=== PATIENT | male | born 1955 | race Two or more races ===

== ENCOUNTER 2021-11-03 21:44 | Emergency (ER) | payer BC ==
[~2021-11-03] VITALS: Ht 180.3 cm; Wt 108.8 kg
[2021-11-03 22:56] LABS: Basophils # (auto) 0.1 10 ^3/uL (0-0.2); Basophils % (auto) 0.6 % (0.0-2.0); Eosinophils # (auto) 0.1 10 ^3/uL (0-0.8); Eosinophils % (auto) 1.4 % (0.0-7.0); Hematocrit 44.2 % (41.0-53.0); Hemoglobin 14.4 g/dL (13.5-17.5); Lymphocytes % (auto) 33.3 % (10.0-50.0); Mean Corpuscular Hemoglobin 27.3 pg (28.0-32.0); Mean Corpuscular Hgb Conc. 32.6 g/dL (32.0-36.0); Mean Corpuscular Volume 83.7 fL (80.0-100.0); Monocytes # (auto) 0.7 10 ^3/uL (0-1.3); Monocytes % (auto) 7.8 % (0.0-12.0); Neutrophils # (auto) 5.2 10 ^3/uL (1.6-8.6); Neutrophils % (auto) 56.9 % (37.0-80.0); Nucleated Red Blood Cells % 0.1 %; Red Blood Cells 5.28 10^6/uL (4.5-5.90); Red Cell Distribution Width 18.4 % (11.8-14.3); White Blood Cell 9.1 10^3/uL (4.4-10.8)
[2021-11-04 00:48] LABS: Albumin 3.3 g/dL (3.4-5.0); BUN/Creatinine Ratio 8.4; Bilirubin, Total 0.5 mg/dL (0.2-1.0); Calcium 8.1 mg/dL (8.5-10.1); Magnesium 2.1 mg/dL (1.6-2.6); Potassium 4.1 mmol/L (3.5-5.1); Total Protein 7.6 g/dL (6.4-8.2)
[2021-11-04 01:14] LABS: Acetaminophen < 2.0 ug/mL (10-30); Salicylate < 1.7 mg/dL (2.8-20.0)
[2021-11-04] MEDS ORDERED: chlordiazePOXIDE HCL 25 MG CAP PO ONE (07:45)
[2021-11-04] MEDS ORDERED: SODIUM CHLORIDE 0.9% 1,000 ML IV ONE ×2 (07:45)
[2021-11-04] MEDS ORDERED: THIAMINE 100mg/ml INJ (200mg/2ml VIAL) IV ONE (10:15)
[2021-11-04] MEDS ORDERED: LORazepam 2MG/ML-1ML VIAL IV ONE ×3 (10:15→22:00)
[2021-11-04 14:57] LABS: Urine Bacteria NONE SEEN /hpf (None Seen); Urine Blood Negative /uL (Negative); Urine Hyaline Cast FEW /lpf (0 - 2); Urine Specific Gravity 1.023 (1.001-1.035); Urine WBC 3 /hpf (0 - 3)
[2021-11-04] MEDS ORDERED: ONDANSETRON HCL 4 MG/2 ML VIAL IV ONE (15:00)
[2021-11-04 15:20] LABS: Alcohol, Urine < 3.0 mg/dL (0-10); Amphetamine Screen, Urine NEGATIVE (NEGATIVE); Barbiturate Scree,Urine NEGATIVE (NEGATIVE); Benzodiazephine Screen, Urine POSITIVE (NEGATIVE); Cannabinoid Screen, Urine NEGATIVE (NEGATIVE); Cocaine Screen, Urine NEGATIVE (NEGATIVE); Opiate Scree,Urine NEGATIVE (NEGATIVE); Phencyclidine Screen, Urine NEGATIVE (NEGATIVE)
[2021-11-04] MEDS ORDERED: MIRTAZAPINE 30 MG TAB PO SCH (22:00)
[2021-11-04 23:00] VITALS: BP 128/80
== END 2021-11-05 07:45 | disposition home or self-care (01) ==
LOC: ER 22:04
DX: R45.851 Suicidal ideations (principal); F10.10 Alcohol abuse, uncomplicated
CPT/HCPCS: 36415; 80053; 80307; 80320; 80329; 81001; 83735; 85025; 96361; 96374; 96375; 96376; 99285; J2060; J2405; J3411; J7030

== ENCOUNTER 2022-05-26 03:00 | Observation (INO) | payer BC ==
[~2022-05-26] VITALS: Ht 180.3 cm; Wt 105.1 kg
[2022-05-26 04:11] LABS: Albumin 3.4 g/dL (3.4-5.0); BUN/Creatinine Ratio 9.1 (10.0-20.0); Magnesium 1.8 mg/dL (1.6-2.6); Potassium 4.2 mmol/L (3.5-5.1)
[2022-05-26 04:18] LABS: Basophils # (auto) 0 10 ^3/uL (0-0.2); Basophils % (auto) 0.5 % (0.0-2.0); Eosinophils # (auto) 0 10 ^3/uL (0-0.8); Eosinophils % (auto) 0.4 % (0.0-7.0); Hematocrit 39.7 % (41.0-53.0); Hemoglobin 13.2 g/dL (13.5-17.5); Lymphocytes # (auto) 2.4 10 ^3/uL (0.4-5.4); Lymphocytes % (auto) 38.6 % (10.0-50.0); Mean Corpuscular Hemoglobin 27.5 pg (28.0-32.0); Mean Corpuscular Hgb Conc. 33.2 g/dL (32.0-36.0); Mean Corpuscular Volume 82.6 fL (80.0-100.0); Monocytes # (auto) 0.5 10 ^3/uL (0-1.3); Monocytes % (auto) 7.3 % (0.0-12.0); Neutrophils # (auto) 3.4 10 ^3/uL (1.6-8.6); Neutrophils % (auto) 53.2 % (37.0-80.0); Nucleated Red Blood Cells % 0.1 %; Red Cell Distribution Width 19.2 % (11.8-14.3); White Blood Cell 6.3 10^3/uL (4.4-10.8)
[2022-05-26 04:19] LABS: Bilirubin, Total 0.9 mg/dL (0.2-1.0); Total Protein 7.3 g/dL (6.4-8.2)
[2022-05-26] MEDS ORDERED: SODIUM CHLORIDE 0.9% 1,000 ML IV ONE (05:00)
[2022-05-26 05:40] LABS: Urine Bacteria NONE SEEN /hpf (None Seen); Urine Blood Negative /uL (Negative); Urine Specific Gravity 1.004 (1.001-1.035); Urine WBC <1 /hpf (0 - 3)
[2022-05-26 05:54] LABS: Amphetamine Screen, Urine NEGATIVE (NEGATIVE); Barbiturate Scree,Urine NEGATIVE (NEGATIVE); Benzodiazephine Screen, Urine NEGATIVE (NEGATIVE); Cannabinoid Screen, Urine NEGATIVE (NEGATIVE); Cocaine Screen, Urine NEGATIVE (NEGATIVE); Phencyclidine Screen, Urine NEGATIVE (NEGATIVE)
[2022-05-26 06:03] LABS: Opiate Scree,Urine NEGATIVE (NEGATIVE)
[2022-05-26] MEDS ORDERED: THIAMINE 100mg/ml INJ (200mg/2ml VIAL) IV ONE (06:30)
[2022-05-26] MEDS ORDERED: chlordiazePOXIDE HCL 25 MG CAP PO ONE (06:30)
[2022-05-26] MEDS ORDERED: LORazepam 2MG/ML-1ML VIAL IV ONE ×4 (06:30→15:45)
[2022-05-26] MEDS ORDERED: FOLIC ACID 1 MG TAB PO ONE (06:30)
[2022-05-26] MEDS ORDERED: D5W/SOD CHLO 0.9% 1,000 ML IV ONE (06:45)
[2022-05-26] MEDS ORDERED: ONDANSETRON HCL 4 MG/2 ML VIAL IV ONE (09:45)
[2022-05-26] MEDS ORDERED: dilTIAZem 25 MG/5 ML VIAL IV ONE ×3 (13:30→22:30)
[2022-05-26] MEDS ORDERED: dilTIAZem HCL 60 MG TAB GT ONE (13:30)
[2022-05-26] MEDS ORDERED: ONDANSETRON HCL 4 MG/2 ML VIAL IV PRN (15:45)
[2022-05-26] MEDS ORDERED: ACETAMINOPHEN 325 MG TAB PO PRN (15:45)
[2022-05-26] MEDS: METOPROLOL TARTRATE 25 MG TAB PO SCH ×2 (16:33→22:32)
[2022-05-26] MEDS: chlordiazePOXIDE HCL 25 MG CAP PO SCH ×2 (19:02→22:00)
[2022-05-26 22:00] VITALS: BP 135/75
[2022-05-26] MEDS: GABAPENTIN 100 MG CAP PO SCH (22:00)
[2022-05-26 23:04] VITALS: BP 135/75
[2022-05-27] MEDS ORDERED: CHOL200035 PO (00:17)
[2022-05-27] MEDS ORDERED: QUET100T47 PO (00:17)
[2022-05-27] MEDS ORDERED: ESCI-28 PO (00:17)
[2022-05-27] MEDS ORDERED: PRE5T PO (00:17)
[2022-05-27] MEDS ORDERED: FOLI1TAB6 PO ×2 (00:17→11:18)
[2022-05-27] MEDS ORDERED: GAB100C PO ×2 (00:17→11:18)
[2022-05-27] MEDS: chlordiazePOXIDE HCL 25 MG CAP PO SCH ×3 (02:15→10:08)
[2022-05-27 05:00] VITALS: BP 119/86
[2022-05-27] MEDS: GABAPENTIN 100 MG CAP PO SCH ×2 (05:36→14:00)
[2022-05-27 06:40] LABS: Calcium 8.4 mg/dL (8.5-10.1)
[2022-05-27 06:42] LABS: BUN/Creatinine Ratio 11.3 (10.0-20.0)
[2022-05-27 09:00] VITALS: BP 134/75
[2022-05-27] MEDS: METOPROLOL TARTRATE 25 MG TAB PO SCH (10:09)
[2022-05-27] MEDS ORDERED: OPTISON 3ml Vial for INJ IV ONE (11:00)
[2022-05-27] MEDS ORDERED: METOPROLOL TARTRATE 25 MG TAB PO ONE (11:15)
[2022-05-27] MEDS ORDERED: METO25TA5 PO ×2 (11:18)
[2022-05-27] MEDS ORDERED: THIA100T5 PO (11:18)
[2022-05-27] MEDS ORDERED: FOLIC ACID 1 MG, MULTIPLE VITAMIN 10 ML, MAGNESIUM SULF SDV 50% 8 MEQ, THIAMINE INJ 100... INJ SCH ×5 (12:00)
[2022-05-27 13:00] VITALS: BP 137/81
[2022-05-27] MEDS ORDERED: chlordiazePOXIDE HCL 25 MG CAP PO PRN (13:00)
[2022-05-27] MEDS ORDERED: MET25T PO ×2 (13:30)
[2022-05-27] MEDS ORDERED: LOS25T PO (15:43)
[2022-05-27] MEDS ORDERED: APIX5TAB PO (15:43)
[2022-05-27] MEDS ORDERED: METO25TA93 PO (15:43)
[2022-05-27 16:47] VITALS: BP 167/94
[2022-05-27 17:05] VITALS: BP 132/74
[2022-05-27] MEDS ORDERED: APIXABAN 5 MG TAB PO SCH (17:21)
[2022-05-27 17:45] VITALS: BP 141/94
[2022-05-27] MEDS ORDERED: METOPROLOL TARTRATE 25 MG TAB PO SCH ×2 (22:00)
== END 2022-05-27 17:45 | disposition home or self-care (01) ==
LOC: ER 03:00 → TELE 15:50 → TELE-WESTW 21:53
PROVIDERS: ADMIT Internal Medicine; ATTEND Internal Medicine
DX: F10.239 Alcohol dependence with withdrawal, unspecified (principal); Z20.822 Contact with and (suspected) exposure to COVID-19; I48.20 Chronic atrial fibrillation, unspecified; I11.0 Hypertensive heart disease with heart failure; I50.20 Unspecified systolic (congestive) heart failure; M19.90 Unspecified osteoarthritis, unspecified site; F41.8 Other specified anxiety disorders; E87.1 Hypo-osmolality and hyponatremia; I42.6 Alcoholic cardiomyopathy; I48.91 Unspecified atrial fibrillation; Z79.01 Long term (current) use of anticoagulants; Z79.899 Other long term (current) drug therapy; Z86.73 Personal history of transient ischemic attack (TIA), and cerebral infarction without residual deficits
CPT/HCPCS: 36415; 71045; 80048; 80053; 80307; 80320; 81001; 82962; 83735; 85025; 87426; 93005; 93306; 96361; 96365; 96366; 96375; 96376; 99291; G0378; J2060; J2405; J3411; J3475; J7030; J7070; Q9956

== ENCOUNTER 2022-07-04 17:41 | Inpatient (IN) | payer BC ==
[~2022-07-04] VITALS: Ht 162.6 cm; Wt 105.0 kg
[~2022-07-04 17:41] MED LIST: APIX5TAB PO; CHOL200043 PO; ESCI1TAB36 PO; FOLI-119 PO; GAB100C PO; LOS25T PO; METO25TA93 PO; PRE5T PO; QUET100T47 PO; THIA100T5 PO
[2022-07-04] MEDS ORDERED: SODIUM CHLORIDE 0.9% 500 ML IV ONE (19:00)
[2022-07-04 19:12] LABS: Basophils # (auto) 0 10 ^3/uL (0-0.2); Basophils % (auto) 0.1 % (0.0-2.0); Eosinophils # (auto) 0 10 ^3/uL (0-0.8); Hematocrit 43.7 % (41.0-53.0); Hemoglobin 13.7 g/dL (13.5-17.5); Lymphocytes # (auto) 0.8 10 ^3/uL (0.4-5.4); Lymphocytes % (auto) 6.6 % (10.0-50.0); Mean Corpuscular Hemoglobin 27.4 pg (28.0-32.0); Mean Corpuscular Hgb Conc. 31.4 g/dL (32.0-36.0); Mean Corpuscular Volume 87.3 fL (80.0-100.0); Monocytes # (auto) 0.9 10 ^3/uL (0-1.3); Monocytes % (auto) 7.4 % (0.0-12.0); Neutrophils # (auto) 10.4 10 ^3/uL (1.6-8.6); Neutrophils % (auto) 85.9 % (37.0-80.0); Nucleated Red Blood Cells % 0.1 %; White Blood Cell 12.1 10^3/uL (4.4-10.8)
[2022-07-04 19:18] LABS: Red Cell Distribution Width 23.7 % (11.8-14.3)
[2022-07-04 19:46] LABS: Alanine Aminotransferase 65 U/L (16-61); Albumin 2.6 g/dL (3.4-5.0); Anion Gap 18 (5-15); Aspartate Aminotransferase 75 U/L (15-37); BUN/Creatinine Ratio 20.3 (10.0-20.0); Blood Alcohol < 3.0 mg/dL (0-5); Blood Urea Nitrogen 24 mg/dL (7-18); Carbon Dioxide 21 mmol/L (21-32); Chloride 98 mmol/L (98-107); GFR African American 79 mL/min; GFR Non-African American 65 mL/min; Glucose 125 mg/dL (74-106); Potassium 4.1 mmol/L (3.5-5.1); Sodium 137 mmol/L (136-145)
[2022-07-04 19:49] LABS: Alkaline Phosphatase 144 U/L (45-117); Bilirubin, Total 1.7 mg/dL (0.2-1.0); Total Protein 6.5 g/dL (6.4-8.2)
[2022-07-04 19:50] LABS: Lactic Acid w/Reflex 2.5 mmol/L (0.4-2.0)
[2022-07-04] MEDS ORDERED: LORazepam 2MG/ML-1ML VIAL IV ONE ×2 (20:00→21:15)
[2022-07-04] MEDS ORDERED: FOLIC ACID 1 MG, MULTIPLE VITAMIN 10 ML, MAGNESIUM SULF SDV 50% 8 MEQ, THIAMINE INJ 100... INJ SCH ×5 (20:13)
[2022-07-04] MEDS ORDERED: DOCUSATE SOD 100 MG CAP PO PRN (23:45)
[2022-07-04] MEDS ORDERED: HYDROcodone-ACET 5/325MG TAB PO PRN (23:45)
[2022-07-04] MEDS ORDERED: ACETAMINOPHEN 325 MG TAB PO PRN (23:45)
[2022-07-04] MEDS ORDERED: MORPHINE SULFATE INJ 2 MG/ml SYRG IV PRN (23:45)
[2022-07-04] MEDS ORDERED: ONDANSETRON HCL 4 MG/2 ML VIAL IV PRN (23:45)
[2022-07-04] MEDS ORDERED: NITROGLYCERIN 0.4 MG SL TAB SL PRN (23:45)
[2022-07-05] MEDS ORDERED: hydrALAZINE HCL 20 MG/ML VL IV PRN
[2022-07-05] MEDS: SODIUM CHLORIDE 0.9% 1,000 ML IV SCH ×3 (01:10→19:45)
[2022-07-05 03:43] VITALS: BP 143/95
[2022-07-05 05:53] LABS: Calcium 7.9 mg/dL (8.5-10.1); Potassium 3.2 mmol/L (3.5-5.1)
[2022-07-05] MEDS: chlordiazePOXIDE HCL 25 MG CAP PO PRN ×2 (05:55→21:16)
[2022-07-05] MEDS: GABAPENTIN 300 MG CAP PO SCH ×3 (05:55→21:16)
[2022-07-05] MEDS: IPRATROPIUM BROM 0.5 MG/2.5ML INH SOL NEB SCH ×4 (05:58→23:47)
[2022-07-05] MEDS: ALBUTEROL SULF 2.5 MG/0.5ML(0.5%) NEB SOLN NEB SCH ×4 (05:58→23:47)
[2022-07-05 06:01] LABS: Basophils # (auto) 0 10 ^3/uL (0-0.2); Basophils % (auto) 0.2 % (0.0-2.0); Eosinophils # (auto) 0 10 ^3/uL (0-0.8); Eosinophils % (auto) 0.1 % (0.0-7.0); Hematocrit 37.6 % (41.0-53.0); Hemoglobin 12.5 g/dL (13.5-17.5); Lymphocytes # (auto) 1.2 10 ^3/uL (0.4-5.4); Lymphocytes % (auto) 12.3 % (10.0-50.0); Mean Corpuscular Hemoglobin 28.6 pg (28.0-32.0); Mean Corpuscular Hgb Conc. 33.1 g/dL (32.0-36.0); Mean Corpuscular Volume 86.3 fL (80.0-100.0); Monocytes # (auto) 0.8 10 ^3/uL (0-1.3); Monocytes % (auto) 8.7 % (0.0-12.0); Neutrophils # (auto) 7.5 10 ^3/uL (1.6-8.6); Neutrophils % (auto) 78.7 % (37.0-80.0); Red Blood Cells 4.36 10^6/uL (4.5-5.90); White Blood Cell 9.5 10^3/uL (4.4-10.8)
[2022-07-05 06:16] LABS: Red Cell Distribution Width 23.1 % (11.8-14.3)
[2022-07-05] MEDS: LORazepam 2MG/ML-1ML VIAL IV PRN (06:21)
[2022-07-05] MEDS: PANTOPRAZOLE 40 MG/10 ML VIAL INJ IV SCH (10:04)
[2022-07-05] MEDS: METOPROLOL SUCCINATE XL 50 MG TAB PO SCH (10:05)
[2022-07-05] MEDS ORDERED: FOLIC ACID 1 MG, MULTIPLE VITAMIN 10 ML, MAGNESIUM SULF SDV 50% 8 MEQ, THIAMINE INJ 100... INJ SCH ×15 (12:00)
[2022-07-05] MEDS ORDERED: POTASSIUM EFFERVESENT TAB 25 MEQ PO ONE (12:30)
[2022-07-05 16:30] VITALS: BP 110/67
[2022-07-05 20:00] VITALS: BP 123/71
[2022-07-05 22:00] VITALS: BP 123/71
[2022-07-06] MEDS: chlordiazePOXIDE HCL 25 MG CAP PO PRN ×3 (03:06→20:34)
[2022-07-06 04:56] VITALS: BP 103/61
[2022-07-06] MEDS: SODIUM CHLORIDE 0.9% 1,000 ML IV SCH ×2 (05:45→15:40)
[2022-07-06] MEDS: GABAPENTIN 300 MG CAP PO SCH ×3 (05:51→20:34)
[2022-07-06 06:33] LABS: Basophils # (auto) 0 10 ^3/uL (0-0.2); Basophils % (auto) 0.2 % (0.0-2.0); Eosinophils # (auto) 0 10 ^3/uL (0-0.8); Eosinophils % (auto) 0.1 % (0.0-7.0); Hematocrit 35.3 % (41.0-53.0); Hemoglobin 11.8 g/dL (13.5-17.5); Lymphocytes # (auto) 0.9 10 ^3/uL (0.4-5.4); Lymphocytes % (auto) 13.8 % (10.0-50.0); Mean Corpuscular Hemoglobin 28.9 pg (28.0-32.0); Mean Corpuscular Hgb Conc. 33.3 g/dL (32.0-36.0); Mean Corpuscular Volume 86.6 fL (80.0-100.0); Monocytes # (auto) 0.6 10 ^3/uL (0-1.3); Monocytes % (auto) 9.1 % (0.0-12.0); Neutrophils # (auto) 4.9 10 ^3/uL (1.6-8.6); Neutrophils % (auto) 76.8 % (37.0-80.0); Nucleated Red Blood Cells % 0.1 %; Potassium 3.8 mmol/L (3.5-5.1); Red Blood Cells 4.08 10^6/uL (4.5-5.90); White Blood Cell 6.4 10^3/uL (4.4-10.8)
[2022-07-06 06:38] LABS: Red Cell Distribution Width 22.8 % (11.8-14.3)
[2022-07-06 06:47] LABS: Calcium 7.9 mg/dL (8.5-10.1)
[2022-07-06] MEDS: ALBUTEROL SULF 2.5 MG/0.5ML(0.5%) NEB SOLN NEB SCH ×3 (07:12→18:49)
[2022-07-06] MEDS: IPRATROPIUM BROM 0.5 MG/2.5ML INH SOL NEB SCH ×3 (07:12→18:49)
[2022-07-06 08:56] VITALS: BP 113/68
[2022-07-06] MEDS: METOPROLOL SUCCINATE XL 50 MG TAB PO SCH (09:40)
[2022-07-06] MEDS: PANTOPRAZOLE 40 MG/10 ML VIAL INJ IV SCH (09:40)
[2022-07-06 13:00] VITALS: BP 103/57
[2022-07-06 16:50] VITALS: BP 100/62
[2022-07-06] MEDS: HYDROcodone-ACET 5/325MG TAB PO PRN (20:35)
[2022-07-06 22:00] VITALS: BP 105/73
[2022-07-07] MEDS: IPRATROPIUM BROM 0.5 MG/2.5ML INH SOL NEB SCH ×4 (00:33→19:22)
[2022-07-07] MEDS: ALBUTEROL SULF 2.5 MG/0.5ML(0.5%) NEB SOLN NEB SCH ×4 (00:33→19:22)
[2022-07-07] MEDS: SODIUM CHLORIDE 0.9% 1,000 ML IV SCH ×3 (01:45→21:45)
[2022-07-07 04:56] VITALS: BP 132/74
[2022-07-07] MEDS: chlordiazePOXIDE HCL 25 MG CAP PO PRN ×2 (05:55→12:34)
[2022-07-07] MEDS: GABAPENTIN 300 MG CAP PO SCH ×3 (05:55→21:23)
[2022-07-07 06:28] LABS: Basophils # (auto) 0 10 ^3/uL (0-0.2); Basophils % (auto) 0.6 % (0.0-2.0); Eosinophils # (auto) 0.1 10 ^3/uL (0-0.8); Eosinophils % (auto) 1.4 % (0.0-7.0); Hematocrit 34.7 % (41.0-53.0); Hemoglobin 11.4 g/dL (13.5-17.5); Lymphocytes # (auto) 1.2 10 ^3/uL (0.4-5.4); Lymphocytes % (auto) 22.3 % (10.0-50.0); Mean Corpuscular Hemoglobin 28.9 pg (28.0-32.0); Mean Corpuscular Hgb Conc. 32.8 g/dL (32.0-36.0); Monocytes # (auto) 0.6 10 ^3/uL (0-1.3); Monocytes % (auto) 11.7 % (0.0-12.0); Neutrophils # (auto) 3.4 10 ^3/uL (1.6-8.6); Nucleated Red Blood Cells % 0.1 %; Red Blood Cells 3.94 10^6/uL (4.5-5.90); White Blood Cell 5.3 10^3/uL (4.4-10.8)
[2022-07-07 06:38] LABS: Red Cell Distribution Width 22.7 % (11.8-14.3)
[2022-07-07 08:43] VITALS: BP 122/56
[2022-07-07] MEDS: PANTOPRAZOLE 40 MG/10 ML VIAL INJ IV SCH (09:16)
[2022-07-07] MEDS: METOPROLOL SUCCINATE XL 50 MG TAB PO SCH (09:17)
[2022-07-07 10:13] LABS: Potassium 3.9 mmol/L (3.5-5.1)
[2022-07-07 10:20] LABS: Albumin 1.9 g/dL (3.4-5.0); BUN/Creatinine Ratio 15.2 (10.0-20.0); Bilirubin, Total 0.6 mg/dL (0.2-1.0); Calcium 7.6 mg/dL (8.5-10.1); Magnesium 1.8 mg/dL (1.6-2.6); Phosphorus 1.6 mg/dL (2.5-4.90); Total Protein 5.3 g/dL (6.4-8.2)
[2022-07-07] MEDS: POTASSIUM PHOSPHATE IV SCH ×2 (12:24→15:59)
[2022-07-07] MEDS: D5W 5% IV SCH ×2 (12:24→15:59)
[2022-07-07] MEDS: HYDROcodone-ACET 5/325MG TAB PO PRN ×2 (12:34→21:24)
[2022-07-07 12:47] VITALS: BP 121/76
[2022-07-07 16:49] VITALS: BP 133/84
[2022-07-07 20:00] VITALS: BP 134/74
[2022-07-07 22:00] VITALS: BP 134/74
[2022-07-08] VITALS (7 sets, daily range): BP systolic 114–148; BP diastolic 73–85
[2022-07-08] MEDS: IPRATROPIUM BROM 0.5 MG/2.5ML INH SOL NEB SCH ×4 (00:44→18:37)
[2022-07-08] MEDS: ALBUTEROL SULF 2.5 MG/0.5ML(0.5%) NEB SOLN NEB SCH ×4 (00:44→18:37)
[2022-07-08 05:12] LABS: Basophils # (auto) 0 10 ^3/uL (0-0.2); Basophils % (auto) 0.6 % (0.0-2.0); Eosinophils # (auto) 0.1 10 ^3/uL (0-0.8); Eosinophils % (auto) 1.5 % (0.0-7.0); Hematocrit 33.4 % (41.0-53.0); Hemoglobin 11.2 g/dL (13.5-17.5); Lymphocytes # (auto) 1.2 10 ^3/uL (0.4-5.4); Lymphocytes % (auto) 26.8 % (10.0-50.0); Mean Corpuscular Hemoglobin 29.2 pg (28.0-32.0); Mean Corpuscular Hgb Conc. 33.4 g/dL (32.0-36.0); Mean Corpuscular Volume 87.4 fL (80.0-100.0); Monocytes # (auto) 0.6 10 ^3/uL (0-1.3); Monocytes % (auto) 13.6 % (0.0-12.0); Neutrophils # (auto) 2.7 10 ^3/uL (1.6-8.6); Neutrophils % (auto) 57.5 % (37.0-80.0); Red Blood Cells 3.82 10^6/uL (4.5-5.90); White Blood Cell 4.7 10^3/uL (4.4-10.8)
[2022-07-08 05:13] LABS: Red Cell Distribution Width 23.1 % (11.8-14.3)
[2022-07-08] MEDS: GABAPENTIN 300 MG CAP PO SCH ×3 (05:29→22:06)
[2022-07-08 05:34] LABS: Potassium 4.5 mmol/L (3.5-5.1)
[2022-07-08 05:37] LABS: BUN/Creatinine Ratio 14.3 (10.0-20.0); Calcium 7.5 mg/dL (8.5-10.1); Magnesium 1.6 mg/dL (1.6-2.6); Phosphorus 2.9 mg/dL (2.5-4.90)
[2022-07-08] MEDS: HYDROcodone-ACET 5/325MG TAB PO PRN ×3 (06:51→18:58)
[2022-07-08] MEDS: PANTOPRAZOLE 40 MG/10 ML VIAL INJ IV SCH (09:33)
[2022-07-08] MEDS: METOPROLOL SUCCINATE XL 50 MG TAB PO SCH (09:34)
[2022-07-08] MEDS: LORazepam 2MG/ML-1ML VIAL IV PRN (09:35)
[2022-07-08] MEDS: SODIUM CHLORIDE 0.9% 1,000 ML IV SCH ×2 (09:36→17:45)
[2022-07-09] MEDS: SODIUM CHLORIDE 0.9% 1,000 ML IV SCH ×3 (03:45→14:47)
[2022-07-09 05:00] VITALS: BP 145/90
[2022-07-09] MEDS: GABAPENTIN 300 MG CAP PO SCH ×2 (05:20→14:12)
[2022-07-09] MEDS: HYDROcodone-ACET 5/325MG TAB PO PRN ×2 (05:20→11:24)
[2022-07-09] MEDS: IPRATROPIUM BROM 0.5 MG/2.5ML INH SOL NEB SCH ×2 (06:32→11:59)
[2022-07-09] MEDS: ALBUTEROL SULF 2.5 MG/0.5ML(0.5%) NEB SOLN NEB SCH ×2 (06:32→11:59)
[2022-07-09 06:48] LABS: Basophils # (auto) 0.1 10 ^3/uL (0-0.2); Eosinophils # (auto) 0.1 10 ^3/uL (0-0.8); Eosinophils % (auto) 1.7 % (0.0-7.0); Hematocrit 32.6 % (41.0-53.0); Lymphocytes # (auto) 1.5 10 ^3/uL (0.4-5.4); Lymphocytes % (auto) 25.4 % (10.0-50.0); Mean Corpuscular Hemoglobin 29.5 pg (28.0-32.0); Mean Corpuscular Hgb Conc. 33.8 g/dL (32.0-36.0); Mean Corpuscular Volume 87.3 fL (80.0-100.0); Monocytes # (auto) 0.9 10 ^3/uL (0-1.3); Monocytes % (auto) 15.9 % (0.0-12.0); Neutrophils # (auto) 3.2 10 ^3/uL (1.6-8.6); Nucleated Red Blood Cells % 0.1 %; Red Blood Cells 3.73 10^6/uL (4.5-5.90); White Blood Cell 5.8 10^3/uL (4.4-10.8)
[2022-07-09 07:05] LABS: Red Cell Distribution Width 23.1 % (11.8-14.3)
[2022-07-09 07:40] LABS: Potassium 4.5 mmol/L (3.5-5.1)
[2022-07-09 07:45] LABS: BUN/Creatinine Ratio 11.5 (10.0-20.0)
[2022-07-09 08:39] VITALS: BP 126/75
[2022-07-09] MEDS: PANTOPRAZOLE 40 MG/10 ML VIAL INJ IV SCH (09:30)
[2022-07-09] MEDS: METOPROLOL SUCCINATE XL 50 MG TAB PO SCH (09:31)
[2022-07-09 13:00] VITALS: BP 105/61
[2022-07-09 13:02] VITALS: BP 121/80
== END 2022-07-09 14:50 | DRG 897 ==
LOC: ER 17:41 → EDBD 17:41 → TELE 23:59 → TELE-EAST 07-05 14:52
PROVIDERS: ADMIT Nurse Practitioner Family; ATTEND Nurse Practitioner Family
DX: F10.239 Alcohol dependence with withdrawal, unspecified (principal); I48.20 Chronic atrial fibrillation, unspecified; R53.1 Weakness; R29.6 Repeated falls; R56.9 Unspecified convulsions; I25.10 Atherosclerotic heart disease of native coronary artery without angina pectoris; E78.5 Hyperlipidemia, unspecified; R74.01 Elevation of levels of liver transaminase levels; I10 Essential (primary) hypertension; E83.39 Other disorders of phosphorus metabolism; Y90.9 Presence of alcohol in blood, level not specified; Z82.3 Family history of stroke; Z80.1 Family history of malignant neoplasm of trachea, bronchus and lung; Z79.01 Long term (current) use of anticoagulants; Z95.5 Presence of coronary angioplasty implant and graft
CPT/HCPCS: 36415; 70450; 71045; 71250; 72125; 73502; 74176; 80048; 80053; 80320; 83605; 83735; 84100; 84484; 85025; 87040; 93005; 94640; 96361; 96365; 96375; 97110; 97116; 97163; 97530; C9113; G0378; J2405; J7060

== ENCOUNTER 2022-12-04 05:10 | Emergency (ER) | payer BC ==
[~2022-12-04] VITALS: Ht 182.9 cm; Wt 120.0 kg
[2022-12-04 06:25] LABS: Basophils # (auto) 0 10 ^3/uL (0-0.2); Basophils % (auto) 0.4 % (0.0-2.0); Eosinophils # (auto) 0.1 10 ^3/uL (0-0.8); Lymphocytes # (auto) 2.6 10 ^3/uL (0.4-5.4); Neutrophils % (auto) 64.1 % (37.0-80.0)
[2022-12-04 06:26] LABS: Eosinophils % (auto) 0.8 % (0.0-7.0); Hematocrit 42.3 % (41.0-53.0); Hemoglobin 14.3 g/dL (13.5-17.5); Lymphocytes % (auto) 26.9 % (10.0-50.0); Mean Corpuscular Hemoglobin 25.9 pg (28.0-32.0); Mean Corpuscular Hgb Conc. 33.7 g/dL (32.0-36.0); Mean Corpuscular Volume 76.9 fL (80.0-100.0); Monocytes # (auto) 0.8 10 ^3/uL (0-1.3); Monocytes % (auto) 7.8 % (0.0-12.0); Neutrophils # (auto) 6.3 10 ^3/uL (1.6-8.6); Nucleated Red Blood Cells % 0.1 %; Red Blood Cells 5.51 10^6/uL (4.5-5.90); Red Cell Distribution Width 19.3 % (11.8-14.3); White Blood Cell 9.8 10^3/uL (4.4-10.8)
[2022-12-04 06:33] LABS: Alanine Aminotransferase 35 U/L (7-40); Albumin 4.5 g/dL (3.2-4.8); Alkaline Phosphatase 104 U/L (46-116); Anion Gap 12 (5-15); Aspartate Aminotransferase 38 U/L (13-40); BUN/Creatinine Ratio 13.8 (10.0-20.0); Blood Alcohol 39.9 mg/dL (<10); Blood Urea Nitrogen 9 mg/dL (9-23); Calcium 8.8 mg/dL (8.7-10.4); Carbon Dioxide 19 mmol/L (20-30); Chloride 98 mmol/L (98-107); Glucose 102 mg/dL (74-106); Potassium 4.2 mmol/L (3.5-5.1); Sodium 129 mmol/L (136-145)
[2022-12-04 06:34] LABS: Bilirubin, Total 0.7 mg/dL (0.2-1.0); Total Protein 7.3 g/dL (5.7-8.2)
[2022-12-04 06:35] LABS: Acetaminophen < 2.0 UG/ML (10.0-20.0)
[2022-12-04 06:37] LABS: Salicylate < 3.0 mg/dL (2.8-20.0)
[2022-12-04 09:11] LABS: Urine Bacteria NONE SEEN /hpf (None Seen); Urine Blood Negative /uL (Negative); Urine Clarity Clear (Clear); Urine Color Colorless (Yellow); Urine Protein, UAD Negative (Negative); Urine Urobilinogen Normal (Negative); Urine WBC <1 /hpf (0 - 3); Urine pH 5.5 (5.0-8.0)
[2022-12-04 09:17] LABS: Amphetamine Screen, Urine Neg (NEGATIVE); Barbiturate Scree,Urine Neg (NEGATIVE); Benzodiazephine Screen, Urine Neg (NEGATIVE); Cannabinoid Screen, Urine Neg (NEGATIVE); Cocaine Screen, Urine Neg (NEGATIVE); Opiate Scree,Urine Neg (NEGATIVE); Phencyclidine Screen, Urine Neg (NEGATIVE)
[2022-12-04] MEDS ORDERED: PANTOPRAZOLE 40 MG TAB PO ONE (09:30)
[2022-12-04] MEDS ORDERED: PROCHLORPERAZINE EDISYLATE 5 MG/ML 2ML VIAL IM ONE (09:30)
[2022-12-04] MEDS ORDERED: LORazepam 2MG/ML-1ML VIAL IM ONE (09:30)
[2022-12-04 10:44] VITALS: PULSE 99; RESP 16; TEMP 97.8; O2SAT 96
[2022-12-04] MEDS ORDERED: LORazepam 2MG/ML-1ML VIAL IV ONE (12:45)
[2022-12-04] MEDS ORDERED: SODIUM CHLORIDE 0.9% 1,000 ML IV ONE (12:45)
[2022-12-04 15:18] VITALS: BP 135/91; PULSE 110; RESP 19; O2SAT 94
[2022-12-04] MEDS ORDERED: HYDR25CA PO (15:18)
== END 2022-12-04 15:15 | disposition home or self-care (01) ==
LOC: ER 05:10 → EDBD 05:10 → ER 15:15
DX: F10.239 Alcohol dependence with withdrawal, unspecified (principal); F32.9 Major depressive disorder, single episode, unspecified; F41.9 Anxiety disorder, unspecified; Z79.899 Other long term (current) drug therapy
CPT/HCPCS: 36415; 70450; 71045; 80053; 80307; 80320; 80329; 81001; 82550; 85025; 96361; 96372; 96374; 99285; J0780; J2060; J7030

== ENCOUNTER 2023-06-11 17:31 | Emergency (ER) | payer BC ==
[~2023-06-11] VITALS: Ht 180.3 cm; Wt 108.4 kg
[~2023-06-11 17:31] MED LIST changes: +HYDR25CA PO
[2023-06-11 18:40] LABS: Basophils # (auto) 0 10 ^3/uL (0-0.2); Basophils % (auto) 0.5 % (0.0-2.0); Eosinophils # (auto) 0.1 10 ^3/uL (0-0.8); Eosinophils % (auto) 0.5 % (0.0-7.0); Hematocrit 44.9 % (41.0-53.0); Hemoglobin 15.3 g/dL (13.5-17.5); Lymphocytes # (auto) 1.8 10 ^3/uL (0.4-5.4); Lymphocytes % (auto) 17.7 % (10.0-50.0); Mean Corpuscular Hemoglobin 28.1 pg (28.0-32.0); Mean Corpuscular Hgb Conc. 34.1 g/dL (32.0-36.0); Mean Corpuscular Volume 82.2 fL (80.0-100.0); Monocytes # (auto) 0.5 10 ^3/uL (0-1.3); Monocytes % (auto) 5.2 % (0.0-12.0); Neutrophils % (auto) 76.1 % (37.0-80.0); Nucleated Red Blood Cells % 0.1 %; Red Blood Cells 5.47 10^6/uL (4.5-5.90); Red Cell Distribution Width 16.2 % (11.8-14.3); White Blood Cell 10.4 10^3/uL (4.4-10.8)
[2023-06-11 18:56] LABS: Alanine Aminotransferase 36 U/L (7-40); Albumin 4.5 g/dL (3.2-4.8); Alkaline Phosphatase 95 U/L (46-116); Anion Gap 17 (5-15); Aspartate Aminotransferase 33 U/L (13-40); BUN/Creatinine Ratio 12.2 (10.0-20.0); Blood Alcohol 99.6 mg/dL (<10); Blood Urea Nitrogen 10 mg/dL (9-23); Carbon Dioxide 14 mmol/L (20-30); Chloride 95 mmol/L (98-107); Glucose 128 mg/dL (74-106); Potassium 4.6 mmol/L (3.5-5.1); Sodium 126 mmol/L (136-145)
[2023-06-11 18:57] LABS: Bilirubin, Total 0.9 mg/dL (0.2-1.0); Total Protein 6.7 g/dL (5.7-8.2)
[2023-06-11 20:12] LABS: INR 0.98 (0.9-1.15); Prothrombin Time 10.3 sec (9.3-11.8)
[2023-06-11 21:02] VITALS: PULSE 94; RESP 20; O2SAT 97
[2023-06-11] MEDS: ONDANSETRON HCL 4 MG/2 ML VIAL IV ONE ×2 (21:11→22:17)
[2023-06-11] MEDS: SODIUM CHLORIDE 0.9% 1,000 ML IV ONE (21:11)
[2023-06-11 21:50] LABS: Lactic Acid w/Reflex 4.6 mmol/L (0.4-2.0)
[2023-06-11] MEDS: PANTOPRAZOLE 40 MG/10 ML VIAL INJ IV ONE (22:17)
[2023-06-11] MEDS: PANTOPRAZOLE 80 MG in SODIUM CHL 0.9% 100 ML IV ONE (22:17)
[2023-06-11] MEDS: PANTOPRAZOLE 40mg/50ML NS AE 50 ML IV ONE (23:21)
[2023-06-12] MEDS: MORPHINE SULFATE 4 MG/ML SYR/VIAL IV ONE (01:50)
[2023-06-12] MEDS: ONDANSETRON HCL 4 MG/2 ML VIAL IV ONE (01:50)
[2023-06-12 04:17] VITALS: BP 130/82; PULSE 85; RESP 12; TEMP 98.1; O2SAT 94
== END 2023-06-12 04:07 | disposition short-term general hospital (02) ==
LOC: ER 17:31
DX: K92.2 Gastrointestinal hemorrhage, unspecified (principal); K20.90 Esophagitis, unspecified without bleeding; E87.20 Acidosis, unspecified; F10.10 Alcohol abuse, uncomplicated; E78.5 Hyperlipidemia, unspecified; I10 Essential (primary) hypertension
CPT/HCPCS: 36415; 74176; 80053; 80320; 82010; 83605; 83690; 84484; 85025; 85610; 86850; 86900; 86901; 93005; 96361; 96365; 96366; 96375; 96376; 99285; C9113; J2270; J2405; J7030; 96368

== ENCOUNTER 2023-12-02 06:21 | Emergency (ER) | payer BC ==
[~2023-12-02] VITALS: Ht 180.3 cm; Wt 109.0 kg
[2023-12-02 07:31] LABS: Basophils # (auto) 0.1 10 ^3/uL (0-0.2); Basophils % (auto) 0.5 % (0.0-2.0); Eosinophils # (auto) 0.2 10 ^3/uL (0-0.8); Eosinophils % (auto) 1.7 % (0.0-7.0); Hemoglobin 15.1 g/dL (13.5-17.5); Lymphocytes # (auto) 1.8 10 ^3/uL (0.4-5.4); Lymphocytes % (auto) 19.2 % (10.0-50.0); Mean Corpuscular Hemoglobin 28.4 pg (28.0-32.0); Mean Corpuscular Hgb Conc. 33.6 g/dL (32.0-36.0); Mean Corpuscular Volume 84.3 fL (80.0-100.0); Monocytes # (auto) 0.7 10 ^3/uL (0-1.3); Monocytes % (auto) 7.1 % (0.0-12.0); Neutrophils # (auto) 6.8 10 ^3/uL (1.6-8.6); Neutrophils % (auto) 71.5 % (37.0-80.0); Nucleated Red Blood Cells % 0.1 %; Platelet Count (auto) 273 10^3/uL (140-450); Red Blood Cells 5.34 10^6/uL (4.5-5.90); Red Cell Distribution Width 17.5 % (11.8-14.3); White Blood Cell 9.4 10^3/uL (4.4-10.8)
[2023-12-02 07:35] LABS: Alanine Aminotransferase 25 U/L (7-40); Albumin 4.2 g/dL (3.2-4.8); Alkaline Phosphatase 102 U/L (46-116); Anion Gap 14 (5-15); Aspartate Aminotransferase 26 U/L (13-40); BUN/Creatinine Ratio 6.3 (10.0-20.0); Bilirubin, Total 0.4 mg/dL (0.2-1.0); Blood Urea Nitrogen 5 mg/dL (9-23); Carbon Dioxide 17 mmol/L (20-31); Chloride 99 mmol/L (98-107); Glucose 120 mg/dL (74-106); Potassium 4.4 mmol/L (3.5-5.1); Sodium 130 mmol/L (136-145); Total Protein 7.4 g/dL (5.7-8.2)
[2023-12-02 07:36] VITALS: PULSE 72; O2SAT 96
[2023-12-02 07:55] VITALS: PULSE 99; RESP 14; O2SAT 95
[2023-12-02] MEDS: FOLIC ACID 1 MG TAB PO ONE (08:13)
[2023-12-02] MEDS: MULTIPLE VITAMIN TAB PO ONE (08:13)
[2023-12-02] MEDS: THIAMINE 100mg/ml INJ (200mg/2ml VIAL) IV ONE (08:13)
[2023-12-02] MEDS: SODIUM CHLORIDE 0.9% 500 ML IVB ONE (08:13)
[2023-12-02] MEDS: ONDANSETRON HCL 4 MG/2 ML VIAL IV ONE (10:33)
[2023-12-02] MEDS: LORazepam 2MG/ML-1ML VIAL IV PRN (11:56)
[2023-12-02] MEDS ORDERED: GAB100C PO (13:56)
[2023-12-02] MEDS ORDERED: GABAPENTIN 100 MG CAP PO SCH (14:00)
[2023-12-02] MEDS: hydrALAZINE HCL 20 MG/ML VL IV ONE (14:30)
[2023-12-02] MEDS: GABAPENTIN 300 MG CAP PO SCH (14:41)
[2023-12-02] MEDS: hydrOXYzine 25 MG TAB or CAP PO SCH (14:42)
[2023-12-02] MEDS: METOPROLOL TARTRATE 25 MG TAB PO SCH (14:42)
[2023-12-02] MEDS: LOSARTAN POTASSIUM 25 MG TAB PO SCH (14:43)
[2023-12-02] MEDS: chlordiazePOXIDE HCL 25 MG CAP PO PRN (17:39)
[2023-12-02 19:45] VITALS: PULSE 103; RESP 14; O2SAT 95
[2023-12-02] MEDS ORDERED: QUEtiapine FUMARATE 25 MG TAB PO SCH (22:00)
[2023-12-02] MEDS: APIXABAN 5 MG TAB PO SCH (22:28)
[2023-12-02] MEDS: QUEtiapine FUMARATE 25 MG TAB PO SCH (22:29)
[2023-12-03 07:30] VITALS: PULSE 95; RESP 14; O2SAT 98
[2023-12-03 08:09] VITALS: TEMP 97.9
[2023-12-03] MEDS: VENLAFAXINE HCL 37.5mg XR cap PO SCH (10:55)
[2023-12-03 12:25] VITALS: BP 127/82; PULSE 99; RESP 17; O2SAT 98
[2023-12-08 07:07] LABS: Vitamin B1, Whole Blood 239.6 nmol/L (66.5-200.0)
== END 2023-12-03 12:52 | disposition home or self-care (01) ==
LOC: EDBD 06:21 → ER 06:21 → EDUNIT# 06:21 → ER 12-03 12:52
DX: F10.139 Alcohol abuse with withdrawal, unspecified (principal); E87.1 Hypo-osmolality and hyponatremia; I10 Essential (primary) hypertension; M19.90 Unspecified osteoarthritis, unspecified site; F41.9 Anxiety disorder, unspecified; Z79.01 Long term (current) use of anticoagulants; Z79.52 Long term (current) use of systemic steroids; Z79.899 Other long term (current) drug therapy; Y90.8 Blood alcohol level of 240 mg/100 ml or more
CPT/HCPCS: 36415; 80053; 80320; 82746; 84425; 85025; 96361; 96374; 96375; 99285; J2060; J2405; J3411; J7030

== ENCOUNTER 2024-03-06 00:31 | Inpatient (IN) | payer BC ==
[~2024-03-06] VITALS: Ht 180.3 cm; Wt 114.4 kg
[2024-03-06] MEDS: SODIUM CHLORIDE 0.9% 1,000 ML IV SCH (00:04)
[2024-03-06] MEDS: IOHEXOL 300 MG/ML 100ML BOTTLE IJ ONE (00:57)
[2024-03-06 01:18] LABS: Basophils # (auto) 0 10 ^3/uL (0-0.2); Basophils % (auto) 0.2 % (0.0-2.0); Eosinophils # (auto) 0.1 10 ^3/uL (0-0.8); Eosinophils % (auto) 0.3 % (0.0-7.0); Hematocrit 46.3 % (41.0-53.0); Hemoglobin 15.4 g/dL (13.5-17.5); Lymphocytes # (auto) 0.8 10 ^3/uL (0.4-5.4); Lymphocytes % (auto) 4.4 % (10.0-50.0); Mean Corpuscular Hemoglobin 27.9 pg (28.0-32.0); Mean Corpuscular Hgb Conc. 33.2 g/dL (32.0-36.0); Monocytes % (auto) 5.4 % (0.0-12.0); Neutrophils # (auto) 16.1 10 ^3/uL (1.6-8.6); Neutrophils % (auto) 89.7 % (37.0-80.0); Platelet Count (auto) 355 10^3/uL (140-450); Red Blood Cells 5.51 10^6/uL (4.5-5.90); Red Cell Distribution Width 17.2 % (11.8-14.3)
[2024-03-06 01:35] LABS: Albumin 4.7 g/dL (3.2-4.8); Alkaline Phosphatase 85 U/L (46-116); Anion Gap 9 (5-15); BUN/Creatinine Ratio 9.1 (10.0-20.0); Bilirubin, Total 0.9 mg/dL (0.2-1.0); Blood Urea Nitrogen 11 mg/dL (9-23); Calcium 10.1 mg/dL (8.7-10.4); Lipase 39 U/L (12-53); Potassium 4.4 mmol/L (3.5-5.1); Total Protein 7.7 g/dL (5.7-8.2)
[2024-03-06 01:39] LABS: INR 1.05 (0.9-1.15); Prothrombin Time 11.1 sec (9.3-11.8)
[2024-03-06 01:46] LABS: Alanine Aminotransferase 45 U/L (7-40); Aspartate Aminotransferase 58 U/L (13-40); Carbon Dioxide 20 mmol/L (20-31); Chloride 90 mmol/L (98-107); Glucose 154 mg/dL (74-106); Sodium 119 mmol/L (136-145)
[2024-03-06 01:47] LABS: Lactic Acid w/Reflex 2.1 mmol/L (0.4-2.0)
[2024-03-06] MEDS: PANTOPRAZOLE 40 MG/10 ML VIAL INJ IV ONE (01:50)
--- NOTE | 2024-03-06 01:50 | ED.PDOC ---
History of Present Illness HPI Comments 68 y/o M, with a Hx of AFIB, CAD s/p PCI, HLD, HTN, and alcohol abuse, is BIBA for c/o nausea, vomiting, and hematemesis, today. Per EMS report, patient endorses on unprovoked onset of symptoms, yesterday, that has been persisting since amidst ED visit at [facility] then. EMS staff comments on finding the patient with "bright red liquid bile" next to him on scene in addition to finding the patient with a blood glucose of 161, tachycardic, and 93%RA. En route, patient was placed on 2LPM O2 and given 4mg Zofran ODT. Upon arrival to ED, patient had a temperature of 97.8F, pulse rate of 119, respiratory rate of 24, blood pressure of 154/108, and a SPO2 of 99% on 2LPM. At time of assessment, patient is a poor historian and reports on, instead, suspecting on "coughing blood" instead of vomiting it as well as complain of RUQ pain that started, yesterday, after he fell out of his rocking chair in attempt to catch his pet dog. He denies any weakness, lightheadedness, shortness of breath, chest pain, fever, chills, additional injuries, or other associated symptoms or modifiers at this time. Chief Complaint: GI Bleed Time Seen by MD: 00:40 Primary Care Provider: Unknown Reviewed Notes: Nurses Notes, Certified Medicine Aide Notes, Medications, Allergies Allergies: Coded Allergies: NO KNOWN ALLERGIES (Unverified , 11/03/21) Home Meds Active Scripts Gabapentin (Gabapentin) 100 Mg Cap, 3 CAP PO TID, #63 CAP Take 3 tablets (300mg) by mouth three times daily for 7 days then continue home dose of 100mg po TID. Prov:LUCILLE RICHARDS MD 12/02/23 Hydroxyzine Pamoate (Vistaril) 25 Mg Cap, 1 CAP PO TID, #90 CAP 1 Refill Prov:CHENCHO BONILLA MD 12/04/22 Losartan Potassium (Losartan Potassium) 25 Mg Tab, 25 MG PO DAILY, #30 TAB Prov:LUCILLE RICHARDS MD 05/27/22 Apixaban Base (ELIQUIS) 5 Mg Tab, 5 MG PO BID, #60 TAB Prov:LUCILLE RICHARDS MD 05/27/22 Metoprolol Succinate (Metoprolol Succinate Er) 25 Mg Tab, 25 MG PO DAILY, #60 TAB Prov:LUCILLE RICHARDS MD 05/27/22 Thiamine Hcl (Thiamine Hcl) 100 Mg Tab, 100 MG PO DAILY, #30 TAB Prov:LUCILLE RICHARDS MD 05/27/22 Folic Acid (Folic Acid) 1 Mg Tab, 1 TAB PO DAILY, #30 TAB Prov:LUCILLE RICHARDS MD 05/27/22 Reported Medications Cholecalciferol (D3 SUPER STRENGTH) 2,000 Unit Cap, 1 CAP PO DAILY 05/27/22 Prednisone (Prednisone) 5 Mg Tab, 1 TAB PO BID 05/27/22 Quetiapine Fumerate (QUETIAPINE FUMARATE) 100 Mg Tab, 1 TAB PO 05/27/22 Escitalopram Oxalate (ESCITALOPRAM OXALATE) 10 Mg Tab, 1 TAB PO DAILY 05/27/22 Information Source: Patient, Emergency Med Personnel Mode of Arrival: EMS Severity: Moderate Timing: Days Duration: Since onset Prehospital treatment: 12 Lead EKG, Accucheck (161), Bander Hand, Oxygen (2LPM NC), Treatment (4mg Zofran) Review of Systems: REVIEW OF SYSTEMS: No fever, no chills, or fatigue HEENT: No sore throat, no earache, no congestion, no neck pain. Cardiac: No chest pain. No palpitations. Lungs: Hemoptysis?, cough?, no shortness of breath GI: Hematemesis?, nausea?, vomiting?, no diarrhea, no constipation, no abdominal pain : No dysuria, frequency, or urgency. No hematuria. Musculoskeletal: No joint pain , no joint swelling, no extremity edema. Skin: No rash, no itching. Neuro: No headache, no dizziness, no weakness Vital Signs Vital Signs Date Time Temp Pulse Resp B/P (MAP) Pulse Ox O2 Delivery O2 Flow Rate FiO2 03/06/24 04:30 111 22 147/85 03/06/24 03:00 96 03/06/24 01:30 97.7 97.7 03/06/24 01:30 Room Air* 0 21 Physical Exam General: Awake, alert and oriented. No acute distress. Skin: Skin in warm, dry and intact. Appropriate color for ethnicity. Nailbeds pink with no cyanosis. HEENT: The head is normocephalic and atraumatic. Conjunctivae are clear without exudates or hemorrhage. Sclera is non-icteric. EOM are intact. No signs of nystagmus. Eyelids are normal in appearance without swelling or lesions. Oral mucosa is pink and moist Neck: The neck is supple with normal range of motion. No JVD. Cardiac: Heart rate and rhythm are normal. No murmurs, gallops, or rubs are auscultated. Right-chest wall tenderness. Respiratory: No signs of respiratory distress. Lung sounds are clear in all lobes bilaterally without rales, ronchi, or wheezes. Abdominal: Abdomen is soft, distended, and with RUQ tenderness. Bowel sounds are present and normoactive in all four quadrants. Extremities: Upper and lower extremities are atraumatic in appearance without deformity or edema. Neurological: The patient is awake, alert and oriented to person, place, and time with normal speech. Speech is clear. There is no facial asymmetry. Psychiatric: Appropriate mood and affect. Good judgement and insight. No visual or auditory hallucinations. Past Medical History PAST MEDICAL HISTORY: AFIB (w/Eliquis use ), Anxiety, Arthritis, CAD (s/p PCI), High Lipids, HTN Past Medical History (Other): alcohol withdrawals Surgical History: Denies all surgeries Family History Family History: Reviewed,noncontributory to illness, Unknown Social History Smoker: Non-Smoker Alcohol: Heavy Drugs: Denies Drug Use Lives In: Home Was a procedure done? Was a procedure done?: No EKG EKG : Pulse Rate (adult): 113 [place]: Normal Cardiac Rhythm: ST Block: None Hypertrophy: None ST: Normal Differential Dx Considerations may include: upper GI bleed, esophagitis, GERD, acute respiratory tract infection, PUD, esophageal varices, Eliquis use, EtOH-induced X-Ray, Labs, Meds, VS Vital Signs Date Time Temp Pulse Resp B/P (MAP) Pulse Ox O2 Delivery O2 Flow Rate FiO2 03/06/24 04:30 111 22 147/85 03/06/24 03:02 111 27 165/99 03/06/24 03:00 111 27 165/99 (121) 96 03/06/24 02:45 110 29 122/78 03/06/24 02:20 114 24 138/97 03/06/24 01:50 113 03/06/24 01:30 97.7 114 24 138/97 (111) 94 97.7 03/06/24 01:30 Room Air* 0 21 03/06/24 00:42 113 03/06/24 00:36 97.8 119 24 154/108 (123) 99 Lab Test 03/06/24 05:00 03/06/24 03:07 03/06/24 01:05 Range/Units Urine Color Pending Urine Clarity Pending Urine pH Pending Urine Specific [place] Pending Urine Protein Pending Urine Ketones Pending Urine Blood Pending Urine Nitrite Pending Urine Bilirubin Pending Urine Urobilinogen Pending Urine Leukocyte Esterase Pending Urine RBC Pending Urine WBC Pending Urine Squamous Epithelial Cells Pending Urine Bacteria Pending Urine Glucose Pending Lactic Acid Level 1.7 2.1 *H 0.4-2.0 mmol/L White Blood Count 18.0 H 4.4-10.8 10^3/uL Red Blood Count 5.51 4.5-5.90 10^6/uL Hemoglobin 15.4 13.5-17.5 g/dL Hematocrit 46.3 41.0-53.0 % Mean Corpuscular Volume 84.0 80.0-100.0 fL Mean Corpuscular Hemoglobin 27.9 L 28.0-32.0 pg Mean Corpuscular Hemoglobin Concent 33.2 32.0-36.0 g/dL Red Cell Distribution Width 17.2 H 11.8-14.3 % Platelet Count 355 140-450 10^3/uL Mean Platelet Volume 6.2 L 6.9-10.8 fL Neutrophils (%) (Auto) 89.7 H 37.0-80.0 % Lymphocytes (%) (Auto) 4.4 L 10.0-50.0 % Monocytes (%) (Auto) 5.4 0.0-12.0 % Eosinophils (%) (Auto) 0.3 0.0-7.0 % Basophils (%) (Auto) 0.2 0.0-2.0 % Neutrophils # (Auto) 16.1 H 1.6-8.6 10 ^3/uL Lymphocytes # (Auto) 0.8 0.4-5.4 10 ^3/uL Monocytes # (Auto) 1.0 0-1.3 10 ^3/uL Eosinophils # (Auto) 0.1 0-0.8 10 ^3/uL Basophils # (Auto) 0 0-0.2 10 ^3/uL Nucleated Red Blood Cells 0.0 % Prothrombin Time 11.1 9.3-11.8 sec Prothrombin Time INR 1.05 0.9-1.15 Sodium Level 119 *L 136-145 mmol/L Potassium Level 4.4 3.5-5.1 mmol/L Chloride Level 90 L 98-107 mmol/L Carbon Dioxide Level 20 20-31 mmol/L Anion Gap 9 5-15 Blood Urea Nitrogen 11 9-23 mg/dL Creatinine 1.21 0.700-1.30 mg/dL Glomerular Filtration Rate Calc 65 >90 mL/min BUN/Creatinine Ratio 9.1 L 10.0-20.0 Serum Glucose 154 H 74-106 mg/dL Calcium Level 10.1 8.7-10.4 mg/dL Total Bilirubin 0.9 0.2-1.0 mg/dL Aspartate Amino Transferase (AST) 58 H 13-40 U/L Alanine Aminotransferase (ALT) 45 H 7-40 U/L Alkaline Phosphatase 85 46-116 U/L Total Protein 7.7 5.7-8.2 g/dL Albumin 4.7 3.2-4.8 g/dL Lipase 39 12-53 U/L Plasma/Serum Blood Alcohol 3.4 <10 mg/dL Current Medications Medications (Trade) Dose Ordered Sig/Arthur Route Start Time Stop Time Status Last Admin Pantoprazole Sodium (Protonix) 40 mg ONCE ONCE IV 03/06/24 00:45 03/06/24 00:46 DC 03/06/24 01:50 Ondansetron HCl (Zofran) 4 mg ONCE ONCE IV 03/06/24 02:00 03/06/24 02:01 DC 03/06/24 02:02 Morphine Sulfate 2 mg ONCE ONCE IV 03/06/24 02:15 03/06/24 02:16 DC 03/06/24 02:20 Ceftriaxone Sodium 50 ml @ 100 mls/hr ONCE ONCE IV 03/06/24 02:30 03/06/24 02:59 DC 03/06/24 02:45 Vancomycin HCl 250 ml @ 250 mls/hr ONCE ONCE IV 03/06/24 02:30 03/06/24 03:29 DC 03/06/24 03:07 Morphine Sulfate 2 mg ONCE ONCE IV 03/06/24 03:00 03/06/24 03:01 DC 03/06/24 03:02 Metoclopramide HCl (Reglan Injection) 5 mg ONCE ONCE IV 03/06/24 03:15 03/06/24 03:17 DC 03/06/24 03:26 Octreotide Acetate 100 mcg/ Sodium Chloride 51 ml @ 204 mls/hr ONCE ONCE IV 03/06/24 03:30 03/06/24 03:44 DC 03/06/24 03:58 Sodium Chloride 1,000 ml @ 130 mls/hr [id number] ONCE IV 03/06/24 05:30 03/06/24 13:11 03/06/24 05:42 [place] [address] Ph: [phone] DIAGNOSTIC IMAGING Diagnostic Imaging Report : [id number] Signed PATIENT: CRISTELA HODGSON ACCT: [id number] UNIT: [id number] : 1955 LOC: ER ROOM / BED: / AGE / SEX: 68 / M ADM STATUS: REG ER SERVICE 0050 ORDERING PHYSICIAN: MARGE HERNANDEZ MD PROCEDURE(s): CAPIV - CT CHEST/AB/PL W CON- IV ONLY REASON: Hematemesis ORDER NUMBER(s): [id number], ACCESSION NUMBER(s): [id number] Examination: CAPIV CLINICAL INDICATION: Hematemesis . COMPARISON: None. CONTRAST USED: Intravenous. TECHNIQUE: A post contrast CT study of the chest, abdomen and pelvis is performed after administration of intravenous contrast medium. The examination was performed with 5 mm thin slices. Technique for this CT scan was done using principles of ALARA (As Low As Reasonably Achievable). Multiplanar reconstructions were obtained. FINDINGS: CT CHEST: Lower neck and thyroid: Visualized thyroid gland is unremarkable with no obvious nodule noted. Lungs: Subpleural atelectatic areas and/or scarring in both lower pulmonary lobes posteriorly. Few ground-glass pulmonary nodules with sizes ranging from 2 mm to 7 mm scattered in both lungs, largest of approximate size 7 mm in the right lower pulmonary lobe. Advised follow-up CT at 3-6 months interval as per Fleischner Society guidelines. The rest of the pulmonary parenchyma does not show any significant abnormality. Pleural spaces are clear with no evidence of pleural effusion. Mediastinum, heart and great vessels: The trachea and the mainstem bronchi are normal. Few soft tissue density pretracheal, right paratracheal, aortopulmonary window and prevascular lymph nodes, largest of approximate size 17 x 9 mm. Cardiac size appears unremarkable. No evidence of aneurysmal dilatation of the ascending aorta. Calcific atherosclerotic aortic plaques and coronary arterial calcifications noted. Otherwise, the rest of the mediastinal vasculature is normal. No evidence of pericardial effusion. Circumferential long segment edematous wall thickening of the thoracic esophagus (thickness up to approximately 5.5 mm) with fluid and air-filled distended lumen (transverse luminal diameter up to approximately 19 mm), infective/inflammatory etiology, esophagitis. Periesophageal mediastinal fat stranding noted around the middle one third of the thoracic esophagus. Chest wall and axillae: Soft tissue density, subcentimetric bilateral axillary lymph nodes noted. Osseous structures: Sclerotic lesion of approximate size 9 mm in the T12 vertebral body, likely osteoma. Degenerative changes in the thoracolumbar vertebrae noted in the form of osteophytes in the visualized vertebral bodies. Ribs are unremarkable. CT ABDOMEN: Liver: The liver is normal in size with diffuse hepatic steatosis. The portal venous radicles are normal. There is no intrahepatic biliary radicle dilatation. Intrahepatic vascular calcifications noted. Gallbladder: The gallbladder is normal and reveals no intrinsic abnormality. The common bile duct is not dilated. Pancreas: The pancreas is normal in size and shape. No focal lesion is seen within. The peripancreatic fat planes are normal. Spleen: The spleen is normal in size and does not show any focal abnormality. Retroperitoneum: Both adrenal glands are normal in size and morphology. There is no significant retroperitoneal lymphadenopathy. The kidneys are normal in size with no hydronephrosis or renal calculi. Bosniak class I simple renal cortical cysts in both kidneys, largest of approximate size 12 mm at the mid pole of right kidney posteriorly for which no routine follow-up is required. Vessels: Scattered calcific atherosclerotic aorto-iliac plaques noted. Otherwise, IVC and the mesenteric vessels appear normal. Stomach and bowel: Small fat filled umbilical hernia. Fluid-filled, distended (diameter up to approximately 3.5 cm) jejunal and distal duodenal bowel loops, likely infective/inflammatory etiology, enteritis. Advised clinicopathological correlation. The rest of the small bowel loops are unremarkable. There is no ascites. Skeletal system: Sclerotic lesion of approximate size 9 mm in the T12 vertebral body, likely osteoma. Mild degenerative changes noted in thoracolumbar spine. The pelvic bones are unremarkable. CT PELVIS: Appendix: The appendix is unremarkable in appearance. Colon: The ascending, transverse, descending, sigmoid colon and rectum are unremarkable. Urinary bladder: The urinary bladder is unremarkable with prominent median umbilical ligament. Pelvic organs: The prostate is normal in size and unremarkable in appearance. No significant pelvic lymphadenopathy is identified. No abnormal fluid collection is seen. Calcified mesenteric granuloma of approximate size 18 x 10 mm noted in the right iliac fossa. IMPRESSION: 1. Circumferential long segment edematous wall thickening of the thoracic esophagus (thickness up to approximately 5.5 mm) with fluid and air-filled distended lumen (transverse luminal diameter up to approximately 19 mm), infective/inflammatory etiology, esophagitis. Periesophageal mediastinal fat stranding noted around the middle one third of the thoracic esophagus. 2. Fluid-filled, distended (diameter up to approximately 3.5 cm) jejunal and distal duodenal bowel loops, likely infective/inflammatory etiology, enteritis. Advised clinicopathological correlation. 3. Few ground-glass pulmonary nodules with sizes ranging from 2 mm to 7 mm scattered in both lungs, largest of approximate size 7 mm in the right lower pulmonary lobe. Advised follow-up CT at 3-6 months interval as per Fleischner Society guidelines. 4. No abdominal mass. 5. No ascites. 6. No free air. 7. Chronic and/or ancillary findings as described above. Pulmonary nodule follow-up protocol: As per the Fleischner Society Guidelines (2017). SOLID NODULES Single or Multiple nodules: Low-risk: No routine follow-up. High-risk: Optional CT at 12 months. 6-8 mm Single nodule: Low-risk: CT at 6-12 months, then consider CT at 18-24 months. High-risk: CT at 6-[address] at 18-24 months. Multiple nodules: Low-risk: CT at 3-[address] at 18-24 months. High-risk: CT at 3-6 months then at 18-24 months. Andgt; 8 mm Single nodule: Low-risk: Consider CT at 3 months, PET/CT, or tissue sampling. High-risk: Consider CT at 3 months, PET/CT, or tissue sampling. Multiple nodules: Low-risk: CT at 3-[address] at 18-24 months. High-risk: CT at 3-6 months then at 18-24 months. SUB-SOLID NODULES Single nodule: Ground-glass: No routine follow-up. Partly solid: No routine follow-up. Multiple nodules: CT at 3-6 months. If stable consider CT at 2 and 4 years. =/Andgt;6 mm Single nodule: Ground-glass: CT at 6-12 months to confirm persistence then CT every 2 years until 5 years. Partly solid: CT at 3-6 months to confirm persistence. If unchanged and solid component remains less than [address] should be performed for 5 years. Multiple nodules: CT at 3-6 months. Subsequent management based on the most suspicious nodule(s). Electronically Signed 03/06/2024 04:04 Manuel Bland ATED BY: BALDO GUEVARA MD DICTATED DATE/TIME: 03/06/24403 SIGNED BY: BALDO GUEVARA MD SIGNED DATE/TIME: 03/06/24403 CC: Time of 1ST Reevaluation: 01:10 Reevaluation 1ST: Unchanged Patient Education/Counseling: Diagnosis, Treatment Family Education/Counseling: No Family Present Departure 1 Departure Time of Disposition: 04:11 Impression: Primary Impression: Upper GI bleed Additional Impression: Hyponatremia Disposition: ADMITTED INPATIENT Condition: Stable Comments 68-year-old male with history of alcohol abuse on Eliquis for AFib with suspected upper GI bleed Protonix, octreotide initially in the emergency department. H and H and vital signs stable. CT showing possible esophagitis. Patient admitted for further treatment, evaluation and monitoring. Critical Care Note Critical Care Time?: No Stability Stability form required: No Heart Score Heart Score: Heart Score Response (Comments) Value History N/A 0 EKG N/A 0 Age N/A 0 Risk Factors N/A 0 Troponin N/A 0 Total 0 I personally scribed for MARGE HERNANDEZ MD ([email or web address]) on 03/06/24 at 01:50. Electronically submitted by Ramy Arboleda ([email or web address]). I personally scribed for MARGE HERNANDEZ MD ([email or web address]) on 03/06/24 at 04:19. Electronically submitted by Ramy Arboleda ([email or web address]). MARGE HERNANDEZ MD Mar 06, 2024 01:50
[2024-03-06] MEDS: ONDANSETRON HCL 4 MG/2 ML VIAL IV ONE (02:02)
[2024-03-06] MEDS: MORPHINE SULFATE INJ 2 MG/ml SYRG IV ONE ×2 (02:20→03:02)
[2024-03-06] MEDS: cefTRIAXone 1GM/50ML D5W 50 ML IV ONE (02:45)
[2024-03-06] MEDS: VANCOMYCIN 1GM/250ML KIT 250 ML IV ONE (03:07)
[2024-03-06] MEDS: METOCLOPRAMIDE HCL 5MG/ml INJ 2ml VIAL IV ONE (03:26)
[2024-03-06] MEDS: OCTREOTIDE ACETATE 100 MCG in SODIUM CHL 0.9% 50 ML IV ONE (03:58)
[2024-03-06] MEDS: OCTREOTIDE ACETATE 100 MCG/ML VL ONE (03:58)
--- NOTE | 2024-03-06 04:05 | DVH ---
Examination: CAPIV CLINICAL INDICATION: Hematemesis . COMPARISON: None. CONTRAST USED: Intravenous. TECHNIQUE: A post contrast CT study of the chest, abdomen and pelvis is performed after administrati on of intravenous contrast medium. The examination was performed with 5 mm thin slices. Technique f or this CT scan was done using principles of ALARA (As Low As Reasonably Achievable). Multiplanar re constructions were obtained. FINDINGS: CT CHEST: Lower neck and thyroid: Visualized thyroid gland is unremarkable with no obvious nodule noted. Lungs: Subpleural atelectatic areas and/or scarring in both lower pulmonary lobes posteriorly. Few ground-glass pulmonary nodules with sizes ranging from 2 mm to 7 mm scattered in both lungs, larg est of approximate size 7 mm in the right lower pulmonary lobe. Advised follow-up CT at 3-6 months i nterval as per Fleischner Society guidelines. The rest of the pulmonary parenchyma does not show any significant abnormality. Pleural spaces are clear with no evidence of pleural effusion. Mediastinum, heart and great vessels: The trachea and the mainstem bronchi are normal. Few soft tissue density pretracheal, right paratracheal, aortopulmonary window and prevascular lymph nodes, largest of approximate size 17 x 9 mm. Cardiac size appears unremarkable. No evidence of aneurysmal dilatation of the ascending aorta. Calcific atherosclerotic aortic plaques and coronary arterial calcifications noted. Otherwise, the r est of the mediastinal vasculature is normal. No evidence of pericardial effusion. Circumferential long segment edematous wall thickening of the thoracic esophagus (thickness up to sam roximately 5.5 mm) with fluid and air-filled distended lumen (transverse luminal diameter up to appro ximately 19 mm), infective/inflammatory etiology, esophagitis. Periesophageal mediastinal fat stranding noted around the middle one third of the thoracic esophagus. Chest wall and axillae: Soft tissue density, subcentimetric bilateral axillary lymph nodes noted. Osseous structures: Sclerotic lesion of approximate size 9 mm in the T12 vertebral body, likely oste carline. Degenerative changes in the thoracolumbar vertebrae noted in the form of osteophytes in the visualize d vertebral bodies. Ribs are unremarkable. CT ABDOMEN: Liver: The liver is normal in size with diffuse hepatic steatosis. The portal venous radicles are normal. There is no intrahepatic biliary radicle dilatation. Intrahepatic vascular calcifications noted. Gallbladder: The gallbladder is normal and reveals no intrinsic abnormality. The common bile duct is not dilated. Pancreas: The pancreas is normal in size and shape. No focal lesion is seen within. The peripancre atic fat planes are normal. Spleen: The spleen is normal in size and does not show any focal abnormality. Retroperitoneum: Both adrenal glands are normal in size and morphology. There is no significant retroperitoneal lymphadenopathy. The kidneys are normal in size with no hydronephrosis or renal calculi. Bosniak class I simple renal cortical cysts in both kidneys, largest of approximate size 12 mm at the mid pole of right kidney posteriorly for which no routine follow-up is required. Vessels: Scattered calcific atherosclerotic aorto-iliac plaques noted. Otherwise, IVC and the mesen teric vessels appear normal. Stomach and bowel: Small fat filled umbilical hernia. Fluid-filled, distended (diameter up to approximately 3.5 cm) jejunal and distal duodenal bowel loops , likely infective/inflammatory etiology, enteritis. Advised clinicopathological correlation. The rest of the small bowel loops are unremarkable. There is no ascites. Skeletal system: Sclerotic lesion of approximate size 9 mm in the T12 vertebral body, likely osteoma . Mild degenerative changes noted in thoracolumbar spine. The pelvic bones are unremarkable. CT PELVIS: Appendix: The appendix is unremarkable in appearance. Colon: The ascending, transverse, descending, sigmoid colon and rectum are unremarkable. Urinary bladder: The urinary bladder is unremarkable with prominent median umbilical ligament. Pelvic organs: The prostate is normal in size and unremarkable in appearance. No significant pelvic lymphadenopathy is identified. No abnormal fluid collection is seen. Calcified mesenteric granuloma of approximate size 18 x 10 mm noted in the right iliac fossa. IMPRESSION: 1. Circumferential long segment edematous wall thickening of the thoracic esophagus (thickness up to approximately 5.5 mm) with fluid and air-filled distended lumen (transverse luminal diameter up to a pproximately 19 mm), infective/inflammatory etiology, esophagitis. Periesophageal mediastinal fat st randing noted around the middle one third of the thoracic esophagus. 2. Fluid-filled, distended (diameter up to approximately 3.5 cm) jejunal and distal duodenal bowel l oops, likely infective/inflammatory etiology, enteritis. Advised clinicopathological correlation. 3. Few ground-glass pulmonary nodules with sizes ranging from 2 mm to 7 mm scattered in both lungs, largest of approximate size 7 mm in the right lower pulmonary lobe. Advised follow-up CT at 3-6 flor hs interval as per Fleischner Society guidelines. 4. No abdominal mass. 5. No ascites. 6. No free air. 7. Chronic and/or ancillary findings as described above. Pulmonary nodule follow-up protocol: As per the Fleischner Society Guidelines (2017). SOLID NODULES Single or Multiple nodules: Low-risk: No routine follow-up. High-risk: Optional CT at 12 months. 6-8 mm Single nodule: Low-risk: CT at 6-12 months, then consider CT at 18-24 months. High-risk: CT at 6-[address] at 18-24 months. Multiple nodules: Low-risk: CT at 3-[address] at 18-24 months. High-risk: CT at 3-6 months then at 18-24 months. Andgt; 8 mm Single nodule: Low-risk: Consider CT at 3 months, PET/CT, or tissue sampling. High-risk: Consider CT at 3 months, PET/CT, or tissue sampling. Multiple nodules: Low-risk: CT at 3-[address] at 18-24 months. High-risk: CT at 3-6 months then at 18-24 months. SUB-SOLID NODULES Single nodule: Ground-glass: No routine follow-up. Partly solid: No routine follow-up. Multiple nodules: CT at 3-6 months. If stable consider CT at 2 and 4 years. =/Andgt;6 mm Single nodule: Ground-glass: CT at 6-12 months to confirm persistence then CT every 2 years until 5 years. Partly solid: CT at 3-6 months to confirm persistence. If unchanged and solid component remains les s than [address] should be performed for 5 years. Multiple nodules: CT at 3-6 months. Subsequent management based on the most suspicious nodule(s). Electronically Signed 03/06/2024 04:04 Manuel Bland
--- NOTE | 2024-03-06 04:11 | ECG ---
[facility] Test Date: 2024-03-06 Test Time: 00:42:56 Pat Name: CRISTELA HODGSON Department: ED Room: 0286 Gender: M Co Founder And Director: CAROLANN : 1955 Requested By: EMERGENCY EMERGENCY Order Number: [id number] Reading MD: Antonio Aguero Measurements Intervals [place] Rate: 113 P: 6 AK: 161 QRS: 110 QRSD: 97 T: 67 QT: 313 QTc: 430 Interpretive Statements Sinus tachycardia Probable left atrial enlargement Anterolateral infarct, old Electronically Signed On 03-10-2024 15:27:07 PST by Antonio Aguero Please click the below link to view image of tracing.
[2024-03-06 05:19] LABS: Urine Bacteria None Seen /hpf (None Seen)
[2024-03-06 05:37] LABS: Urine Blood Negative /uL (Negative); Urine Clarity Clear (Clear); Urine Color Yellow (Yellow); Urine Mucus FEW (None Seen); Urine Protein, UAD TRACE (Negative); Urine Squamous Epithelial Cell FEW /hpf (<5); Urine Urobilinogen Normal (Negative); Urine WBC 1 /hpf (0 - 3); Urine pH 5.5 (5.0-9.0)
[2024-03-06] MEDS: SODIUM CHLORIDE 0.9% 1,000 ML IV ONE (05:42)
[2024-03-06] MEDS: OCTREOTIDE ACETATE 500 MCG in SODIUM CHL 0.9% 99 ML IV SCH (07:15)
[2024-03-06 08:00] VITALS: PULSE 113; RESP 20; O2SAT 97
[2024-03-06] MEDS ORDERED: ONDANSETRON HCL 4 MG/2 ML VIAL IV PRN (08:45)
[2024-03-06] MEDS ORDERED: THIAMINE 100mg/ml INJ (200mg/2ml VIAL) IV ONE (08:45)
[2024-03-06] MEDS ORDERED: SODIUM CHLORIDE 0.9% 1,000 ML IV SCH (08:45)
[2024-03-06] MEDS ORDERED: FOLIC ACID 1 MG in D5W 5% 50 ML INJ SCH (08:45)
[2024-03-06] MEDS ORDERED: VANCOMYCIN PER PHARMACY 0 MG IV SCH (09:00)
--- NOTE | 2024-03-06 09:05 | DVHHP2 ---
History of Present Illness Reason for Visit: Right upper quadrant abdominal pain History of Present Illness Delon Morris is a 68-year-old male with past medical history of CAD status post PCI greater than 6 years ago at [facility], hypertension, hyperlipidemia, AFib, ETOH abuse, anxiety, arthritis, and right lower extremity fracture in 2017 who presents to the ED today for right upper quadrant abdominal pain, nausea, and vomiting bright red blood x2 days. Patient reports that he drinks about 18 packs of beer a day and that he went to [facility] yesterday for the abdominal pain and they discharged him without any medications. Patient reports that he has not been taking his medications for the last five days. He also reports that he has not had an appetite for the last 3 weeks and has just been drinking. Patient denies any recent stressors. Patient also denies chest pain, shortness of breath, diarrhea, lightheadedness, fevers, chills, and dizziness. Cardiovascular: AFIB, CAD, HTN, hyperipidemia Psych: Anxiety Past Medical History Arthritis ETOH abuse Past Surgical History: Other Past Surgical History Right lower extremity fracture 2017 repair Family History: None Smoke: No ALCOHOL: none Drugs: None Lives: Alone Domestic Violence: Neg Review of Systems Constitutional: No: Fever, Chills, Sweats, Weakness, Malaise, Other Eyes: No: Pain, Vision change, Conjunctivae inflammation, Eyelid inflammation, Other, Redness ENT: No: Ear pain, Ear discharge, Nose pain, Nose discharge, Nose congestion, Mouth pain, Mouth swelling, Throat pain, Throat swelling, Other Respiratory: No: Cough, Dry, Shortness of breath, SOB with excertion, Wheezing, Hemoptysis, Pleuritic Pain, Sputum, Wheezing, Other Cardiovascular: No: Chest Pain, Palpitations, Orthopnea, Paroxysmal Noc. Dyspnea, Edema, Lt Headedness, Other Gastrointestinal: Nausea, Vomiting, Abdominal Pain, Other (Hematemesis); No: Diarrhea, Constipation, Melena, Hematochezia Genitourinary: No Dysuria, No Frequency, No Incontinence, No Hematuria, No R etention, No Other Musculoskeletal: No: other, neck pain, shoulder pain, arm pain, back pain, hand pain, leg pain, foot pain Skin: No: Rash, Lesions, Jaundice, Bruising, Other Neurological: No: Weakness, Numbness, Incoordination, Change in speech, Confusion, Seizures, Other Allergies: Coded Allergies: NO KNOWN ALLERGIES (Unverified , 11/03/21) Medications Current Medications Medications Dose Ordered Sig/Arthur Route Start Time Stop Time Status Last Admin Dose Admin Octreotide Acetate 500 mcg/ Sodium Chloride 100 ml @ 10 mls/hr Q10H IV 03/06/24 03:30 03/06/24 07:15 10 MLS/HR Exam Vital Signs Vital Signs Date Time Temp Pulse Resp B/P (MAP) Pulse Ox O2 Delivery O2 Flow Rate FiO2 03/06/24 08:10 110 03/06/24 08:00 98.4 20 135/94 (108) 97 98.4 03/06/24 08:00 Nasal Cannula* 2 28 General Appearance: Alert, Oriented X3, Cooperative, No acute distress HEENT: Atraumatic, PERRLA, EOMI, Mucous membr. moist/pink Respiratory: Clear to auscultation, Normal air movement Cardiovascular: Normal S1, Normal S2, No murmurs Extremities: No clubbing, No cyanosis, No edema, Normal pulses, No tenderness/swelling Skin: No rashes, No breakdown, No significant lesion Neuro: Normal gait, Normal speech, Strength at 5/5 X4 ext, Normal tone, Sensation intact Psych/Mental Status: Mental status NL, Mood NL Labs/Xrays Labs Test 03/06/24 05:00 03/06/24 03:07 03/06/24 01:05 Range/Units Urine Color Yellow Yellow Urine Clarity Clear Clear Urine pH 5.5 5.0-9.0 Urine Specific [place] 1.050 H 1.001-1.035 Urine Protein Trace H Negative Urine Ketones Trace Negative Urine Blood Negative Negative /uL Urine Nitrite Negative Negative Urine Bilirubin Negative Negative Urine Urobilinogen Normal Negative mg/dL Urine Leukocyte Esterase Negative Negative /uL Urine RBC 2 0 - 3 /hpf Urine WBC 1 0 - 3 /hpf Urine Squamous Epithelial Cells Few <5 /hpf Urine Bacteria None seen None Seen /hpf Urine Mucus Few None Seen Urine Glucose Normal Normal mg/dL Lactic Acid Level 1.7 0.4-2.0 mmol/L White Blood Count 18.0 H 4.4-10.8 10^3/uL Red Blood Count 5.51 4.5-5.90 10^6/uL Hemoglobin 15.4 13.5-17.5 g/dL Hematocrit 46.3 41.0-53.0 % Mean Corpuscular Volume 84.0 80.0-100.0 fL Mean Corpuscular Hemoglobin 27.9 L 28.0-32.0 pg Mean Corpuscular Hemoglobin Concent 33.2 32.0-36.0 g/dL Red Cell Distribution Width 17.2 H 11.8-14.3 % Platelet Count 355 140-450 10^3/uL Mean Platelet Volume 6.2 L 6.9-10.8 fL Neutrophils (%) (Auto) 89.7 H 37.0-80.0 % Lymphocytes (%) (Auto) 4.4 L 10.0-50.0 % Monocytes (%) (Auto) 5.4 0.0-12.0 % Eosinophils (%) (Auto) 0.3 0.0-7.0 % Basophils (%) (Auto) 0.2 0.0-2.0 % Neutrophils # (Auto) 16.1 H 1.6-8.6 10 ^3/uL Lymphocytes # (Auto) 0.8 0.4-5.4 10 ^3/uL Monocytes # (Auto) 1.0 0-1.3 10 ^3/uL Eosinophils # (Auto) 0.1 0-0.8 10 ^3/uL Basophils # (Auto) 0 0-0.2 10 ^3/uL Nucleated Red Blood Cells 0.0 % Prothrombin Time 11.1 9.3-11.8 sec Prothrombin Time INR 1.05 0.9-1.15 Sodium Level 119 *L 136-145 mmol/L Potassium Level 4.4 3.5-5.1 mmol/L Chloride Level 90 L 98-107 mmol/L Carbon Dioxide Level 20 20-31 mmol/L Anion Gap 9 5-15 Blood Urea Nitrogen 11 9-23 mg/dL Creatinine 1.21 0.700-1.30 mg/dL Glomerular Filtration Rate Calc 65 >90 mL/min BUN/Creatinine Ratio 9.1 L 10.0-20.0 Serum Glucose 154 H 74-106 mg/dL Calcium Level 10.1 8.7-10.4 mg/dL Total Bilirubin 0.9 0.2-1.0 mg/dL Aspartate Amino Transferase (AST) 58 H 13-40 U/L Alanine Aminotransferase (ALT) 45 H 7-40 U/L Alkaline Phosphatase 85 46-116 U/L Total Protein 7.7 5.7-8.2 g/dL Albumin 4.7 3.2-4.8 g/dL Lipase 39 12-53 U/L Plasma/Serum Blood Alcohol 3.4 <10 mg/dL Examination: CAPIV CLINICAL INDICATION: Hematemesis . COMPARISON: None. CONTRAST USED: Intravenous. TECHNIQUE: A post contrast CT study of the chest, abdomen and pelvis is performed after administration of intravenous contrast medium. The examination was performed with 5 mm thin slices. Technique for this CT scan was done using principles of ALARA (As Low As Reasonably Achievable). Multiplanar reconstructions were obtained. FINDINGS: CT CHEST: Lower neck and thyroid: Visualized thyroid gland is unremarkable with no obvious nodule noted. Lungs: Subpleural atelectatic areas and/or scarring in both lower pulmonary lobes posteriorly. Few ground-glass pulmonary nodules with sizes ranging from 2 mm to 7 mm scattered in both lungs, largest of approximate size 7 mm in the right lower pulmonary lobe. Advised follow-up CT at 3-6 months interval as per Fleischner Society guidelines. The rest of the pulmonary parenchyma does not show any significant abnormality. Pleural spaces are clear with no evidence of pleural effusion. Mediastinum, heart and great vessels: The trachea and the mainstem bronchi are normal. Few soft tissue density pretracheal, right paratracheal, aortopulmonary window and prevascular lymph nodes, largest of approximate size 17 x 9 mm. Cardiac size appears unremarkable. No evidence of aneurysmal dilatation of the ascending aorta. Calcific atherosclerotic aortic plaques and coronary arterial calcifications noted. Otherwise, the rest of the mediastinal vasculature is normal. No evidence of pericardial effusion. Circumferential long segment edematous wall thickening of the thoracic esophagus (thickness up to approximately 5.5 mm) with fluid and air-filled distended lumen (transverse luminal diameter up to approximately 19 mm), infective/inflammatory etiology, esophagitis. Periesophageal mediastinal fat stranding noted around the middle one third of the thoracic esophagus. Chest wall and axillae: Soft tissue density, subcentimetric bilateral axillary lymph nodes noted. Osseous structures: Sclerotic lesion of approximate size 9 mm in the T12 vertebral body, likely osteoma. Degenerative changes in the thoracolumbar vertebrae noted in the form of osteophytes in the visualized vertebral bodies. Ribs are unremarkable. CT ABDOMEN: Liver: The liver is normal in size with diffuse hepatic steatosis. The portal venous radicles are normal. There is no intrahepatic biliary radicle dilatation. Intrahepatic vascular calcifications noted. Gallbladder: The gallbladder is normal and reveals no intrinsic abnormality. The common bile duct is not dilated. Pancreas: The pancreas is normal in size and shape. No focal lesion is seen within. The peripancreatic fat planes are normal. Spleen: The spleen is normal in size and does not show any focal abnormality. Retroperitoneum: Both adrenal glands are normal in size and morphology. There is no significant retroperitoneal lymphadenopathy. The kidneys are normal in size with no hydronephrosis or renal calculi. Bosniak class I simple renal cortical cysts in both kidneys, largest of approximate size 12 mm at the mid pole of right kidney posteriorly for which no routine follow-up is required. Vessels: Scattered calcific atherosclerotic aorto-iliac plaques noted. Otherwise, IVC and the mesenteric vessels appear normal. Stomach and bowel: Small fat filled umbilical hernia. Fluid-filled, distended (diameter up to approximately 3.5 cm) jejunal and distal duodenal bowel loops, likely infective/inflammatory etiology, enteritis. Advised clinicopathological correlation. The rest of the small bowel loops are unremarkable. There is no ascites. Skeletal system: Sclerotic lesion of approximate size 9 mm in the T12 vertebral body, likely osteoma. Mild degenerative changes noted in thoracolumbar spine. The pelvic bones are unremarkable. CT PELVIS: Appendix: The appendix is unremarkable in appearance. Colon: The ascending, transverse, descending, sigmoid colon and rectum are unr emarkable. Urinary bladder: The urinary bladder is unremarkable with prominent median umbilical ligament. Pelvic organs: The prostate is normal in size and unremarkable in appearance. No significant pelvic lymphadenopathy is identified. No abnormal fluid collection is seen. Calcified mesenteric granuloma of approximate size 18 x 10 mm noted in the right iliac fossa. IMPRESSION: 1. Circumferential long segment edematous wall thickening of the thoracic esophagus (thickness up to approximately 5.5 mm) with fluid and air-filled distended lumen (transverse luminal diameter up to approximately 19 mm), infective/inflammatory etiology, esophagitis. Periesophageal mediastinal fat stranding noted around the middle one third of the thoracic esophagus. 2. Fluid-filled, distended (diameter up to approximately 3.5 cm) jejunal and distal duodenal bowel loops, likely infective/inflammatory etiology, enteritis. Advised clinicopathological correlation. 3. Few ground-glass pulmonary nodules with sizes ranging from 2 mm to 7 mm scattered in both lungs, largest of approximate size 7 mm in the right lower pulmonary lobe. Advised follow-up CT at 3-6 months interval as per Fleischner Society guidelines. 4. No abdominal mass. 5. No ascites. 6. No free air. 7. Chronic and/or ancillary findings as described above. Assessment/Plan Assessment/Plan Assessment/Plan: Intractable abdominal pain rule out GI bleed due to ETOH abuse Leukocytosis likely d/t esophagitis and enteritis Hyponatremia Hypochloremia Elevated AST Elevated ALT Lactic acidosis suspecting sepsis CT abdomen pelvis IV antibiotics -vancomycin and ceftriaxone Protonix given ED Antiemetics Octreotide drip UA CT NS Antiemetics Pain management Blood alcohol noted PT/INR Lipase Lactic Stool occult GI consult CIWA Thiamine Folic acid P.r.n. Ativan Mag level Drug screen Albumin Pneumonia TSH Hepatitis panel Amylase Troponin Hyperglycemia Hemoglobin A1c ISS and Accu-Cheks Few ground-glass pulmonary nodules with sizes ranging from 2 mm to 7 mm scattered in both lungs, largest of approximate size 7 mm in the right lower pulmonary lobe. Follow up outpatient with PCP History of AFib History of CAD Continue home meds Chronic hypertension Continue home meds Chronic hyperlipidemia Continue home meds MELD Score 9 points 1.9% Estimated 3-month mortality ETOH abuse CIWA protocol Counseled patient on alcohol cessation FEN/PPX IVf NPO PUD ppx - protonix DVT ppx - thrombocytopenic and patient ambulating Admit to ION Home medications reconciled Discussed plan of care with patient and nurse Plan discussed with: Patient Date of Service: Mar 06, 2024 Billing Provider: ANGIE LUNDBERG Common Visit Codes: [id number] INP/OBS CARE (HIGH) ANGIE LUNDBERG Mar 06, 2024 09:05
[2024-03-06 09:29] LABS: Benzodiazephine Screen, Urine Pos (NEGATIVE)
[2024-03-06] MEDS: cefTRIAXone 1GM/50ML D5W 50 ML IV SCH (09:34)
[2024-03-06] MEDS: LORazepam 2MG/ML-1ML VIAL IV ONE (09:34)
[2024-03-06] MEDS: LORazepam 2MG/ML-1ML VIAL IV SCH (09:35)
[2024-03-06 09:39] LABS: Opiate Scree,Urine Pos (NEGATIVE)
[2024-03-06 09:40] LABS: Amphetamine Screen, Urine Neg (NEGATIVE); Barbiturate Scree,Urine Neg (NEGATIVE); Cannabinoid Screen, Urine Neg (NEGATIVE); Cocaine Screen, Urine Neg (NEGATIVE); Phencyclidine Screen, Urine Neg (NEGATIVE)
[2024-03-06] MEDS: THIAMINE 100mg/ml INJ (200mg/2ml VIAL) IV SCH (10:24)
[2024-03-06] MEDS: FOLIC ACID 1 MG in D5W 5% 50 ML INJ SCH (10:27)
[2024-03-06 11:00] LABS: Albumin 4.1 g/dL (3.2-4.8)
[2024-03-06] MEDS: VANCOMYCIN 1.25GM/250ML 250 ML IV SCH (15:14)
[2024-03-06] MEDS: KETOROLAC TROMETH 30 MG/ML 1ML VIAL IV ONE (17:04)
[2024-03-06] MEDS: LORazepam 2MG/ML-1ML VIAL IV PRN (20:02)
[2024-03-06] MEDS: HYDROcodone-ACET 7.5/325MG TAB PO ONE (20:02)
[2024-03-07] VITALS (8 sets, daily range): BP systolic 100–155; BP diastolic 63–90; PULSE 59–121; RESP 17–21; TEMP 98.4–101.7; O2SAT 91–97
[2024-03-07] MEDS: ACETAMINOPHEN 325 MG TAB PO ONE (04:02)
[2024-03-07 07:46] LABS: Basophils # (auto) 0 10 ^3/uL (0-0.2); Basophils % (auto) 0.4 % (0.0-2.0); Eosinophils # (auto) 0.1 10 ^3/uL (0-0.8); Eosinophils % (auto) 1.5 % (0.0-7.0); Hematocrit 39.1 % (41.0-53.0); Hemoglobin 12.7 g/dL (13.5-17.5); Lymphocytes # (auto) 1.2 10 ^3/uL (0.4-5.4); Lymphocytes % (auto) 12.1 % (10.0-50.0); Mean Corpuscular Hemoglobin 27.8 pg (28.0-32.0); Mean Corpuscular Hgb Conc. 32.5 g/dL (32.0-36.0); Mean Corpuscular Volume 85.6 fL (80.0-100.0); Monocytes # (auto) 0.9 10 ^3/uL (0-1.3); Monocytes % (auto) 9.6 % (0.0-12.0); Neutrophils # (auto) 7.4 10 ^3/uL (1.6-8.6); Neutrophils % (auto) 76.4 % (37.0-80.0); Platelet Count (auto) 312 10^3/uL (140-450); Red Blood Cells 4.57 10^6/uL (4.5-5.90); Red Cell Distribution Width 17.3 % (11.8-14.3); White Blood Cell 9.7 10^3/uL (4.4-10.8)
[2024-03-07 08:08] LABS: Alanine Aminotransferase 27 U/L (7-40); Albumin 3.8 g/dL (3.2-4.8); Alkaline Phosphatase 69 U/L (46-116); Anion Gap 7 (5-15); Aspartate Aminotransferase 38 U/L (13-40); BUN/Creatinine Ratio 13.4 (10.0-20.0); Bilirubin, Total 0.6 mg/dL (0.2-1.0); Blood Urea Nitrogen 15 mg/dL (9-23); Calcium 8.9 mg/dL (8.7-10.4); Carbon Dioxide 20 mmol/L (20-31); Chloride 99 mmol/L (98-107); Potassium 4.6 mmol/L (3.5-5.1); Sodium 126 mmol/L (136-145); Total Protein 6.2 g/dL (5.7-8.2)
[2024-03-07 08:09] LABS: Glucose 119 mg/dL (74-106)
[2024-03-07 13:50] LABS: Hepatitis A Ab IgM Negative; Hepatitis B Core IgM Negative (Negative); Hepatitis B Surface Antigen Negative (Negative); Hepatitis C Antibody Negative (Negative)
--- NOTE | 2024-03-07 17:08 | DVHPN2 ---
Subjective Patient denies having any nausea or vomiting today. Reviewed: Care Plan, H&P, Labs, Medications, Previous Orders Changes from previous H/P or p: No Changes General: Per HPI Eyes: No Pain, No Vision change, No Conjunctivae inflammation, No Eyelid inflammation, No Other, No Redness ENT: No Ear pain, No Ear discharge, No Nose pain, No Nose discharge, No Nose congestion, No Mouth pain, No Mouth swelling, No Throat pain, No Throat swelling, No Other Cardiovascular: No Chest Pain, No Palpitations, No Orthopnea, No Paroxysmal Noc. Dyspnea, No Edema, No Lt Headedness, No Other Respiratory: No Cough, No Dry, No Shortness of breath, No SOB with excertion, No Wheezing, No Hemoptysis, No Pleuritic Pain, No Sputum, No Other Gastrointestinal: Nausea, Vomiting, Abdominal Pain; No Diarrhea, No Constipation, No Melena, No Hematochezia; Other (Hematemesis) Genitourinary: No Dysuria, No Frequency, No Incontinence, No Hematuria, No Retention, No Other Musculoskeletal: No other, No neck pain, No shoulder pain, No arm pain, No back pain, No hand pain, No leg pain, No foot pain Skin: No Rash, No Lesions, No Jaundice, No Bruising, No Other Objective Vitals Vital Signs Date Time Temp Pulse Resp B/P (MAP) Pulse Ox O2 Delivery O2 Flow Rate FiO2 03/07/24 13:00 99.0 82 21 100/67 (78) 96 99.0 03/07/24 08:05 Nasal Cannula* 4 36 Intake/Output Intake and Output 03/07/24 07:00 Intake Total 350.2 ml Balance 350.2 ml Intake Oral 0 ml IV Total 350.2 ml General Appearance: Alert, Oriented X3, Cooperative, No acute distress HEENT: Atraumatic, PERRLA Cardiovascular: Normal S1, Normal S2 Abdomen: Normal bowel sounds, Soft, No tenderness Musculoskeletal: Normal sensory function, Normal motor function Skin: Dry, Intact Psych/Mental Status: Mental status NL, Mood NL Medications Current Medications Medications Dose Ordered Sig/Arthur Route Start Time Stop Time Status Last Admin Dose Admin Octreotide Acetate 500 mcg/ Sodium Chloride 100 ml @ 10 mls/hr Q10H IV 03/06/24 03:30 03/07/24 09:30 10 MLS/HR Ondansetron HCl 4 mg Q4HP PRN IV 03/06/24 08:45 Thiamine HCl 100 mg DAILY IV 03/06/24 10:00 03/07/24 11:08 100 MG Ceftriaxone Sodium 50 ml @ 100 mls/hr DAILY@09 IV 03/06/24 09:00 03/07/24 08:55 100 MLS/HR Folic Acid 1 mg/ Dextrose 50.2 ml @ 200 mls/hr DAILY INJ 03/06/24 10:00 03/07/24 11:08 200 MLS/HR Chlordiazepoxide HCl 10 mg QID PO 03/07/24 18:00 Erythromycin 250 mg Q8HR PO 03/07/24 22:00 Lorazepam 1 mg Q4HP PRN IV 03/07/24 17:00 UNV Laboratory Results Laboratory Tests 03/07/24 07:15 Chemistry Test 03/07/24 07:15 Albumin 3.8 g/dL (3.2-4.8) Calcium Level 8.9 mg/dL (8.7-10.4) Total Protein 6.2 g/dL (5.7-8.2) LFT Test 03/07/24 07:15 Alanine Aminotransferase (ALT) 27 U/L (7-40) Alkaline Phosphatase 69 U/L (46-116) Aspartate Amino Transferase (AST) 38 U/L (13-40) Total Bilirubin 0.6 mg/dL (0.2-1.0) Urinalysis Test 03/06/24 05:00 Urine Color Yellow (Yellow) Urine Clarity Clear (Clear) Urine pH 5.5 (5.0-9.0) Urine Specific [place] 1.050 (1.001-1.035) Urine Protein Trace (Negative) H Urine Ketones Trace (Negative) Urine Blood Negative /uL (Negative) Urine Nitrite Negative (Negative) Urine Bilirubin Negative (Negative) Urine Urobilinogen Normal mg/dL (Negative) Urine Leukocyte Esterase Negative /uL (Negative) Urine RBC 2 /hpf (0 - 3) Urine WBC 1 /hpf (0 - 3) Urine Squamous Epithelial Cells Few /hpf (<5) Urine Bacteria None seen /hpf (None Seen) Urine Mucus Few (None Seen) Urine Glucose Normal mg/dL (Normal) Labs and/or images reviewed: Labs reviewed by me, Image(s) reviewed by me Assessment/Plan Assessment/Plan Impression: -rule out GI bleed -alcoholism -anxiety disorder -coronary artery disease with previous intervention -obesity -early alcohol withdrawal symptoms Plan: -MVI, thiamine daily -Librium q.6 hours with IV Ativan for breakthrough symptoms -GI consultation -continue Sandostatin -Protonix -start clear liquid diet -stool for occult blood -repeat labs in a.m. Total time spent with patient discussing and formulating plan of care: 35 minutes. This medical document was created using an electronic medical record system with [employer] dictation system. Although this document has been carefully reviewed, there may still be some phonetic and typographical errors. These areas are purely typographical due to imperfections of the software programs, and do not reflect any compromise in the patient's medical care. Plan discussed with: Patient, Other (RN) My Orders Orders - ZAIDA GOMEZ NP Procedure Category Date Status Time * Gi Dvh [employer] CONS 03/07/24 Transmitted 15:09 Clear Liq Diet DIET 03/07/24 Transmitted Dinner Chlordiazepoxide Hcl PHA 03/07/24 In Process Capsule (Librium Ca 18:00 Erythromycin Tablet PHA 03/07/24 In Process 22:00 Stool Occult Blood LAB 03/07/24 Logged 15:11 Discontinue Tele JIL 03/07/24 In Process 15:48 Transfer Orders XFER 03/07/24 Transmitted 15:48 Lorazepam 2mg/Ml Inj PHA 03/07/24 Logged (Ativan Inj) 17:00 Complete Blood Count LAB 03/08/24 Verified 04:00 Date of Service: Mar 07, 2024 Billing Provider: ZAIDA GOMEZ NP Common Visit Codes: [id number] INP/OBS CARE(HIGH) ZAIDA GOMEZ NP Mar 07, 2024 17:08
[2024-03-07] MEDS: chlordiazePOXIDE HCL 5 MG CAP PO SCH (18:46)
--- NOTE | 2024-03-07 21:59 | DVHINCON2 ---
Date of service: Mar 07, 2024 Referring Physician ANTONI GOMEZ Reason for Consultation RUQ PAIN N/V/UGI BLEED History of Present Illness Delon Morris is a 68-year-old male with past medical history of CAD status post PCI greater than 6 years ago at [facility], hypertension, hyperli pidemia, AFib, ETOH abuse, anxiety, arthritis, and right lower extremity fracture in 2017 who presents to the ED today for right upper quadrant abdominal pain, nausea, and vomiting bright red blood x2 days. Patient reports that he drinks about 18 packs of beer a day and that he went to [facility] yesterday for the abdominal pain and they discharged him without any medications. Patient reports that he has not been taking his medications for the last five days. He also reports that he has not had an appetite for the last 3 weeks and has just been drinking. Patient denies any recent stressors. Patient also denies chest pain, shortness of breath, diarrhea, lightheadedness, fevers, chills, and dizziness. Past Medical History Cardiovascular: AFIB, CAD, HTN, hyperipidemia Psych: Anxiety Past Medical History Arthritis ETOH abuse Past Surgical History Past Surgical History Right lower extremity fracture 2017 repair Family History: Cerebrovascular accident (CVA) G8 MOTHER FH: lung cancer G8 FATHER Allergies: Coded Allergies: NO KNOWN ALLERGIES (Unverified , 11/03/21) Home Meds Active Scripts Gabapentin (Gabapentin) 100 Mg Cap, 3 CAP PO TID, #63 CAP Take 3 tablets (300mg) by mouth three times daily for 7 days then continue home dose of 100mg po TID. Prov:LUCILLE RICHARDS MD 12/02/23 Hydroxyzine Pamoate (Vistaril) 25 Mg Cap, 1 CAP PO TID, #90 CAP 1 Refill Prov:CHENCHO BONILLA MD 12/04/22 Losartan Potassium (Losartan Potassium) 25 Mg Tab, 25 MG PO DAILY, #30 TAB Prov:LUCILLE RICHARDS MD 05/27/22 Apixaban Base (ELIQUIS) 5 Mg Tab, 5 MG PO BID, #60 TAB Prov:LUCILLE RICHARDS MD 05/27/22 Metoprolol Succinate (Metoprolol Succinate Er) 25 Mg Tab, 25 MG PO DAILY, #60 TAB Prov:LUCILLE RICHARDS MD 05/27/22 Thiamine Hcl (Thiamine Hcl) 100 Mg Tab, 100 MG PO DAILY, #30 TAB Prov:LUCILLE RICHARDS MD 05/27/22 Folic Acid (Folic Acid) 1 Mg Tab, 1 TAB PO DAILY, #30 TAB Prov:LUCILLE RICHARDS MD 05/27/22 Reported Medications Cholecalciferol (D3 SUPER STRENGTH) 2,000 Unit Cap, 1 CAP PO DAILY 05/27/22 Prednisone (Prednisone) 5 Mg Tab, 1 TAB PO BID 05/27/22 Quetiapine Fumerate (QUETIAPINE FUMARATE) 100 Mg Tab, 1 TAB PO 05/27/22 Escitalopram Oxalate (ESCITALOPRAM OXALATE) 10 Mg Tab, 1 TAB PO DAILY 05/27/22 Current Medications Current Medications Medications (Trade) Dose Ordered Sig/Arthur Route PRN Reason Start Time Stop Time Status Last Admin Chlordiazepoxide HCl (Librium Capsule) 10 mg QID PO 03/07/24 18:00 03/07/24 18:46 Erythromycin 250 mg Q8HR PO 03/07/24 22:00 Lorazepam (Ativan Inj) 1 mg Q4HP PRN IV ANXIETY 03/07/24 17:00 Vital Signs Vital Signs Date Time Temp Pulse Resp B/P (MAP) Pulse Ox O2 Delivery O2 Flow Rate FiO2 03/07/24 20:56 98.4 84 20 116/68 (84) 97 98.4 03/07/24 08:05 Nasal Cannula* 4 36 Physical Exam General Appearance: Alert, Oriented X3, Cooperative, No acute distress HEENT: Atraumatic, PERRLA Cardiovascular: Normal S1, Normal S2 Abdomen: Normal bowel sounds, Soft, No tenderness Musculoskeletal: Normal sensory function, Normal motor function Skin: Dry, Intact Psych/Mental Status: Mental status NL, Mood NL Labs/Diagnostic Data Labs Test 03/07/24 14:09 03/07/24 07:15 03/06/24 13:54 03/06/24 10:23 Range/Units Vancomycin Level Trough 15.3 H 5-10 ug/mL White Blood Count 9.7 # 4.4-10.8 10^3/uL Red Blood Count 4.57 4.5-5.90 10^6/uL Hemoglobin 12.7 #L 13.5-17.5 g/dL Hematocrit 39.1 #L 41.0-53.0 % Mean Corpuscular Volume 85.6 80.0-100.0 fL Mean Corpuscular Hemoglobin 27.8 L 28.0-32.0 pg Mean Corpuscular Hemoglobin Concent 32.5 32.0-36.0 g/dL Red Cell Distribution Width 17.3 H 11.8-14.3 % Platelet Count 312 140-450 10^3/uL Mean Platelet Volume 6.2 L 6.9-10.8 fL Neutrophils (%) (Auto) 76.4 37.0-80.0 % Lymphocytes (%) (Auto) 12.1 10.0-50.0 % Monocytes (%) (Auto) 9.6 0.0-12.0 % Eosinophils (%) (Auto) 1.5 0.0-7.0 % Basophils (%) (Auto) 0.4 0.0-2.0 % Neutrophils # (Auto) 7.4 1.6-8.6 10 ^3/uL Lymphocytes # (Auto) 1.2 0.4-5.4 10 ^3/uL Monocytes # (Auto) 0.9 0-1.3 10 ^3/uL Eosinophils # (Auto) 0.1 0-0.8 10 ^3/uL Basophils # (Auto) 0 0-0.2 10 ^3/uL Nucleated Red Blood Cells 0.0 % Sodium Level 126 #L 136-145 mmol/L Potassium Level 4.6 3.5-5.1 mmol/L Chloride Level 99 98-107 mmol/L Carbon Dioxide Level 20 20-31 mmol/L Anion Gap 7 5-15 Blood Urea Nitrogen 15 9-23 mg/dL Creatinine 1.12 0.700-1.30 mg/dL Glomerular Filtration Rate Calc 71 >90 mL/min BUN/Creatinine Ratio 13.4 10.0-20.0 Serum Glucose 119 H 74-106 mg/dL Calcium Level 8.9 8.7-10.4 mg/dL Total Bilirubin 0.6 0.2-1.0 mg/dL Aspartate Amino Transferase (AST) 38 13-40 U/L Alanine Aminotransferase (ALT) 27 7-40 U/L Alkaline Phosphatase 69 46-116 U/L Total Protein 6.2 5.7-8.2 g/dL Albumin 3.8 3.2-4.8 g/dL Troponin I High Sensitivity 6 </=54 ng/L Magnesium Level 2.2 1.6-2.6 mg/dL Ammonia 21 11-32 umol/L Amylase Level 90 30-118 U/L Thyroid Stimulating Hormone (TSH) 0.22 L 0.55-4.78 uIU/mL Hepatitis A IgM Antibody Negative Hepatitis B Surface Antigen Negative Negative Hepatitis B Core IgM Antibody Negative Negative Hepatitis C Antibody Negative Negative Test 03/06/24 05:00 03/06/24 03:07 03/06/24 01:05 Range/Units Urine Color Yellow Yellow Urine Clarity Clear Clear Urine pH 5.5 5.0-9.0 Urine Specific [place] 1.050 H 1.001-1.035 Urine Protein Trace H Negative Urine Ketones Trace Negative Urine Blood Negative Negative /uL Urine Nitrite Negative Negative Urine Bilirubin Negative Negative Urine Urobilinogen Normal Negative mg/dL Urine Leukocyte Esterase Negative Negative /uL Urine RBC 2 0 - 3 /hpf Urine WBC 1 0 - 3 /hpf Urine Squamous Epithelial Cells Few <5 /hpf Urine Bacteria None seen None Seen /hpf Urine Mucus Few None Seen Urine Glucose Normal Normal mg/dL Urine Opiates Screen Pos NEGATIVE Urine Fentanyl Screen Neg NEGATIVE Urine Barbiturates Screen Neg NEGATIVE Urine Phencyclidine Screen Neg NEGATIVE Urine Amphetamines Screen Neg NEGATIVE Urine Benzodiazepines Screen Pos NEGATIVE Urine Cocaine Screen Neg NEGATIVE Urine Cannabinoids Screen Neg NEGATIVE Lactic Acid Level 1.7 0.4-2.0 mmol/L Prothrombin Time 11.1 9.3-11.8 sec Prothrombin Time INR 1.05 0.9-1.15 Lipase 39 12-53 U/L Plasma/Serum Blood Alcohol 3.4 <10 mg/dL CT CHEST ABD PELVIS IMPRESSION: 1. Circumferential long segment edematous wall thickening of the thoracic esophagus (thickness up to approximately 5.5 mm) with fluid and air-filled distended lumen (transverse luminal diameter up to approximately 19 mm), infective/inflammatory etiology, esophagitis. Periesophageal mediastinal fat stranding noted around the middle one third of the thoracic esophagus. 2. Fluid-filled, distended (diameter up to approximately 3.5 cm) jejunal and distal duodenal bowel loops, likely infective/inflammatory etiology, enteritis. Advised clinicopathological correlation. 3. Few ground-glass pulmonary nodules with sizes ranging from 2 mm to 7 mm scattered in both lungs, largest of approximate size 7 mm in the right lower pulmonary lobe. Advised follow-up CT at 3-6 months interval as per Fleischner Society guidelines. 4. No abdominal mass. 5. No ascites. 6. No free air. 7. Chronic and/or ancillary findings as described above. Problems(with codes): (1) Abnormal finding on GI tract imaging (2) Upper GI bleed (3) Alcohol withdrawal (4) Esophagitis Plan/Recommendation Plan Protonix 40 mg IV q.12 hours Carafate 1 g p.o. 4 times a day NPO after midnight I will evaluate the patient in a.m. for possible endoscopy Monitor serial labs Plan discussed with: Other NOLAN GALINDO MD Mar 07, 2024 21:59
[2024-03-07] MEDS: MORPHINE SULFATE INJ 2 MG/ml SYRG IV ONE (22:45)
[2024-03-08] VITALS (8 sets, daily range): BP systolic 112–138; BP diastolic 61–93; PULSE 84–112; RESP 16–20; TEMP 97.6–98.8; O2SAT 95–100
[2024-03-08] MEDS: SUCRALFATE 1 GM/10 ML ORAL SUSP PO SCH (05:13)
[2024-03-08 06:19] LABS: Basophils # (auto) 0 10 ^3/uL (0-0.2); Basophils % (auto) 0.5 % (0.0-2.0); Eosinophils # (auto) 0.3 10 ^3/uL (0-0.8); Eosinophils % (auto) 3.4 % (0.0-7.0); Hematocrit 37.1 % (41.0-53.0); Hemoglobin 12.3 g/dL (13.5-17.5); Lymphocytes # (auto) 1.4 10 ^3/uL (0.4-5.4); Lymphocytes % (auto) 17.9 % (10.0-50.0); Mean Corpuscular Hgb Conc. 33.1 g/dL (32.0-36.0); Mean Corpuscular Volume 84.5 fL (80.0-100.0); Monocytes % (auto) 12.8 % (0.0-12.0); Neutrophils % (auto) 65.4 % (37.0-80.0); Nucleated Red Blood Cells % 0.1 %; Platelet Count (auto) 313 10^3/uL (140-450); Red Blood Cells 4.39 10^6/uL (4.5-5.90); Red Cell Distribution Width 17.2 % (11.8-14.3); White Blood Cell 7.7 10^3/uL (4.4-10.8)
[2024-03-08] MEDS: PANTOPRAZOLE 40 MG/10 ML VIAL INJ IV SCH (09:13)
--- NOTE | 2024-03-08 10:41 | DVHPN2 ---
Subjective Patient denies having any nausea or vomiting today. Reviewed: Care Plan, H&P, Labs, Medications, Previous Orders Changes from previous H/P or p: No Changes General: Per HPI Eyes: No Pain, No Vision change, No Conjunctivae inflammation, No Eyelid inflammation, No Other, No Redness ENT: No Ear pain, No Ear discharge, No Nose pain, No Nose discharge, No Nose congestion, No Mouth pain, No Mouth swelling, No Throat pain, No Throat swelling, No Other Cardiovascular: No Chest Pain, No Palpitations, No Orthopnea, No Paroxysmal Noc. Dyspnea, No Edema, No Lt Headedness, No Other Respiratory: No Cough, No Dry, No Shortness of breath, No SOB with excertion, No Wheezing, No Hemoptysis, No Pleuritic Pain, No Sputum, No Other Gastrointestinal: Nausea, Vomiting, Abdominal Pain; No Diarrhea, No Constipation, No Melena, No Hematochezia; Other (Hematemesis) Genitourinary: No Dysuria, No Frequency, No Incontinence, No Hematuria, No Retention, No Other Musculoskeletal: No other, No neck pain, No shoulder pain, No arm pain, No back pain, No hand pain, No leg pain, No foot pain Skin: No Rash, No Lesions, No Jaundice, No Bruising, No Other Objective Vitals Vital Signs Date Time Temp Pulse Resp B/P (MAP) Pulse Ox O2 Delivery O2 Flow Rate FiO2 03/08/24 09:00 98.2 112 20 121/93 (102) 98 98.2 03/07/24 20:00 Nasal Cannula* 4 36 Intake/Output Intake and Output 03/08/24 07:00 Intake Total 1668.2 ml Balance 1668.2 ml Intake Oral 1020 ml IV Total 648.2 ml # Voids 5 General Appearance: Alert, Oriented X3, Cooperative, No acute distress HEENT: Atraumatic, PERRLA Cardiovascular: Normal S1, Normal S2 Abdomen: Normal bowel sounds, Soft, No tenderness Musculoskeletal: Normal sensory function, Normal motor function Skin: Dry, Intact Psych/Mental Status: Mental status NL, Mood NL Medications Current Medications Medications Dose Ordered Sig/Arthur Route Start Time Stop Time Status Last Admin Dose Admin Octreotide Acetate 500 mcg/ Sodium Chloride 100 ml @ 10 mls/hr Q10H IV 03/06/24 03:30 03/08/24 05:12 10 MLS/HR Ondansetron HCl 4 mg Q4HP PRN IV 03/06/24 08:45 Thiamine HCl 100 mg DAILY IV 03/06/24 10:00 03/08/24 09:13 100 MG Ceftriaxone Sodium 50 ml @ 100 mls/hr DAILY@09 IV 03/06/24 09:00 03/08/24 09:13 100 MLS/HR Folic Acid 1 mg/ Dextrose 50.2 ml @ 200 mls/hr DAILY INJ 03/06/24 10:00 03/07/24 11:08 200 MLS/HR Chlordiazepoxide HCl 10 mg QID PO 03/07/24 18:00 03/07/24 22:55 10 MG Erythromycin 250 mg Q8HR PO 03/07/24 22:00 Lorazepam 1 mg Q4HP PRN IV 03/07/24 17:00 Pantoprazole Sodium 40 mg BID IV 03/08/24 10:00 03/08/24 09:13 40 MG Sucralfate 1 gm QID@0600,1130,1700,2200 PO 03/08/24 06:00 Laboratory Results Laboratory Tests 03/07/24 07:15 03/08/24 05:15 Urinalysis Test 03/06/24 05:00 Urine Color Yellow (Yellow) Urine Clarity Clear (Clear) Urine pH 5.5 (5.0-9.0) Urine Specific [place] 1.050 (1.001-1.035) Urine Protein Trace (Negative) H Urine Ketones Trace (Negative) Urine Blood Negative /uL (Negative) Urine Nitrite Negative (Negative) Urine Bilirubin Negative (Negative) Urine Urobilinogen Normal mg/dL (Negative) Urine Leukocyte Esterase Negative /uL (Negative) Urine RBC 2 /hpf (0 - 3) Urine WBC 1 /hpf (0 - 3) Urine Squamous Epithelial Cells Few /hpf (<5) Urine Bacteria None seen /hpf (None Seen) Urine Mucus Few (None Seen) Urine Glucose Normal mg/dL (Normal) Labs and/or images reviewed: Labs reviewed by me, Image(s) reviewed by me Assessment/Plan Assessment/Plan Impression: -rule out GI bleed -alcoholism -anxiety disorder -coronary artery disease with previous intervention -obesity -early alcohol withdrawal symptoms Plan: Events: Recommendations by Gastroenterology reviewed. Possible EGD today. No signs of withdrawal symptoms today. Denies hematemesis -MVI, thiamine daily -Librium q.6 hours with IV Ativan for breakthrough symptoms -GI consultation : Questionable EGD -continue Sandostatin, discontinue after EGD per Gastroenterology -Protonix -patient was NPO, advance diet per Gastroenterology -stool for occult blood : Pending -repeat labs in a.m. Total time spent with patient discussing and formulating plan of care: 35 minutes. This medical document was created using an electronic medical record system with [employer] dictation system. Although this document has been carefully reviewed, there may still be some phonetic and typographical errors. These areas are purely typographical due to imperfections of the software programs, and do not reflect any compromise in the patient's medical care. Plan discussed with: Patient, Other (RN) My Orders Orders - ZAIDA GOMEZ NP Procedure Category Date Status Time * Gi Dvh Fruit Packer Face And Fill CONS 03/07/24 Transmitted 15:09 Chlordiazepoxide Hcl PHA 03/07/24 In Process Capsule (Librium Ca 18:00 Erythromycin Tablet PHA 03/07/24 In Process 22:00 Stool Occult Blood LAB 03/07/24 Logged 15:11 Discontinue Tele JIL 03/07/24 In Process 15:48 Transfer Orders XFER 03/07/24 Transmitted 15:48 Lorazepam 2mg/Ml Inj PHA 03/07/24 In Process (Ativan Inj) 17:00 Basic Metabolic Panel LAB 03/09/24 Verified 04:00 Complete Blood Count LAB 03/09/24 Verified 04:00 Date of Service: Mar 08, 2024 Billing Provider: ZAIDA GOMEZ NP Common Visit Codes: [id number] INP/OBS CARE(HIGH) ZAIDA GOMEZ NP Mar 08, 2024 10:41
[2024-03-08] MEDS ORDERED: PROPOFOL 10 MG/ML 20 ML IV ONE (13:29)
[2024-03-08] MEDS ORDERED: fentaNYL CITRATE 100 MCG/2 ML VL ONE (13:30)
[2024-03-08] MEDS ORDERED: ePHEDrine SULFATE 50 MG/ML AMP ONE (13:39)
[2024-03-08] MEDS ORDERED: PHENYLEPHRINE HCL 10 MG/ML VL ONE (13:40)
--- NOTE | 2024-03-08 15:08 | DVHOP2 ---
Operative Report DATE OF OPERATION: 03/08/24 PROCEDURE: Upper Endoscopy with biopsy PREOPERATIVE INDICATION: The patient is a 68 -year-old male undergoing endoscopy for upper GI bleed POSTOPERATIVE DIAGNOSES: 1. 3 cm sliding-type hiatal hernia with severe grade C erosive esophagitis with underlying Barretts esophagus extending throughout the length of the esophagus There were two punched ulcers in the distal esophagus and linear ulcers ext ending throughout the length of the esophagus 2. Mild gastroduodenitis with erosions otherwise normal examination up to the 2nd and 3rd part of the duodenum with no fresh or old blood in the 3. There was a submucosal prominence in the distal body of the stomach from which biopsies were obtained PROCEDURE PERFORMED BY: Nolan Mendoza GI NURSE: Aysha SCOPE: Olympus videoendoscope. ASA CLASS: 3 PREOPERATIVE MEDICATIONS: Fermin freed, Dr. Wheeler PROCEDURE IN DETAIL: After obtaining an informed consent, the patient was placed on left lateral decubitus position. The patient was then sedated with the above medications. A bite block was placed between his teeth. The endoscope was then passed through the oropharynx, into the esophagus, and through the stomach and pylorus up to the second and third part of the duodenum. The endoscope was then withdrawn. The 2nd and 3rd part of the duodenal was normal. Duodenal bulb showed moderate duodenitis The pre-pyloric area antrum and body showed mild antral gastritis with some superficial erosions. On retroflexion the fundus cardia and angularis were normal. There was no fresh or old blood in the upper GI tract Duodenal and gastric biopsies were obtained. There was a submucosal prominence in the distal body of the stomach Biopsies were obtained. The endoscope was then withdrawn into the distal esophagus. Patient had a 3-4 cm sliding-type hiatal hernia with severe grade C to D erosive esophagitis There were to use round ulcers in the distal esophagus closer to the GE junction and there were moderate linear esophageal ulcers extending into the entire length of the esophagus with underlying hyperemia erythema and suspicions for Barretts esophagus Esophageal biopsies were obtained. The endoscope was then withdrawn The patient tolerated the procedure well without difficulty. COMPLICATIONS : None SPECIMENS: Duodenal biopsies Gastric biopsies Gastric submucosal nodule biopsies Esophageal biopsies DISPOSITION: Transfer back to the floor Stable PLAN: 1. Await for biopsy result 2. Will place pt on Protonix 40 mg bid IV 3. Carafate suspension 1 g p.o. 4 times a day 4. Resume full liquid diet advance to soft mechanical if tolerated 5. Counseled patient about discontinuing alcohol smoking and maintaining himself on a PPI 6. Outpatient follow up with me for ongoing GI management NOLAN MENDOZA MD Mar 08, 2024 15:08
[2024-03-08] MEDS: LORazepam 2MG/ML-1ML VIAL IV PRN (17:02)
[2024-03-09 01:00] VITALS: BP 114/69; PULSE 95; RESP 19; TEMP 98.1; O2SAT 96
[2024-03-09 05:00] VITALS: BP 137/72; PULSE 90; RESP 20; TEMP 98.1; O2SAT 96
[2024-03-09 06:12] LABS: Basophils # (auto) 0 10 ^3/uL (0-0.2); Basophils % (auto) 0.4 % (0.0-2.0); Eosinophils # (auto) 0.3 10 ^3/uL (0-0.8); Eosinophils % (auto) 4.6 % (0.0-7.0); Hematocrit 38.5 % (41.0-53.0); Hemoglobin 12.7 g/dL (13.5-17.5); Lymphocytes % (auto) 18.1 % (10.0-50.0); Mean Corpuscular Hemoglobin 27.6 pg (28.0-32.0); Mean Corpuscular Hgb Conc. 32.9 g/dL (32.0-36.0); Mean Corpuscular Volume 83.8 fL (80.0-100.0); Monocytes # (auto) 0.6 10 ^3/uL (0-1.3); Monocytes % (auto) 11.4 % (0.0-12.0); Neutrophils # (auto) 3.7 10 ^3/uL (1.6-8.6); Neutrophils % (auto) 65.5 % (37.0-80.0); Nucleated Red Blood Cells % 0.1 %; Platelet Count (auto) 283 10^3/uL (140-450); Red Cell Distribution Width 16.6 % (11.8-14.3); White Blood Cell 5.7 10^3/uL (4.4-10.8)
[2024-03-09 06:22] LABS: Calcium 9.4 mg/dL (8.7-10.4); Chloride 101 mmol/L (98-107); Potassium 4.4 mmol/L (3.5-5.1)
[2024-03-09 06:23] LABS: Anion Gap 7 (5-15); Carbon Dioxide 23 mmol/L (20-31)
[2024-03-09 06:28] LABS: BUN/Creatinine Ratio 10.6 (10.0-20.0)
[2024-03-09 06:55] LABS: Blood Urea Nitrogen 9 mg/dL (9-23); Glucose 120 mg/dL (74-106); Sodium 131 mmol/L (136-145)
[2024-03-09 09:00] VITALS: BP 145/75; PULSE 92; RESP 20; TEMP 98.1; O2SAT 97
[2024-03-09 13:00] VITALS: BP 125/71; PULSE 91; RESP 20; TEMP 98.1; O2SAT 96
--- NOTE | 2024-03-09 14:18 | MEDREC ---
[facility] Intervention Section I [facility] Intervention: Review courses of therapy (PLEASE CONSIDER D/C ABX IN THE ABSENCE OF INFECTION ) CINDY MCKEON Mar 09, 2024 14:18
--- NOTE | 2024-03-09 16:55 | DVHPN2 ---
Progress Note - Dictate Date Seen: Mar 09, 2024 Medical Necessity Reason Pt with a Central, PICC or Fol: No Subjective No new complaints Tolerating full liquid diet Hemoglobin stable at 12.1, hyponatremia improving with a sodium of 131 Patient pulled out IV, awaiting PICC line placement EGD showed severe esophagitis with ulceration and underlying Barretts Operative Report DATE OF OPERATION: 03/08/24 PROCEDURE: Upper Endoscopy with biopsy PREOPERATIVE INDICATION: The patient is a 68 -year-old male undergoing endoscopy for upper GI bleed POSTOPERATIVE DIAGNOSES: 1. 3 cm sliding-type hiatal hernia with severe grade C erosive esophagitis with underlying Barretts esophagus extending throughout the length of the esophagus There were two punched ulcers in the distal esophagus and linear ulcers extending throughout the length of the esophagus 2. Mild gastroduodenitis with erosions otherwise normal examination up to the 2nd and 3rd part of the duodenum with no fresh or old blood in the 3. There was a submucosal prominence in the distal body of the stomach from which biopsies were obtained vital signs Vital Sign Date Time Temp Pulse Resp B/P (MAP) Pulse Ox O2 Delivery O2 Flow Rate FiO2 03/09/24 13:00 98.1 91 20 125/71 (89) 96 98.1 03/09/24 08:00 Room Air* 0 21 Total Intake and Output 03/08/24 03/08/24 03/09/24 15:00 23:00 07:00 Intake Total 1150 ml Balance 1150 ml medications Current Medications Medications Dose Ordered Sig/Arthur Route Start Time Stop Time Status Last Admin Dose Admin Octreotide Acetate 500 mcg/ Sodium Chloride 100 ml @ 10 mls/hr Q10H IV 03/06/24 03:30 03/09/24 12:29 10 MLS/HR Ondansetron HCl 4 mg Q4HP PRN IV 03/06/24 08:45 Thiamine HCl 100 mg DAILY IV 03/06/24 10:00 03/09/24 10:31 100 MG Ceftriaxone Sodium 50 ml @ 100 mls/hr DAILY@09 IV 03/06/24 09:00 03/09/24 10:28 100 MLS/HR Folic Acid 1 mg/ Dextrose 50.2 ml @ 200 mls/hr DAILY INJ 03/06/24 10:00 03/09/24 10:32 200 MLS/HR Chlordiazepoxide HCl 10 mg QID PO 03/07/24 18:00 03/09/24 12:28 10 MG Erythromycin 250 mg Q8HR PO 03/07/24 22:00 03/09/24 14:45 250 MG Lorazepam 1 mg Q4HP PRN IV 03/07/24 17:00 03/08/24 17:02 1 MG Pantoprazole Sodium 40 mg BID IV 03/08/24 10:00 03/09/24 10:31 40 MG Sucralfate 1 gm QID@0600,1130,1700,2200 PO 03/08/24 06:00 03/09/24 12:28 1 GM objective General Appearance: Alert, Oriented X3, Cooperative, No acute distress HEENT: Atraumatic, PERRLA Cardiovascular: Normal S1, Normal S2 Abdomen: Normal bowel sounds, Soft, No tenderness; Musculoskeletal: Normal sensory function, Normal motor function Skin: Dry, Intact Psych/Mental Status: Mental status NL, Mood NL laboratory and microbiology Laboratory Tests 03/09/24 05:10 Test 03/09/24 05:10 Range/Units Serum Glucose 120 H 74-106 mg/dL Problems(with codes): (1) Abnormal finding on GI tract imaging (2) Alcohol withdrawal (3) Esophagitis (4) Upper GI bleed (5) Alcohol abuse (6) Hyponatremia Prognosis Plan Protonix 40 mg IV q.12 hours Carafate suspension 1 g p.o. 4 times a day DC aspirin NSAIDs smoking alcohol Patient needs long-term possibly lifelong maintenance on PPI Outpatient follow up with GI Services upon discharge to continue to monitor his GERD and discuss elective colonoscopy Dietary Evaluation Review Comments: consdier 2gNa CCHO-60, diet texture as tolearated aftre the Gi procedures. Expected Outcomes/Goals: Recover from alcohol withdrawal, free from GI symptoms, gradual weight loss. Plan discussed with: Other (Nurse) NOLAN GALINDO MD Mar 09, 2024 16:55
[2024-03-09 17:00] VITALS: BP 141/86; PULSE 82; RESP 20; TEMP 97.9; O2SAT 96
[2024-03-09] MEDS: PANTOPRAZOLE 40 MG TAB PO SCH (17:00)
--- NOTE | 2024-03-09 21:00 | DVHPN2 ---
Reviewed: Care Plan, H&P, Labs, Medications, Previous Orders Changes from previous H/P or p: No Changes General: Per HPI Eyes: No Pain, No Vision change, No Conjunctivae inflammation, No Eyelid inflammation, No Other, No Redness ENT: No Ear pain, No Ear discharge, No Nose pain, No Nose discharge, No Nose congestion, No Mouth pain, No Mouth swelling, No Throat pain, No Throat swelling, No Other Cardiovascular: No Chest Pain, No Palpitations, No Orthopnea, No Paroxysmal Noc. Dyspnea, No Edema, No Lt Headedness, No Other Respiratory: No Cough, No Dry, No Shortness of breath, No SOB with excertion, No Wheezing, No Hemoptysis, No Pleuritic Pain, No Sputum, No Other Gastrointestinal: Nausea, Vomiting, Abdominal Pain; No Diarrhea, No Constipation, No Melena, No Hematochezia; Other (Hematemesis) Genitourinary: No Dysuria, No Frequency, No Incontinence, No Hematuria, No Retention, No Other Musculoskeletal: No other, No neck pain, No shoulder pain, No arm pain, No back pain, No hand pain, No leg pain, No foot pain Skin: No Rash, No Lesions, No Jaundice, No Bruising, No Other Objective Vitals Vital Signs Date Time Temp Pulse Resp B/P (MAP) Pulse Ox O2 Delivery O2 Flow Rate FiO2 03/09/24 17:00 97.9 82 20 141/86 (104) 96 97.9 03/09/24 08:00 Room Air* 0 21 Intake/Output Intake and Output 03/09/24 07:00 Intake Total 1150 ml Balance 1150 ml Intake Oral 1050 ml IV Total 100 ml # Voids 8 General Appearance: Alert, Oriented X3, Cooperative, No acute distress HEENT: Atraumatic, PERRLA Cardiovascular: Normal S1, Normal S2 Abdomen: Normal bowel sounds, Soft, No tenderness Musculoskeletal: Normal sensory function, Normal motor function Skin: Dry, Intact Psych/Mental Status: Mental status NL, Mood NL Medications Current Medications Medications Dose Ordered Sig/Arthur Route Start Time Stop Time Status Last Admin Dose Admin Octreotide Acetate 500 mcg/ Sodium Chloride 100 ml @ 10 mls/hr Q10H IV 03/06/24 03:30 03/09/24 12:29 10 MLS/HR Ondansetron HCl 4 mg Q4HP PRN IV 03/06/24 08:45 Thiamine HCl 100 mg DAILY IV 03/06/24 10:00 03/09/24 10:31 100 MG Ceftriaxone Sodium 50 ml @ 100 mls/hr DAILY@09 IV 03/06/24 09:00 03/09/24 10:28 100 MLS/HR Folic Acid 1 mg/ Dextrose 50.2 ml @ 200 mls/hr DAILY INJ 03/06/24 10:00 03/09/24 10:32 200 MLS/HR Chlordiazepoxide HCl 10 mg QID PO 03/07/24 18:00 03/09/24 17:14 10 MG Erythromycin 250 mg Q8HR PO 03/07/24 22:00 03/09/24 14:45 250 MG Lorazepam 1 mg Q4HP PRN IV 03/07/24 17:00 03/08/24 17:02 1 MG Sucralfate 1 gm QID@0600,1130,1700,2200 PO 03/08/24 06:00 03/09/24 17:13 1 GM Pantoprazole Sodium 40 mg BID@0600,1700 PO 03/09/24 17:00 Laboratory Results Laboratory Tests 03/09/24 05:10 Chemistry Test 03/09/24 05:10 Calcium Level 9.4 mg/dL (8.7-10.4) Urinalysis Test 03/06/24 05:00 Urine Color Yellow (Yellow) Urine Clarity Clear (Clear) Urine pH 5.5 (5.0-9.0) Urine Specific [place] 1.050 (1.001-1.035) Urine Protein Trace (Negative) H Urine Ketones Trace (Negative) Urine Blood Negative /uL (Negative) Urine Nitrite Negative (Negative) Urine Bilirubin Negative (Negative) Urine Urobilinogen Normal mg/dL (Negative) Urine Leukocyte Esterase Negative /uL (Negative) Urine RBC 2 /hpf (0 - 3) Urine WBC 1 /hpf (0 - 3) Urine Squamous Epithelial Cells Few /hpf (<5) Urine Bacteria None seen /hpf (None Seen) Urine Mucus Few (None Seen) Urine Glucose Normal mg/dL (Normal) Assessment/Plan Assessment/Plan Impression: -rule out GI bleed -alcoholism -anxiety disorder -coronary artery disease with previous intervention -obesity -early alcohol withdrawal symptoms Total time spent with patient discussing and formulating plan of care: 35 minutes. Plan discussed with: Patient Date of Service: Mar 09, 2024 Billing Provider: JAMILA PARDO DO Common Visit Codes: [id number] INP/OBS CARE(HIGH) JAMILA PARDO DO Mar 09, 2024 21:00
[2024-03-09 22:00] VITALS: BP 117/64; PULSE 84; RESP 18; TEMP 98.4; O2SAT 98
[2024-03-10 01:00] VITALS: BP 130/67; PULSE 84; RESP 19; TEMP 97.6; O2SAT 95
[2024-03-10 05:00] VITALS: BP 118/66; PULSE 81; RESP 20; TEMP 98.9; O2SAT 93
[2024-03-10 06:05] LABS: Basophils # (auto) 0 10 ^3/uL (0-0.2); Basophils % (auto) 0.5 % (0.0-2.0); Eosinophils # (auto) 0.2 10 ^3/uL (0-0.8); Eosinophils % (auto) 3.2 % (0.0-7.0); Hematocrit 38.4 % (41.0-53.0); Hemoglobin 12.8 g/dL (13.5-17.5); Lymphocytes # (auto) 1.3 10 ^3/uL (0.4-5.4); Lymphocytes % (auto) 20.7 % (10.0-50.0); Mean Corpuscular Hemoglobin 27.6 pg (28.0-32.0); Mean Corpuscular Hgb Conc. 33.3 g/dL (32.0-36.0); Mean Corpuscular Volume 82.9 fL (80.0-100.0); Monocytes # (auto) 0.7 10 ^3/uL (0-1.3); Monocytes % (auto) 11.3 % (0.0-12.0); Neutrophils # (auto) 3.9 10 ^3/uL (1.6-8.6); Neutrophils % (auto) 64.3 % (37.0-80.0); Nucleated Red Blood Cells % 0.1 %; Platelet Count (auto) 287 10^3/uL (140-450); Red Blood Cells 4.63 10^6/uL (4.5-5.90); Red Cell Distribution Width 16.7 % (11.8-14.3); White Blood Cell 6.1 10^3/uL (4.4-10.8)
[2024-03-10 06:20] LABS: Anion Gap 7 (5-15); Calcium 9.1 mg/dL (8.7-10.4); Carbon Dioxide 22 mmol/L (20-31); Chloride 104 mmol/L (98-107); Potassium 4.1 mmol/L (3.5-5.1)
[2024-03-10 06:26] LABS: BUN/Creatinine Ratio 11.9 (10.0-20.0); Blood Urea Nitrogen 10 mg/dL (9-23)
[2024-03-10 06:33] LABS: Glucose 138 mg/dL (74-106); Sodium 133 mmol/L (136-145)
[2024-03-10 08:00] VITALS: PULSE 84; RESP 18
[2024-03-10 09:00] VITALS: BP 105/54; PULSE 92; RESP 18; TEMP 97.4; O2SAT 98
[2024-03-10 13:00] VITALS: BP 133/75; PULSE 84; RESP 18; TEMP 98.1; O2SAT 96
[2024-03-10] MEDS ORDERED: AZIT-43 PO (14:24)
--- NOTE | 2024-03-10 14:25 | DVHDS2 ---
Discharge Summary Date of Admission Mar 06, 2024 at 08:37 Date of Discharge: Mar 10, 2024 Labs/Diagnostic Data: Laboratory Results Test 03/10/24 05:15 03/07/24 14:09 03/07/24 07:15 03/06/24 13:54 White Blood Count 6.1 10^3/uL (4.4-10.8) Red Blood Count 4.63 10^6/uL (4.5-5.90) Hemoglobin 12.8 g/dL (13.5-17.5) Hematocrit 38.4 % (41.0-53.0) Mean Corpuscular Volume 82.9 fL (80.0-100.0) Mean Corpuscular Hemoglobin 27.6 pg (28.0-32.0) Mean Corpuscular Hemoglobin Concent 33.3 g/dL (32.0-36.0) Red Cell Distribution Width 16.7 % (11.8-14.3) Platelet Count 287 10^3/uL (140-450) Mean Platelet Volume 6.3 fL (6.9-10.8) Neutrophils (%) (Auto) 64.3 % (37.0-80.0) Lymphocytes (%) (Auto) 20.7 % (10.0-50.0) Monocytes (%) (Auto) 11.3 % (0.0-12.0) Eosinophils (%) (Auto) 3.2 % (0.0-7.0) Basophils (%) (Auto) 0.5 % (0.0-2.0) Neutrophils # (Auto) 3.9 10 ^3/uL (1.6-8.6) Lymphocytes # (Auto) 1.3 10 ^3/uL (0.4-5.4) Monocytes # (Auto) 0.7 10 ^3/uL (0-1.3) Eosinophils # (Auto) 0.2 10 ^3/uL (0-0.8) Basophils # (Auto) 0 10 ^3/uL (0-0.2) Nucleated Red Blood Cells 0.1 % Sodium Level 133 mmol/L (136-145) Potassium Level 4.1 mmol/L (3.5-5.1) Chloride Level 104 mmol/L (98-107) Carbon Dioxide Level 22 mmol/L (20-31) Anion Gap 7 (5-15) Blood Urea Nitrogen 10 mg/dL (9-23) Creatinine 0.84 mg/dL (0.700-1.30) Glomerular Filtration Rate Calc 94 mL/min (>90) BUN/Creatinine Ratio 11.9 (10.0-20.0) Serum Glucose 138 mg/dL (74-106) Calcium Level 9.1 mg/dL (8.7-10.4) Vancomycin Level Trough 15.3 ug/mL (5-10) Total Bilirubin 0.6 mg/dL (0.2-1.0) Aspartate Amino Transferase (AST) 38 U/L (13-40) Alanine Aminotransferase (ALT) 27 U/L (7-40) Alkaline Phosphatase 69 U/L (46-116) Total Protein 6.2 g/dL (5.7-8.2) Albumin 3.8 g/dL (3.2-4.8) Troponin I High Sensitivity 6 ng/L (</=54) Test 03/06/24 10:23 03/06/24 05:00 03/06/24 03:07 03/06/24 01:05 Magnesium Level 2.2 mg/dL (1.6-2.6) Ammonia 21 umol/L (11-32) Amylase Level 90 U/L (30-118) Thyroid Stimulating Hormone (TSH) 0.22 uIU/mL (0.55-4.78) Hepatitis A IgM Antibody Negative Hepatitis B Surface Antigen Negative (Negative) Hepatitis B Core IgM Antibody Negative (Negative) Hepatitis C Antibody Negative (Negative) Urine Color Yellow (Yellow) Urine Clarity Clear (Clear) Urine pH 5.5 (5.0-9.0) Urine Specific [place] 1.050 (1.001-1.035) Urine Protein Trace (Negative) Urine Ketones Trace (Negative) Urine Blood Negative /uL (Negative) Urine Nitrite Negative (Negative) Urine Bilirubin Negative (Negative) Urine Urobilinogen Normal mg/dL (Negative) Urine Leukocyte Esterase Negative /uL (Negative) Urine RBC 2 /hpf (0 - 3) Urine WBC 1 /hpf (0 - 3) Urine Squamous Epithelial Cells Few /hpf (<5) Urine Bacteria None seen /hpf (None Seen) Urine Mucus Few (None Seen) Urine Glucose Normal mg/dL (Normal) Urine Opiates Screen Pos (NEGATIVE) Urine Fentanyl Screen Neg (NEGATIVE) Urine Barbiturates Screen Neg (NEGATIVE) Urine Phencyclidine Screen Neg (NEGATIVE) Urine Amphetamines Screen Neg (NEGATIVE) Urine Benzodiazepines Screen Pos (NEGATIVE) Urine Cocaine Screen Neg (NEGATIVE) Urine Cannabinoids Screen Neg (NEGATIVE) Lactic Acid Level 1.7 mmol/L (0.4-2.0) Prothrombin Time 11.1 sec (9.3-11.8) Prothrombin Time INR 1.05 (0.9-1.15) Lipase 39 U/L (12-53) Plasma/Serum Blood Alcohol 3.4 mg/dL (<10) Other Laboratory Tests 03/10/24 05:15 Brief Hx & Hospital Course: Delon Morris is a 68-year-old male with past medical history of CAD status post PCI greater than 6 years ago at [facility], hypertension, hyperlipidemia, AFib, ETOH abuse, anxiety, arthritis, and right lower extremity fracture in 2017 who presents to the ED today for right upper quadrant abdominal pain, nausea, and vomiting bright red blood x2 days. Patient reports that he drinks about 18 packs of beer a day and that he went to [facility] yesterday for the abdominal pain and they discharged him without any medications. Patient reports that he has not been taking his medications for the last five days. He also reports that he has not had an appetite for the last 3 weeks and has just been drinking. Patient denies any recent stressors. Patient also denies chest pain, shortness of breath, diarrhea, lightheadedness, fevers, chills, and dizziness. -rule out GI bleed -alcoholism -anxiety disorder -coronary artery disease with previous intervention -obesity -early alcohol withdrawal symptoms Total time spent with patient discussing and formulating plan of care: >45 minutes. Condition at Discharge: Good Final Diagnosis/Problems List see nash Discharge Disposition: Home Discharge Instruct/Medications Diet: Cardiac 2g Na,low cholest Activity: No Restrictions, As Tolerated Discharge Statement: "Patient was advised to return to the ER or call 911 if any headaches, dizziness, shortness of breath, chest pain, abdominal pain, bleeding, fevers, or worsening of medical condition. Patient was counseled about treatment plan, medications, possible side effects, patientverbalized understanding. All questions were answered to the best of my ability. This discharge took greater then 30 minutes in planning, reviewing documentation, counseling the patient, and discussing with other team members." ASSESSMENT ASSESSMENT Assessment Date of Service: Mar 10, 2024 Billing Provider: JAMILA PARDO DO Common Visit Codes: 00957-XSA/OBS DISCH DAY >30min JAMILA PARDO DO Mar 10, 2024 14:25
[2024-03-10 17:00] VITALS: BP 129/69; PULSE 78; RESP 19; TEMP 97.6; O2SAT 97
== END 2024-03-10 18:50 | disposition home or self-care (01) | DRG 380 ==
LOC: EDBD 00:31 → ER 00:31 → TELE 08:37 → TELE-WESTW 22:55 → WEST WING 03-09 10:05
PROVIDERS: ADMIT Internal Medicine; ATTEND Internal Medicine
PROC: 0DB68ZX Excision of Stomach, Via Natural or Artificial Opening Endoscopic, Diagnostic (ICD-10-PCS; 2024-03-08)
PROC: 0DB58ZX Excision of Esophagus, Via Natural or Artificial Opening Endoscopic, Diagnostic (ICD-10-PCS; 2024-03-08)
PROC: 0DB98ZX Excision of Duodenum, Via Natural or Artificial Opening Endoscopic, Diagnostic (ICD-10-PCS; principal; 2024-03-08 13:32)
DX: K22.70 Barrett's esophagus without dysplasia (principal); J96.00 Acute respiratory failure, unspecified whether with hypoxia or hypercapnia; E87.1 Hypo-osmolality and hyponatremia; E87.20 Acidosis, unspecified; F10.239 Alcohol dependence with withdrawal, unspecified; K29.91 Gastroduodenitis, unspecified, with bleeding; K29.81 Duodenitis with bleeding; K29.71 Gastritis, unspecified, with bleeding; E87.8 Other disorders of electrolyte and fluid balance, not elsewhere classified; E78.5 Hyperlipidemia, unspecified; I10 Essential (primary) hypertension; I48.91 Unspecified atrial fibrillation; K44.9 Diaphragmatic hernia without obstruction or gangrene; I25.10 Atherosclerotic heart disease of native coronary artery without angina pectoris; F41.9 Anxiety disorder, unspecified; R73.9 Hyperglycemia, unspecified; E66.9 Obesity, unspecified; Z98.61 Coronary angioplasty status; Z91.199 Patient's noncompliance with other medical treatment and regimen due to unspecified reason; Z82.3 Family history of stroke; Z80.1 Family history of malignant neoplasm of trachea, bronchus and lung; Z68.35 Body mass index [BMI] 35.0-35.9, adult; Y90.0 Blood alcohol level of less than 20 mg/100 ml
CPT/HCPCS: 36415; 71260; 74177; 80048; 80053; 80074; 80202; 80307; 80320; 81001; 82040; 82140; 82150; 83605; 83690; 83735; 84443; 84484; 85025; 85610; 86850; 86900; 86901; 93005; 96365; 96375; G0378; J1885; J2405; J2470; J2704; J7060

== ENCOUNTER 2024-05-07 07:46 | Inpatient (IN) | payer BC ==
[~2024-05-07] VITALS: Ht 180.3 cm; Wt 34.3 kg
[~2024-05-07 07:46] MED LIST changes: +AZIT-43 PO
[2024-05-07 07:57] VITALS: PULSE 103; RESP 20; O2SAT 98
--- NOTE | 2024-05-07 08:08 | ED.PDOC ---
Eye-HPI HPI Comments 68 year old male DAVID presents to the ED with chief complaint of difficulty swallowing. Patient reports that he has been experiencing worsening difficulty in swallowing for the past month. Patient relays that he will choke on his food almost daily and needs to make himself vomit to get the food unstuck. Patient states he has also been experiencing worsening exertional SOB. Patient denies any chest pain, fever, chills, dizziness, sore throat, abdominal pain, or diarrhea. Chief Complaint: Sore Throat Time Seen by MD: 08:04 Primary Care Provider: Unknown Reviewed Notes: Nurses Notes, Building Certifier Notes, Medications, Allergies Allergies: Coded Allergies: NO KNOWN ALLERGIES (Unverified , 11/03/21) Home Meds Active Scripts Azithromycin (Azithromycin) 250 Mg Tab, 250 MG PO DAILY MDD 500 for 5 Days, #6 TAB 0 Refills 2 TABLETS ORALLY ON DAY ONE, THEN 1 TABLET ORALLY DAILY FOR 4 DAYS Prov:JAMILA PARDO DO 03/10/24 Gabapentin (Gabapentin) 100 Mg Cap, 3 CAP PO TID, #63 CAP Take 3 tablets (300mg) by mouth three times daily for 7 days then continue home dose of 100mg po TID. Prov:LUCILLE RICHARDS MD 12/02/23 Hydroxyzine Pamoate (Vistaril) 25 Mg Cap, 1 CAP PO TID, #90 CAP 1 Refill Prov:CHENCHO BONILLA MD 12/04/22 Losartan Potassium (Losartan Potassium) 25 Mg Tab, 25 MG PO DAILY, #30 TAB Prov:LUCILLE RICHARDS MD 05/27/22 Apixaban Base (ELIQUIS) 5 Mg Tab, 5 MG PO BID, #60 TAB Prov:LUCILLE RICHARDS MD 05/27/22 Metoprolol Succinate (Metoprolol Succinate Er) 25 Mg Tab, 25 MG PO DAILY, #60 TAB Prov:LUCILLE RICHARDS MD 05/27/22 Thiamine Hcl (Thiamine Hcl) 100 Mg Tab, 100 MG PO DAILY, #30 TAB Prov:LUCILLE RICHARDS MD 05/27/22 Folic Acid (Folic Acid) 1 Mg Tab, 1 TAB PO DAILY, #30 TAB Prov:LUCILLE RICHARDS MD 05/27/22 Reported Medications Cholecalciferol (D3 SUPER STRENGTH) 2,000 Unit Cap, 1 CAP PO DAILY 05/27/22 Prednisone (Prednisone) 5 Mg Tab, 1 TAB PO BID 05/27/22 Quetiapine Fumerate (QUETIAPINE FUMARATE) 100 Mg Tab, 1 TAB PO 05/27/22 Escitalopram Oxalate (ESCITALOPRAM OXALATE) 10 Mg Tab, 1 TAB PO DAILY 05/27/22 Information Source: Patient, Emergency Med Personnel Mode of Arrival: EMS Timing: Days, Months Duration: Since onset Prehospital treatment: None Lids: Normal Conjunctiva: Normal Cornea: Normal Pupils: Normal EOM: Normal Fundus: Normal Anterior chamber: Normal Onset: Spontaneous Throat Exposed to: None History of: None Associated signs and symptoms: Other (Difficulty swallowing) Past Medical History PAST MEDICAL HISTORY: AFIB, Anxiety, Arthritis, CAD, High Lipids, HTN Surgical History: Denies all surgeries Family History Family History: Reviewed,noncontributory to illness, Unknown Social History Smoker: Non-Smoker Alcohol: Heavy Drugs: Denies Drug Use Lives In: Home Constitutional: denies: chills, diaphoresis, fatigue, fever, malaise, sweats, weakness, others EENTM: reports: others (Difficulty swallowing); denies: blurred vision, double vision, ear bleeding, ear discharge, ear drainage, ear pain, ear ringing, eye pain, eye redness, hearing loss, mouth pain, mouth swelling, nasal discharge, nose bleeding, nose congestion, nose pain, photophobia, tearing, throat pain, throat swelling, voice changes Respiratory: reports: SOB with excertion; denies: cough, hemoptysis, orthopnea, SOB at rest, shortness of breath, stridor, wheezing, others Cardiovascular: denies: chest pain, dizzy spells, diaphoresis, Dyspnea on exertion, edema, irregular heart beat, left arm pain, lightheadedness, palpitations, PND, syncope, others Gastrointestinal: denies: abdomen distended, abdominal pain, blood streaked bowels, constipated, diarrhea, dysphagia, difficulty swallowing, hematemesis, melena, nausea, poor appetite, poor fluid intake, rectal bleeding, rectal pain, vomiting, others Genitourinary: denies: burning, dysuria, flank pain, frequency, hematuria, incontinence, penile discharge, penile sore, pain, testicle pain, testicle swelling, urgency, others Neurological: denies: dizziness, fainting, headache, left sided numbness, left sided weakness, numbness, paresthesia, pre-existing deficit, right sided numbness, right sided weakness, seizure, speech problems, tingling, tremors, weakness, others Musculoskeletal: denies: back pain, gout, joint pain, joint swelling, muscle pain, muscle stiffness, neck pain, others Integumetry: denies: bruises, change in color, change in hair/nails, dryness, laceration, lesions, lumps, rash, wounds, others Allergic/Immunocompromised: denies: Difficulty Healing, Frequent Infections, Hives, Itching, others Hematologic/Lymphatic: denies: anemia, blood clots, easy bleeding, easy bruising, swollen glands, others Endocrine: denies: excessive hunger, excessive sweating, excessive thirst, excessive urination, flushing, intolerance to cold, intolerance to heat, unexplained weight gain, unexplained weight loss, others Psychiatric: denies: anxiety, bipolar disorder, depression, hopeless, panic disorder, schizophrenia, sleepless, suicidal, others All Other Systems: Reviewed and Negative Physical Exam General Appearance: Moderate Distress, Normal HEENT: Normal ENT Inspection, PERRL/EOMI Neck: Full Range of Motion, Non-Tender, Normal, Normal Inspection Respiratory: Chest Non-Tender, No Accessory Muscle Use, Wheezing Cardiovascular: No Edema, No JVD, No Murmur, No Gallop, Normal Peripheral Pulses, Regular Rate/Rhythm Breast Exam: Deferred Gastrointestinal: Distended, No Organomegaly, No Pulsatile Mass, Normal Bowel Sounds, Soft Genitalia: Deferred Pelvic: Deferred Rectal: Deferred Extremities: No calf tenderness, Normal capillary refill, Normal inspection, Normal range of motion, Non-tender, No pedal edema Musculoskeletal : Apperance: Normal Neurologic: Alert, presentation designer II-XII nml as Tested, No Motor Deficits, Normal Affect, Normal Mood, No Sensory Deficits Cerebellar Function: NOT DONE Reflexes: NOT DONE Skin: Dry, Normal Color, Warm Peripheral Pulses: 3+ Radial (R), 3+ Radial (L) Lymphatic: No Adenopathy Was a procedure done? Was a procedure done?: No EENT DIFF Eye: Bacterial, Viral X-Ray, Labs, Meds, VS Vital Signs Date Time Temp Pulse Resp B/P (MAP) Pulse Ox O2 Delivery O2 Flow Rate FiO2 05/07/24 07:57 103 20 98 Room Air* 0 21 05/07/24 07:57 98.0 103 20 173/106 (128) 98 98.0 05/07/24 07:57 98.0 98 20 173/106 (128) 98 98.0 Lab Test 05/07/24 09:08 05/07/24 08:15 Range/Units Troponin I High Sensitivity 4 3 L </=54 ng/L White Blood Count 9.6 4.4-10.8 10^3/uL Red Blood Count 5.23 4.5-5.90 10^6/uL Hemoglobin 15.1 13.5-17.5 g/dL Hematocrit 44.5 41.0-53.0 % Mean Corpuscular Volume 85.2 80.0-100.0 fL Mean Corpuscular Hemoglobin 28.9 28.0-32.0 pg Mean Corpuscular Hemoglobin Concent 34.0 32.0-36.0 g/dL Red Cell Distribution Width 17.8 H 11.8-14.3 % Platelet Count 272 140-450 10^3/uL Mean Platelet Volume 6.3 L 6.9-10.8 fL Neutrophils (%) (Auto) 81.9 H 37.0-80.0 % Lymphocytes (%) (Auto) 11.9 10.0-50.0 % Monocytes (%) (Auto) 5.0 0.0-12.0 % Eosinophils (%) (Auto) 1.0 0.0-7.0 % Basophils (%) (Auto) 0.2 0.0-2.0 % Neutrophils # (Auto) 7.9 1.6-8.6 10 ^3/uL Lymphocytes # (Auto) 1.2 0.4-5.4 10 ^3/uL Monocytes # (Auto) 0.5 0-1.3 10 ^3/uL Eosinophils # (Auto) 0.1 0-0.8 10 ^3/uL Basophils # (Auto) 0 0-0.2 10 ^3/uL Nucleated Red Blood Cells 0.1 % Sodium Level 124 L 136-145 mmol/L Potassium Level 4.7 3.5-5.1 mmol/L Chloride Level 94 L 98-107 mmol/L Carbon Dioxide Level 20 20-31 mmol/L Anion Gap 10 5-15 Blood Urea Nitrogen < 5 L 9-23 mg/dL Creatinine 0.83 0.700-1.30 mg/dL Glomerular Filtration Rate Calc 95 >90 mL/min BUN/Creatinine Ratio 6.0 L 10.0-20.0 Serum Glucose 116 H 74-106 mg/dL Calcium Level 9.0 8.7-10.4 mg/dL B-Type Natriuretic Peptide 40.43 0-100 pg/mL Chest XR: FINDINGS: Lines and tubes: None Cardiomediastinal silhouette: normal Pulmonary vasculature: normal Lung expansion: low Lung airspace: normal Lung interstitium: normal Pleura: normal Pneumothorax: no Bones: Unremarkable Other: no IMPRESSION: No acute intrathoracic abnormality. Patient alert. States that he is having difficulty breathing. He does drink. Vitals stable. Abdomen is soft nontender. States that he has something stuck in his throat. He is short of breath. Chest x-ray reviewed does not show any acute process. Possible pneumonitis. WBC within normal limits. Hemoglobin within normal limits. Cardiac marker within normal limits. Possible alcohol related. Blood pressure elevated. Was given clonidine. Possibly will need stress test. Echocardiogram. Reviewed his previous visit. Explained to the patient. Continue cardiac monitoring. Time of 1ST Reevaluation: 09:04 Reevaluation 1ST: Unchanged Patient Education/Counseling: Diagnosis, Treatment Family Education/Counseling: No Family Present Additional Information Previous visit documents reviewed: for abdominal pain The following tests were ordered, and results were reviewed by me: Additional Information was gathered from interviewing the following independent historians: EMS I reviewed and agreed with the following test results read by other providers: I discussed treatment and results with medical personnel and: Patient Departure 1 Departure Time of Disposition: 09:54 Impression: Primary Impression: Pneumonitis Additional Impressions: Alcohol abuse Esophagitis Disposition: ADMITTED INPATIENT Admit to: Med Surg Condition: Guarded Critical Care Note Critical Care Time?: No Stability Stability form required: No Heart Score Heart Score: Heart Score Response (Comments) Value History N/A 0 EKG N/A 0 Age N/A 0 Risk Factors N/A 0 Troponin N/A 0 Total 0 I personally scribed for FRANCK CHE MD ([email or web address]) on 05/07/24 at 08:08. Electronically submitted by David Daniels ([email or web address]). I personally scribed for FRANCK CHE MD ([email or web address]) on 05/07/24 at 09:51. Electronically submitted by David Daniels ([email or web address]). FRANCK CHE MD May 07, 2024 08:08
[2024-05-07 08:26] LABS: Basophils # (auto) 0 10 ^3/uL (0-0.2); Basophils % (auto) 0.2 % (0.0-2.0); Eosinophils # (auto) 0.1 10 ^3/uL (0-0.8); Hematocrit 44.5 % (41.0-53.0); Hemoglobin 15.1 g/dL (13.5-17.5); Lymphocytes # (auto) 1.2 10 ^3/uL (0.4-5.4); Lymphocytes % (auto) 11.9 % (10.0-50.0); Mean Corpuscular Hemoglobin 28.9 pg (28.0-32.0); Mean Corpuscular Volume 85.2 fL (80.0-100.0); Monocytes # (auto) 0.5 10 ^3/uL (0-1.3); Neutrophils # (auto) 7.9 10 ^3/uL (1.6-8.6); Neutrophils % (auto) 81.9 % (37.0-80.0); Nucleated Red Blood Cells % 0.1 %; Platelet Count (auto) 272 10^3/uL (140-450); Red Blood Cells 5.23 10^6/uL (4.5-5.90); Red Cell Distribution Width 17.8 % (11.8-14.3); White Blood Cell 9.6 10^3/uL (4.4-10.8)
[2024-05-07 08:39] LABS: Potassium 4.7 mmol/L (3.5-5.1)
[2024-05-07 08:40] LABS: Anion Gap 10 (5-15)
[2024-05-07 08:48] LABS: Blood Urea Nitrogen < 5 mg/dL (9-23); Carbon Dioxide 20 mmol/L (20-31); Chloride 94 mmol/L (98-107); Glucose 116 mg/dL (74-106); Sodium 124 mmol/L (136-145)
--- NOTE | 2024-05-07 08:49 | DVH ---
XY CHEST PORTABLE, HISTORY: sob COMPARISON: XY CHEST PORTABLE on DOS: 12/04/22, XY CHEST PORTABLE on DOS: 05/26/22 XY CHEST PORTABLE on DOS: 12/04/22, XY CHEST PORTABLE on DOS: 05/26/22 TECHNICAL DATA: 1 view of the chest was obtained. FINDINGS: Lines and tubes: None Cardiomediastinal silhouette: normal Pulmonary vasculature: normal Lung expansion: low Lung airspace: normal Lung interstitium: normal Pleura: normal Pneumothorax: no Bones: Unremarkable Other: no IMPRESSION: No acute intrathoracic abnormality.
[2024-05-07] MEDS ORDERED: NITROGLYCERIN 0.4 MG SL TAB SL PRN ×2 (12:00→12:15)
[2024-05-07] MEDS ORDERED: DOCUSATE SOD 100 MG CAP PO PRN ×2 (12:00→12:15)
[2024-05-07] MEDS ORDERED: ONDANSETRON HCL 4 MG/2 ML VIAL IV PRN ×2 (12:00→12:15)
[2024-05-07] MEDS ORDERED: MORPHINE SULFATE INJ 2 MG/ml SYRG IV PRN ×2 (12:00→12:15)
[2024-05-07] MEDS ORDERED: ACETAMINOPHEN 325 MG TAB PO PRN ×2 (12:00→12:15)
[2024-05-07] MEDS ORDERED: HYDROcodone-ACET 5/325MG TAB PO PRN ×2 (12:00→12:15)
[2024-05-07] MEDS ORDERED: SODIUM CHLORIDE 0.9% 1,000 ML IV ONE (12:00)
[2024-05-07] MEDS ORDERED: ROSU40TA47 PO (12:09)
[2024-05-07] MEDS ORDERED: LISI40TA16 PO (12:09)
[2024-05-07] MEDS ORDERED: SUCR1SUS26 PO (12:09)
[2024-05-07] MEDS ORDERED: ATEN50TA PO (12:09)
[2024-05-07] MEDS ORDERED: FENO160T PO (12:09)
--- NOTE | 2024-05-07 12:38 | DVHHP2 ---
History of Present Illness Reason for Visit: Difficulty swallowing History of Present Illness Delon Morris is a 68-year-old male with past medical history of CAD status post PCI, hypertension, hyperlipidemia, atrial fibrillation, ETOH abuse, anxiety, arthritis, and ulcer, who presents to the hospital today for abd ominal pain and difficult swallowing. Patient states that he has been experiencing difficulty swallowing for a while, but the last 2 weeks is has worsened significantly. These last couple of days he has not been able to eat or take his medications. Patient has a history of ETOH dependance. He states he has been cutting down. He no longer drinks [employer] hard liquor, and is only drinking about 6 beers/day. Patient denies chest pain, shortness of breath, diarrhea, lightheadedness, fevers, chills, and dizziness. Cardiovascular: AFIB, CAD, HTN, hyperipidemia Psych: Anxiety Musculoskeletal: Other (rheumatoid arthrtis) Past Surgical History: Other (right leg surgery) Family History: None Smoke: No ALCOHOL: heavy (6 beers/day) Drugs: None Lives: Alone Domestic Violence: Neg Review of Systems Constitutional: No: Fever, Chills, Sweats, Weakness, Malaise, Other Eyes: No: Pain, Vision change, Conjunctivae inflammation, Eyelid inflammation, Other, Redness ENT: Throat swelling, Other (difficulty swallowing); No: Ear pain, Ear discharge, Nose pain, Nose discharge, Nose congestion, Mouth pain, Mouth swelling, Throat pain Respiratory: No: Cough, Dry, Shortness of breath, SOB with excertion, Wheezing, Hemoptysis, Pleuritic Pain, Sputum, Wheezing, Other Cardiovascular: No: Chest Pain, Palpitations, Orthopnea, Paroxysmal Noc. Dyspnea, Edema, Lt Headedness, Other Gastrointestinal: Abdominal Pain; No: Nausea, Vomiting, Diarrhea, Constipation, Melena, Hematochezia, Other Genitourinary: No Dysuria, No Frequency, No Incontinence, No Hematuria, No Retention, No Other Musculoskeletal: No: other, neck pain, shoulder pain, arm pain, back pain, hand pain, leg pain, foot pain Skin: No: Rash, Lesions, Jaundice, Bruising, Other Neurological: No: Weakness, Numbness, Incoordination, Change in speech, Confusion, Seizures, Other Allergies: Coded Allergies: NO KNOWN ALLERGIES (Unverified , 11/03/21) Exam Vital Signs Vital Signs Date Time Temp Pulse Resp B/P (MAP) Pulse Ox O2 Delivery O2 Flow Rate FiO2 05/07/24 07:57 103 20 98 Room Air* 0 21 05/07/24 07:57 98.0 173/106 (128) 98.0 General Appearance: Alert, Oriented X3, Cooperative, moderate distress HEENT: Atraumatic, PERRLA, Mucous membr. moist/pink Respiratory: Clear to auscultation, Normal air movement Cardiovascular: Regular rate, Normal S1, Normal S2, No murmurs Abdominal: Normal bowel sounds, Soft Extremities: No clubbing, No cyanosis, No edema, Normal pulses, No tenderness/swelling Skin: No rashes, No breakdown, No significant lesion Neuro: Normal gait, Normal speech, Strength at 5/5 X4 ext Psych/Mental Status: Mental status NL, Mood NL Labs/Xrays Labs Test 05/07/24 09:08 05/07/24 08:15 Range/Units Troponin I High Sensitivity 4 </=54 ng/L White Blood Count 9.6 4.4-10.8 10^3/uL Red Blood Count 5.23 4.5-5.90 10^6/uL Hemoglobin 15.1 13.5-17.5 g/dL Hematocrit 44.5 41.0-53.0 % Mean Corpuscular Volume 85.2 80.0-100.0 fL Mean Corpuscular Hemoglobin 28.9 28.0-32.0 pg Mean Corpuscular Hemoglobin Concent 34.0 32.0-36.0 g/dL Red Cell Distribution Width 17.8 H 11.8-14.3 % Platelet Count 272 140-450 10^3/uL Mean Platelet Volume 6.3 L 6.9-10.8 fL Neutrophils (%) (Auto) 81.9 H 37.0-80.0 % Lymphocytes (%) (Auto) 11.9 10.0-50.0 % Monocytes (%) (Auto) 5.0 0.0-12.0 % Eosinophils (%) (Auto) 1.0 0.0-7.0 % Basophils (%) (Auto) 0.2 0.0-2.0 % Neutrophils # (Auto) 7.9 1.6-8.6 10 ^3/uL Lymphocytes # (Auto) 1.2 0.4-5.4 10 ^3/uL Monocytes # (Auto) 0.5 0-1.3 10 ^3/uL Eosinophils # (Auto) 0.1 0-0.8 10 ^3/uL Basophils # (Auto) 0 0-0.2 10 ^3/uL Nucleated Red Blood Cells 0.1 % Sodium Level 124 L 136-145 mmol/L Potassium Level 4.7 3.5-5.1 mmol/L Chloride Level 94 L 98-107 mmol/L Carbon Dioxide Level 20 20-31 mmol/L Anion Gap 10 5-15 Blood Urea Nitrogen < 5 L 9-23 mg/dL Creatinine 0.83 0.700-1.30 mg/dL Glomerular Filtration Rate Calc 95 >90 mL/min BUN/Creatinine Ratio 6.0 L 10.0-20.0 Serum Glucose 116 H 74-106 mg/dL Calcium Level 9.0 8.7-10.4 mg/dL B-Type Natriuretic Peptide 40.43 0-100 pg/mL CT CHEST: Lower neck and thyroid: Visualized thyroid gland is unremarkable with no obvious nodule noted. Lungs: Subpleural atelectatic areas and/or scarring in both lower pulmonary lobes posteriorly. Few ground-glass pulmonary nodules with sizes ranging from 2 mm to 7 mm scattered in both lungs, largest of approximate size 7 mm in the right lower pulmonary lobe. Advised follow-up CT at 3-6 months interval as per Fleischner Society guidelines. The rest of the pulmonary parenchyma does not show any significant abnormality. Pleural spaces are clear with no evidence of pleural effusion. Mediastinum, heart and great vessels: The trachea and the mainstem bronchi are normal. Few soft tissue density pretracheal, right paratracheal, aortopulmonary window and prevascular lymph nodes, largest of approximate size 17 x 9 mm. Cardiac size appears unremarkable. No evidence of aneurysmal dilatation of the ascending aorta. Calcific atherosclerotic aortic plaques and coronary arterial calcifications noted. Otherwise, the rest of the mediastinal vasculature is normal. No evidence of pericardial effusion. Circumferential long segment edematous wall thickening of the thoracic esophagus (thickness up to approximately 5.5 mm) with fluid and air-filled distended lumen (transverse luminal diameter up to approximately 19 mm), infective/inflammatory etiology, esophagitis. Periesophageal mediastinal fat stranding noted around the middle one third of the thoracic esophagus. Chest wall and axillae: Soft tissue density, subcentimetric bilateral axillary lymph nodes noted. Osseous structures: Sclerotic lesion of approximate size 9 mm in the T12 vertebral body, likely osteoma. Degenerative changes in the thoracolumbar vertebrae noted in the form of osteophytes in the visualized vertebral bodies. Ribs are unremarkable. CT ABDOMEN: Liver: The liver is normal in size with diffuse hepatic steatosis. The portal venous radicles are normal. There is no intrahepatic biliary radicle dilatation. Intrahepatic vascular calcifications noted. Gallbladder: The gallbladder is normal and reveals no intrinsic abnormality. The common bile duct is not dilated. Pancreas: The pancreas is normal in size and shape. No focal lesion is seen within. The peripancreatic fat planes are normal. Spleen: The spleen is normal in size and does not show any focal abnormality. Retroperitoneum: Both adrenal glands are normal in size and morphology. There is no significant retroperitoneal lymphadenopathy. The kidneys are normal in size with no hydronephrosis or renal calculi. Bosniak class I simple renal cortical cysts in both kidneys, largest of approximate size 12 mm at the mid pole of right kidney posteriorly for which no routine follow-up is required. Vessels: Scattered calcific atherosclerotic aorto-iliac plaques noted. Otherwise, IVC and the mesenteric vessels appear normal. Stomach and bowel: Small fat filled umbilical hernia. Fluid-filled, distended (diameter up to approximately 3.5 cm) jejunal and distal duodenal bowel loops, likely infective/inflammatory etiology, enteritis. Advised clinicopathological correlation. The rest of the small bowel loops are unremarkable. There is no ascites. Skeletal system: Sclerotic lesion of approximate size 9 mm in the T12 vertebral body, likely osteoma. Mild degenerative changes noted in thoracolumbar spine. The pelvic bones are unremarkable. CT PELVIS: Appendix: The appendix is unremarkable in appearance. Colon: The ascending, transverse, descending, sigmoid colon and rectum are unremarkable. Urinary bladder: The urinary bladder is unremarkable with prominent median umbilical ligament. Pelvic organs: The prostate is normal in size and unremarkable in appearance. No significant pelvic lymphadenopathy is identified. No abnormal fluid collection is seen. Calcified mesenteric granuloma of approximate size 18 x 10 mm noted in the right iliac fossa. IMPRESSION: 1. Circumferential long segment edematous wall thickening of the thoracic esophagus (thickness up to approximately 5.5 mm) with fluid and air-filled distended lumen (transverse luminal diameter up to approximately 19 mm), infective/inflammatory etiology, esophagitis. Periesophageal mediastinal fat stranding noted around the middle one third of the thoracic esophagus. 2. Fluid-filled, distended (diameter up to approximately 3.5 cm) jejunal and distal duodenal bowel loops, likely infective/inflammatory etiology, enteritis. Advised clinicopathological correlation. 3. Few ground-glass pulmonary nodules with sizes ranging from 2 mm to 7 mm scattered in both lungs, largest of approximate size 7 mm in the right lower pulmonary lobe. Advised follow-up CT at 3-6 months interval as per Fleischner Society guidelines. 4. No abdominal mass. 5. No ascites. 6. No free air. 7. Chronic and/or ancillary findings as described above. XY CHEST PORTABLE, FINDINGS: Lines and tubes: None Cardiomediastinal silhouette: normal Pulmonary vasculature: normal Lung expansion: low Lung airspace: normal Lung interstitium: normal Pleura: normal Pneumothorax: no Bones: Unremarkable Other: no IMPRESSION: No acute intrathoracic abnormality. Assessment/Plan Assessment/Plan Assessment: Esophagitis, Enteritis, Possible esophageal stricture, Pulmonary nodules, ETOH dependance, Hypertension, Hyperlipemia, Atrial fibrillation, Rheumatoid arthritis, Anxiety, Peptic ulcer, Plan: Admit to Med-Surg, GI consult, IV hydration, Clear liquid diet, Tapering Librium dose, PRN Ativan, Breathing treatments as needed, Home medications reconciled, Plan discussed with: Patient My Orders Orders - KATHIA AHUMADA GIRL FRIDAY Procedure Category Date Status Time Admit ADMIT 05/07/24 Transmitted 11:46 Code Status CODE 05/07/24 Transmitted 11:46 Hydrocodone-Acet PHA 05/07/24 Transmitted 5/325mg Tab ([place] 12:00 Ondansetron Hcl PHA 05/07/24 Transmitted (Zofran) 12:00 Docusate Sodium PHA 05/07/24 Transmitted Capsule (Colace 12:00 Complete Blood Count LAB 05/08/24 Verified 04:00 Comprehensive LAB 05/08/24 Verified Metabolic Panel 04:00 Condition: Serious JIL 05/07/24 Transmitted 11:46 Acetaminophen Tablet PHA 05/07/24 Transmitted (Tylenol Tablet) 12:00 Clear Liq Diet DIET 05/07/24 Transmitted Lunch Nitroglycerin PHA 05/07/24 Transmitted Sublingual (Ntrostat 12:00 Morphine Sulfate PHA 05/07/24 Transmitted Injection 12:00 Stat Ekg For Chest JIL 05/07/24 Transmitted Pain 11:46 Notify Md Of Changes JIL 05/07/24 Transmitted From Base 11:46 Certified Credit Counselor For JIL 05/07/24 Transmitted 24 Hours 11:46 Emergency Dysrhythmia [facility] 05/07/24 Transmitted Protocol 11:46 Rhythm Strips Once JIL 05/07/24 Transmitted Every Shift 11:46 Oxygen By Nasal RT 05/07/24 Transmitted Cannula 11:46 * Gi Dvh [employer] CONS 05/07/24 Transmitted 11:46 NS PHA 05/07/24 Transmitted 12:00 Date of Service: May 07, 2024 Billing Provider: KATHIA AHUMADA Common Visit Codes: [id number] INP/OBS CARE (MOD) KATHIA AHUMADA May 07, 2024 12:38
[2024-05-07] MEDS: GABAPENTIN 100 MG CAP PO SCH (14:43)
[2024-05-07] MEDS: SODIUM CHLORIDE 0.9% 1,000 ML IV ONE (14:43)
[2024-05-07] MEDS: chlordiazePOXIDE HCL 25 MG CAP PO SCH (14:43)
[2024-05-07 14:45] VITALS: RESP 20; O2SAT 98
[2024-05-07] MEDS: SUCRALFATE 1 GM/10 ML ORAL SUSP PO SCH (19:04)
[2024-05-07] MEDS: QUEtiapine FUMARATE 100 MG TAB PO SCH (22:55)
[2024-05-07] MEDS: APIXABAN 5 MG TAB PO SCH (22:55)
[2024-05-07] MEDS: predniSONE 5 MG TAB PO SCH (22:55)
[2024-05-07] MEDS: ATENOLOL 25 MG TAB PO SCH (22:56)
[2024-05-07] MEDS: PANTOPRAZOLE 40 MG/10 ML VIAL INJ IV SCH (22:57)
[2024-05-07 23:58] VITALS: BP 157/92; PULSE 90; PULSE 97; RESP 18; RESP 19; TEMP 98.2; O2SAT 97; O2SAT 98
[2024-05-08] VITALS (9 sets, daily range): BP systolic 112–155; BP diastolic 64–85; PULSE 67–90; RESP 18–19; TEMP 97.9–98.3; O2SAT 96–98
[2024-05-08] MEDS: Fenofibrate 160 MG TABLET PO SCH (06:00)
[2024-05-08 07:54] LABS: Basophils # (auto) 0 10 ^3/uL (0-0.2); Basophils % (auto) 0.3 % (0.0-2.0); Eosinophils # (auto) 0 10 ^3/uL (0-0.8); Eosinophils % (auto) 0.5 % (0.0-7.0); Hematocrit 42.3 % (41.0-53.0); Lymphocytes # (auto) 1.1 10 ^3/uL (0.4-5.4); Lymphocytes % (auto) 13.2 % (10.0-50.0); Mean Corpuscular Hemoglobin 28.4 pg (28.0-32.0); Mean Corpuscular Hgb Conc. 33.1 g/dL (32.0-36.0); Mean Corpuscular Volume 85.9 fL (80.0-100.0); Monocytes # (auto) 0.5 10 ^3/uL (0-1.3); Neutrophils # (auto) 6.9 10 ^3/uL (1.6-8.6); Nucleated Red Blood Cells % 0.1 %; Platelet Count (auto) 222 10^3/uL (140-450); Red Blood Cells 4.93 10^6/uL (4.5-5.90); Red Cell Distribution Width 18.2 % (11.8-14.3); White Blood Cell 8.6 10^3/uL (4.4-10.8)
[2024-05-08 08:19] LABS: Alkaline Phosphatase 92 U/L (46-116); Anion Gap 9 (5-15); Calcium 9.1 mg/dL (8.7-10.4); Carbon Dioxide 21 mmol/L (20-31); Chloride 100 mmol/L (98-107); Potassium 4.7 mmol/L (3.5-5.1)
[2024-05-08 08:20] LABS: BUN/Creatinine Ratio 7.7 (10.0-20.0); Total Protein 6.4 g/dL (5.7-8.2)
[2024-05-08 08:21] LABS: Albumin 3.7 g/dL (3.2-4.8)
[2024-05-08 08:22] LABS: Bilirubin, Total 1.1 mg/dL (0.2-1.0)
[2024-05-08 08:32] LABS: Alanine Aminotransferase 66 U/L (7-40); Aspartate Aminotransferase 94 U/L (13-40); Blood Urea Nitrogen 7 mg/dL (9-23); Glucose 111 mg/dL (74-106); Sodium 130 mmol/L (136-145)
[2024-05-08] MEDS: FOLIC ACID 1 MG in D5W 5% 50 ML INJ ONE (09:00)
[2024-05-08 09:24] LABS: Magnesium 2.5 mg/dL (1.6-2.6)
[2024-05-08 09:32] LABS: INR 1.12 (0.9-1.15); Partial Thromboplastin Time 28.4 SEC (24.5-34.5); Prothrombin Time 11.7 sec (9.3-11.8)
[2024-05-08] MEDS ORDERED: CHOLECALCIFEROL (VITD3) 1,000UNIT=25mCg TAB PO SCH (10:00)
[2024-05-08] MEDS: LISINOPRIL 20 MG TAB PO SCH (10:39)
[2024-05-08] MEDS: FOLIC ACID 1 MG TAB PO SCH (10:39)
[2024-05-08] MEDS: CITALOPRAM HYDROBR 20 MG TAB PO SCH (10:40)
[2024-05-08] MEDS: THIAMINE HCL 100 MG TAB PO SCH (10:40)
[2024-05-08] MEDS: THIAMINE 100mg/ml INJ (200mg/2ml VIAL) IV ONE (11:06)
--- NOTE | 2024-05-08 12:23 | DVHINCON2 ---
GI Consult Consult Note GI consult note Date of Consultation: 04/1924 Chief Complaint: Possible esophageal stricture Referring Physician: Andrea OCHOA H&P: 68-year-old male with PMH of CAD status post PCI, , HTN hyperlipidemia, AFib, alcohol abuse, anxiety, arthritis and ulcers presents to ER with abdominal pain and difficulty swallowing Patient admits to difficulty swallowing on and off with solids liquids and medications, worse in the last two weeks. At this time patient is able to tolerate his liquid diet No nausea or vomiting. No hematemesis. Denies weight loss. No melena or red blood in stool Patient admits to heavy alcohol use about 18 beers every day Patient also on Eliquis, but has been noncompliant due to dysphagia. Last dose in the hospital this a.m. Status post EGD 03/08/2024 DATE OF OPERATION: 03/08/24 PROCEDURE: Upper Endoscopy with biopsy PREOPERATIVE INDICATION: The patient is a 68 -year-old male undergoing endoscopy for upper GI bleed POSTOPERATIVE DIAGNOSES: 1. 3 cm sliding-type hiatal hernia with severe grade C erosive esophagitis with underlying Barretts esophagus extending throughout the length of the esophagus There were two punched ulcers in the distal esophagus and linear ulcers extending throughout the length of the esophagus 2. Mild gastroduodenitis with erosions otherwise normal examination up to the 2nd and 3rd part of the duodenum with no fresh or old blood in the 3. There was a submucosal prominence in the distal body of the stomach from which biopsies were obtained Pathology acquired and confirms Barretts esophagus, added to chart Past Medical History: Cardiovascular: AFIB, CAD, HTN, hyperipidemia Psych: Anxiety Musculoskeletal: Other (rheumatoid arthrtis) Past Surgical History: Right leg surgery Social History: NO smoking, heavy drinking ETOH Family History: Noncontributory Review of Systems: Constitutional: no fever, chill, weight loss Heart: no chest pain, no chest pressure Lung: no cough, no dyspnea with exertion Abdomen: see HPI Physical exam: General: NAD, AAOX3 Chest: lung guallpa clear to auscultation Heart: RRR, no murmur Abdomen: Moderate-distended, no tenderness to palpation, +BS Labs: Labs Test 05/08/24 06:28 05/07/24 09:08 05/07/24 08:15 Range/Units White Blood Count 8.6 4.4-10.8 10^3/uL Red Blood Count 4.93 4.5-5.90 10^6/uL Hemoglobin 14.0 13.5-17.5 g/dL Hematocrit 42.3 41.0-53.0 % Mean Corpuscular Volume 85.9 80.0-100.0 fL Mean Corpuscular Hemoglobin 28.4 28.0-32.0 pg Mean Corpuscular Hemoglobin Concent 33.1 32.0-36.0 g/dL Red Cell Distribution Width 18.2 H 11.8-14.3 % Platelet Count 222 140-450 10^3/uL Mean Platelet Volume 6.8 L 6.9-10.8 fL Neutrophils (%) (Auto) 80.0 37.0-80.0 % Lymphocytes (%) (Auto) 13.2 10.0-50.0 % Monocytes (%) (Auto) 6.0 0.0-12.0 % Eosinophils (%) (Auto) 0.5 0.0-7.0 % Basophils (%) (Auto) 0.3 0.0-2.0 % Neutrophils # (Auto) 6.9 1.6-8.6 10 ^3/uL Lymphocytes # (Auto) 1.1 0.4-5.4 10 ^3/uL Monocytes # (Auto) 0.5 0-1.3 10 ^3/uL Eosinophils # (Auto) 0 0-0.8 10 ^3/uL Basophils # (Auto) 0 0-0.2 10 ^3/uL Nucleated Red Blood Cells 0.1 % Prothrombin Time 11.7 9.3-11.8 sec Prothrombin Time INR 1.12 0.9-1.15 Activated Partial Thromboplast Time 28.4 24.5-34.5 SEC Sodium Level 130 #L 136-145 mmol/L Potassium Level 4.7 3.5-5.1 mmol/L Chloride Level 100 98-107 mmol/L Carbon Dioxide Level 21 20-31 mmol/L Anion Gap 9 5-15 Blood Urea Nitrogen 7 L 9-23 mg/dL Creatinine 0.91 0.700-1.30 mg/dL Glomerular Filtration Rate Calc 91 >90 mL/min BUN/Creatinine Ratio 7.7 L 10.0-20.0 Serum Glucose 111 H 74-106 mg/dL Calcium Level 9.1 8.7-10.4 mg/dL Phosphorus Level 4.0 2.4-5.1 mg/dL Magnesium Level 2.5 1.6-2.6 mg/dL Total Bilirubin 1.1 H 0.2-1.0 mg/dL Aspartate Amino Transferase (AST) 94 H 13-40 U/L Alanine Aminotransferase (ALT) 66 H 7-40 U/L Alkaline Phosphatase 92 46-116 U/L Total Protein 6.4 5.7-8.2 g/dL Albumin 3.7 3.2-4.8 g/dL Troponin I High Sensitivity 4 </=54 ng/L B-Type Natriuretic Peptide 40.43 0-100 pg/mL Imaging: CT chest abdomen and pelvis 03/06/2024 IMPRESSION: 1. Circumferential long segment edematous wall thickening of the thoracic esophagus (thickness up to approximately 5.5 mm) with fluid and air-filled distended lumen (transverse luminal diameter up to approximately 19 mm), infective/inflammatory etiology, esophagitis. Periesophageal mediastinal fat stranding noted around the middle one third of the thoracic esophagus. 2. Fluid-filled, distended (diameter up to approximately 3.5 cm) jejunal and distal duodenal bowel loops, likely infective/inflammatory etiology, enteritis. Advised clinicopathological correlation. 3. Few ground-glass pulmonary nodules with sizes ranging from 2 mm to 7 mm scattered in both lungs, largest of approximate size 7 mm in the right lower pulmonary lobe. Advised follow-up CT at 3-6 months interval as per Fleischner Society guidelines. 4. No abdominal mass. 5. No ascites. 6. No free air. 7. Chronic and/or ancillary findings as described above. Pulmonary nodule follow-up protocol: As per the Fleischner Society Guidelines (2017). SOLID NODULES Single or Multiple nodules: Assessment: Dysphagia Barretts esophagus Alcohol abuse Plan: -discussed with Dr. Mendoza UGI Continue Protonix and Carafate Hold Eliquis Possible plan if needed for EGD for this Monday We will continue to monitor the patient Discussed plan with patient and RN Thank you for this consult Date of Service: May 08, 2024 Billing Provider: GLORIA PRICE Common Visit Codes: CONSULT ONLY Consultation Codes: [id number] CONSULT <60MIN GLORIA PRICE May 08, 2024 12:23
[2024-05-08] MEDS: SUCRALFATE 1 GM/10 ML ORAL SUSP PO SCH (13:41)
--- NOTE | 2024-05-08 16:59 | DVHPNRES ---
Progress Note Date Seen: May 08, 2024 Resident Creating Document: FRANKIE GREGORYMARY RESIDENT Medical Necessity Reason Pt with a Central, PICC or Fol: No Subjective Review of Systems Patient is a 68-year-old male with a past medical history of coronary artery disease status post PCI, hypertension, hyperlipidemia, atrial fibrillation, anxiety, arthritis presented to the ER with a chief complaint of difficulty swallowing for the past 2 weeks. Patient was admitted to the hospital with similar complaint 2 months ago in February following which he underwent EGD which showed 3 cm hiatal hernia with severe grade C esophagitis with underlying Velez's esophagus extending throughout the length of the esophagus, to punched ulcers in the distal esophagus and linear ulcer throughout the length of the esophagus, mild gastroduodenitis with a erosions. Patient was placed on Protonix and Carafate and advised to follow up with the GI outpatient clinic for further management. Patient was a chronic alcoholic and recently has been consuming a pack of 12 beers every day. Patient reported that about 2 weeks ago he again started to have symptoms of difficulty swallowing started with solid foods and progressed to semisolids. Patient reports that the last couple of days he was not able to eat and not able to take his medications following which he called the EMS and was brought to the ED for further evaluation. Patient did not have any episode of hematemesis or melena. Patient denied shortness of breath, chest pain, diarrhea, fever or chills. Patient reports that his last drink was in the morning before he called the EMS. Past medical history: As per HPI Past surgical history: Right leg surgery, EGD Social history: Patient lives alone and reportedly consumes 12 beers a day but denies smoking or other illegal drug use Medications: Eliquis 5 mg b.i.d., atenolol 50 mg b.i.d., escitalopram 10 mg, lisinopril 40 mg, metoprolol succinate 25 mg, quetiapine 100 mg Review of systems Patient seen and examined at the bedside in the morning Able to tolerate clear liquid diet and medications crushed in the diet Denies nausea, vomiting, diarrhea, constipation Denies hematemesis or melena Denies shortness of breath, chest pain Objective vital signs Vital Sign Date Time Temp Pulse Resp B/P (MAP) Pulse Ox O2 Delivery O2 Flow Rate FiO2 05/08/24 12:30 98.3 69 19 119/76 (90) 97 98.3 05/08/24 07:58 Room Air* 0 21 Total Intake and Output 05/07/24 05/07/24 05/08/24 15:00 23:00 07:00 Intake Total 1750 ml 0 ml Balance 1750 ml 0 ml medications Current Medications Medications Dose Ordered Sig/Arthur Route Start Time Stop Time Status Last Admin Dose Admin Gabapentin 100 mg TID PO 05/07/24 14:00 05/08/24 13:41 100 MG Prednisone 5 mg BID PO 05/07/24 22:00 05/08/24 10:39 5 MG Citalopram Hydrobromide 20 mg DAILY PO 05/08/24 10:00 05/08/24 10:40 20 MG Quetiapine Fumarate 100 mg HS PO 05/07/24 22:00 05/07/24 22:55 100 MG Atenolol 50 mg BID PO 05/07/24 22:00 05/08/24 10:53 50 MG Lisinopril 40 mg DAILY PO 05/08/24 10:00 05/08/24 10:39 40 MG Thiamine HCl 100 mg DAILY PO 05/08/24 10:00 05/08/24 10:40 100 MG Folic Acid 1 mg DAILY PO 05/08/24 10:00 05/08/24 10:39 1 MG Ondansetron HCl 4 mg Q4HP PRN IV 05/07/24 12:15 Acetaminophen 650 mg Q6HP PRN PO 05/07/24 12:15 Nitroglycerin 0.4 mg Q5MINP PRN SL 05/07/24 12:15 Chlordiazepoxide HCl 50 mg Q12HR PO 05/08/24 22:00 05/09/24 10:01 Chlordiazepoxide HCl 25 mg Q12HR PO 05/09/24 22:00 05/10/24 10:01 Chlordiazepoxide HCl 25 mg QAM PO 05/11/24 07:00 05/11/24 07:01 Pantoprazole Sodium 40 mg BID IV 05/07/24 22:00 05/08/24 10:52 40 MG Sucralfate 1 gm QID PO 05/08/24 12:00 05/08/24 13:41 1 GM Enoxaparin Sodium 120 mg Q12HR SC 05/08/24 22:00 UNV Enteral Nutritional Formula 240 ml BIDWM PO 05/08/24 18:00 UNV Examination Constitutional: Patient was alert and oriented to time place and person and appears to be in mild distress being in alcohol withdrawal Gen - no pallor, no icterus, no cyanosis, no clubbing, no LAD, no edema . Skin - Patients skin is warm and dry.. HEENT - normocephalic, atraumatic, moist mucous membranes. Neck - full ROM, no LAD, no JVD Pulmonary - B/L equal air entry, no crackles , no wheezing, no stridor. cardiovascular -variable S1,S2 heard. no murmurs heard. peripheral pulses normal radial 2+, pedal 2+. GI - soft abdomen without tenderness to palpation. no hepatospleenomegaly. Bowel sounds normoactive Neurological - Bilateral upper extremity strength 5/5, bilateral lower extremity strength 5/5, no facial droop, normal speech, no tremor, no sensory deficiets. laboratory and microbiology Laboratory Tests 05/08/24 06:28 Test 05/08/24 06:28 Range/Units Serum Glucose 111 H 74-106 mg/dL Problem List/Assessment/Plan Problem List/Assessment/Plan # dysphagia likely due to esophageal ulcers with a possible stricture # H/o Barretts esophagus # h/o esophageal ulcers # dyspepsia # H/o gastroduodenitis - patient on clear liquid diet - Protonix 40 mg b.i.d. IV - Carafate 1 g p.o. q.i.d. - GI evaluation done who recommended that the patient will possibly get upper endoscopy on Monday - ensure protein # alcohol withdrawal - CIWA score in the morning 11 - patient on chlordiazepoxide - given thiamine, folic acid - on telemetry - continue monitoring # paroxysmal atrial fibrillation - patient on atenolol at home which is continued - Eliquis held , started on enoxaparin 120 mg sc b.i.d. # hypertensive heart disease with systolic versus diastolic heart failure - previous echo in 2022 shows LVEF 35% - patient does not have any signs of fluid overload at present, no oxygen requirement - continued on home medication lisinopril 40 mg Goals of care discussed with the patient for over 25 minutes. Full code Plan discussed with Dr. Dustin Caro discussed with: Patient My Orders My Orders Orders - VANDANA GREGORY RESIDENT Procedure Category Date Status Time Sucralfate Susp PHA 05/08/24 In Process (Carafate Susp) 12:00 Enoxaparin Sodium PHA 05/08/24 Logged (Lovenox) 22:00 Nutritional PHA 05/08/24 Logged Supplements (Ensure 18:00 Dietary Evaluation Review Comments: Advance diet to texture as tolerated when GI is accessible. Avoid alcohol. Encourage pt to be on alcoholic elidia program after D/C. Expected Outcomes/Goals: normalized GI function, normalized life style. Date of Service: May 08, 2024 Billing Provider: HENNY SOLARES MD Common Visit Codes: [id number] INP/OBS CARE(HIGH) VANDANA GREGORY RESIDENT May 08, 2024 16:59 HENNY SOLARES MD May 09, 2024 08:43
[2024-05-08] MEDS: Ensure Enlive Strawberry 8oz Bottle PO SCH (17:55)
[2024-05-08] MEDS: ENOXAPARIN SOD 120 MG/0.8 ML SYRINGE SC SCH (21:42)
[2024-05-08] MEDS: chlordiazePOXIDE HCL 25 MG CAP PO SCH (21:44)
[2024-05-09] VITALS (8 sets, daily range): BP systolic 95–130; BP diastolic 52–70; PULSE 62–81; RESP 17–20; TEMP 97.4–99; O2SAT 95–100
[2024-05-09 06:33] LABS: Basophils # (auto) 0 10 ^3/uL (0-0.2); Basophils % (auto) 0.4 % (0.0-2.0); Eosinophils # (auto) 0.2 10 ^3/uL (0-0.8); Hematocrit 38.9 % (41.0-53.0); Hemoglobin 12.9 g/dL (13.5-17.5); Lymphocytes # (auto) 1.6 10 ^3/uL (0.4-5.4); Lymphocytes % (auto) 24.2 % (10.0-50.0); Mean Corpuscular Hemoglobin 28.6 pg (28.0-32.0); Mean Corpuscular Hgb Conc. 33.2 g/dL (32.0-36.0); Mean Corpuscular Volume 86.3 fL (80.0-100.0); Monocytes # (auto) 0.4 10 ^3/uL (0-1.3); Monocytes % (auto) 5.9 % (0.0-12.0); Neutrophils # (auto) 4.5 10 ^3/uL (1.6-8.6); Neutrophils % (auto) 66.5 % (37.0-80.0); Nucleated Red Blood Cells % 0.1 %; Platelet Count (auto) 202 10^3/uL (140-450); Red Blood Cells 4.51 10^6/uL (4.5-5.90); Red Cell Distribution Width 18.4 % (11.8-14.3); White Blood Cell 6.8 10^3/uL (4.4-10.8)
[2024-05-09 06:49] LABS: Anion Gap 10 (5-15); Carbon Dioxide 21 mmol/L (20-31); Chloride 101 mmol/L (98-107); Potassium 3.6 mmol/L (3.5-5.1)
[2024-05-09 06:56] LABS: BUN/Creatinine Ratio 9.2 (10.0-20.0)
[2024-05-09 07:04] LABS: Blood Urea Nitrogen 9 mg/dL (9-23); Glucose 118 mg/dL (74-106); Sodium 132 mmol/L (136-145)
[2024-05-09] MEDS: GASTROGRAFIN 120 ML SOL ONE (09:32)
[2024-05-09] MEDS: EZ-GAS II GRANULES (RADIOLOGY USE) PO ONE (09:33)
--- NOTE | 2024-05-09 10:24 | DVH ---
XY ESOPHAGUS GASTROGRAFIN SWALLOW, HISTORY: DYSPHAGIA COMPARISON: None PROCEDURE: A pricing clerk radiograph was obtained prior to the procedure. Gastrografin administered orally, and radiographs were obtained under intermittent fluoroscopic observation. Total fluoroscopic time w as 0.3 minutes. DAP 102 FINDINGS: The esophagus was normal in caliber with no stricture, filling defect or wall irregularity demonstrat ed. Normal esophageal peristalsis was observed. Mild esophageal reflux was demonstrated during this exam . IMPRESSION: Mild esophageal reflux, otherwise unremarkable esophagram.
--- NOTE | 2024-05-09 12:35 | DVHPN2 ---
Subjective No changes Changes from previous H/P or p: No Changes Eyes: No Pain, No Vision change, No Conjunctivae inflammation, No Eyelid inflammation, No Other, No Redness ENT: No Ear pain, No Ear discharge, No Nose pain, No Nose discharge, No Nose congestion, No Mouth pain, No Mouth swelling, No Throat pain; Throat swelling, O ther (difficulty swallowing) Cardiovascular: No Chest Pain, No Palpitations, No Orthopnea, No Paroxysmal Noc. Dyspnea, No Edema, No Lt Headedness, No Other Respiratory: No Cough, No Dry, No Shortness of breath, No SOB with excertion, No Wheezing, No Hemoptysis, No Pleuritic Pain, No Sputum, No Other Gastrointestinal: No Nausea, No Vomiting; Abdominal Pain; No Diarrhea, No Constipation, No Melena, No Hematochezia, No Other Genitourinary: No Dysuria, No Frequency, No Incontinence, No Hematuria, No Retention, No Other Musculoskeletal: No other, No neck pain, No shoulder pain, No arm pain, No back pain, No hand pain, No leg pain, No foot pain Skin: No Rash, No Lesions, No Jaundice, No Bruising, No Other Objective Vitals Vital Signs Date Time Temp Pulse Resp B/P (MAP) Pulse Ox O2 Delivery O2 Flow Rate FiO2 05/09/24 10:00 95/66 05/09/24 10:00 66 05/09/24 08:50 97.4 18 97 97.4 05/08/24 20:00 Room Air* 0 21 Intake/Output Intake and Output 05/09/24 07:00 Intake Total 2414 ml Balance 2414 ml Intake Oral 2414 ml # Voids 4 # Bowel Movements 3 General Appearance: Alert, Oriented X3, Cooperative, No acute distress, mild distress, moderate distress, severe distress, Other Lungs: Clear to auscultation, Normal air movement, Other Cardiovascular: Regular rate, Normal S1, Normal S2, No murmurs, Gallops, Rubs, Other Abdomen: Normal bowel sounds, Soft, No tenderness, No hepatospenomegaly, No masses, Other Medications Current Medications Medications Dose Ordered Sig/Arthur Route Start Time Stop Time Status Last Admin Dose Admin Gabapentin 100 mg TID PO 05/07/24 14:00 05/09/24 05:08 100 MG Prednisone 5 mg BID PO 05/07/24 22:00 05/09/24 10:40 5 MG Citalopram Hydrobromide 20 mg DAILY PO 05/08/24 10:00 05/09/24 10:40 20 MG Quetiapine Fumarate 100 mg HS PO 05/07/24 22:00 05/08/24 21:43 100 MG Atenolol 50 mg BID PO 05/07/24 22:00 05/08/24 21:41 50 MG Lisinopril 40 mg DAILY PO 05/08/24 10:00 05/08/24 10:39 40 MG Thiamine HCl 100 mg DAILY PO 05/08/24 10:00 05/09/24 10:39 100 MG Folic Acid 1 mg DAILY PO 05/08/24 10:00 05/09/24 10:40 1 MG Ondansetron HCl 4 mg Q4HP PRN IV 05/07/24 12:15 Acetaminophen 650 mg Q6HP PRN PO 05/07/24 12:15 Nitroglycerin 0.4 mg Q5MINP PRN SL 05/07/24 12:15 Chlordiazepoxide HCl 25 mg Q12HR PO 05/09/24 22:00 05/10/24 10:01 Chlordiazepoxide HCl 25 mg QAM PO 05/11/24 07:00 05/11/24 07:01 Pantoprazole Sodium 40 mg BID IV 05/07/24 22:00 05/09/24 10:40 40 MG Sucralfate 1 gm QID PO 05/08/24 12:00 05/09/24 10:39 1 GM Enteral Nutritional Formula 240 ml BIDWM PO 05/08/24 18:00 05/09/24 08:48 240 ML Laboratory Results Laboratory Tests 05/09/24 05:13 Chemistry Test 05/09/24 05:13 Calcium Level 9.0 mg/dL (8.7-10.4) Labs and/or images reviewed: Labs reviewed by me, Image(s) reviewed by me Assessment/Plan Assessment/Plan Dysphagia Barretts esophagus Alcohol abuse Plan: Discussed with Dr. Mendoza Plan for EGD tomorrow 05/10/2024. Discussed risks, benefits and alternatives of procedure and sedation, patient understands and agrees Plan discussed with: Patient (RN) My Orders Orders - GLORIA PRICE Procedure Category Date Status Time Esophagus XY 3/20/25 Resulted Gastrografin Swallow 09:32 Obtain Consent For: ORDERS 05/09/24 Verified 12:32 Obtain Consent For JIL 05/09/24 Verified Anesthesia 12:32 Npo After Midnight ORDERS 05/09/24 Verified Npo (Nothing By DIET 05/09/24 Verified Mouth) Diet Dinner Date of Service: May 09, 2024 Billing Provider: GLORIA PRICE Common Visit Codes: [id number] INP/OBS CARE(HIGH) GLORIA PRICE May 09, 2024 12:35
--- NOTE | 2024-05-09 17:30 | DVHPNRES ---
Progress Note Date Seen: May 09, 2024 Resident Creating Document: JHAJJVANDANA RESIDENT Medical Necessity Reason Pt with a Central, PICC or Fol: No Subjective Review of Systems Patient seen and examined at the bedside in the morning Able to tolerate clear liquid diet and medications crushed in the diet Denies nausea, vomiting, diarrhea, constipation Denies hematemesis or melena Denies shortness of breath, chest pain Objective vital signs Vital Sign Date Time Temp Pulse Resp B/P (MAP) Pulse Ox O2 Delivery O2 Flow Rate FiO2 05/09/24 13:00 99.0 63 18 104/52 (69) 98 99.0 05/09/24 08:00 Room Air* 0 21 Total Intake and Output 05/08/24 05/08/24 05/09/24 15:00 23:00 07:00 Intake Total 1514 ml 900 ml Balance 1514 ml 900 ml medications Current Medications Medications Dose Ordered Sig/Arthur Route Start Time Stop Time Status Last Admin Dose Admin Gabapentin 100 mg TID PO 05/07/24 14:00 05/09/24 14:42 100 MG Prednisone 5 mg BID PO 05/07/24 22:00 05/09/24 10:40 5 MG Citalopram Hydrobromide 20 mg DAILY PO 05/08/24 10:00 05/09/24 10:40 20 MG Quetiapine Fumarate 100 mg HS PO 05/07/24 22:00 05/08/24 21:43 100 MG Atenolol 50 mg BID PO 05/07/24 22:00 05/08/24 21:41 50 MG Lisinopril 40 mg DAILY PO 05/08/24 10:00 05/08/24 10:39 40 MG Thiamine HCl 100 mg DAILY PO 05/08/24 10:00 05/09/24 10:39 100 MG Folic Acid 1 mg DAILY PO 05/08/24 10:00 05/09/24 10:40 1 MG Ondansetron HCl 4 mg Q4HP PRN IV 05/07/24 12:15 Acetaminophen 650 mg Q6HP PRN PO 05/07/24 12:15 Nitroglycerin 0.4 mg Q5MINP PRN SL 05/07/24 12:15 Chlordiazepoxide HCl 25 mg Q12HR PO 05/09/24 22:00 05/10/24 10:01 Chlordiazepoxide HCl 25 mg QAM PO 05/11/24 07:00 05/11/24 07:01 Pantoprazole Sodium 40 mg BID IV 05/07/24 22:00 05/09/24 10:40 40 MG Sucralfate 1 gm QID PO 05/08/24 12:00 05/09/24 10:39 1 GM Enteral Nutritional Formula 240 ml BIDWM PO 05/08/24 18:00 05/09/24 08:48 240 ML Examination Constitutional: Patient was alert and oriented to time place and person and appears to be in mild distress being in alcohol withdrawal Gen - no pallor, no icterus, no cyanosis, no clubbing, no LAD, no edema . Skin - Patients skin is warm and dry.. HEENT - normocephalic, atraumatic, moist mucous membranes. Neck - full ROM, no LAD, no JVD Pulmonary - B/L equal air entry, no crackles , no wheezing, no stridor. cardiovascular -variable S1,S2 heard. no murmurs heard. peripheral pulses normal radial 2+, pedal 2+. GI - soft abdomen without tenderness to palpation. no hepatospleenomegaly. Bowel sounds normoactive Neurological - Bilateral upper extremity strength 5/5, bilateral lower extremity strength 5/5, no facial droop, normal speech, no tremor, no sensory deficiets. laboratory and microbiology Laboratory Tests 05/09/24 05:13 Test 05/09/24 05:13 Range/Units Serum Glucose 118 H 74-106 mg/dL Problem List/Assessment/Plan Problem List/Assessment/Plan # dysphagia likely due to esophageal ulcers with a possible stricture # H/o Barretts esophagus # h/o esophageal ulcers # dyspepsia # H/o gastroduodenitis - patient on clear liquid diet - Protonix 40 mg b.i.d. IV - Carafate 1 g p.o. q.i.d. - esophagus Gastrografin solid showed mild esophageal reflux, no stricture, filling defect or wall irregularity - GI evaluation done who recommended that the patient will possibly get upper endoscopy on Monday - ensure protein # alcohol withdrawal - CIWA score in the morning 10 - patient on chlordiazepoxide - given thiamine, folic acid - on telemetry - continue monitoring # paroxysmal atrial fibrillation - patient on atenolol at home which is continued - Eliquis held - enoxaparin held today as patient was going for EGD tomorrow # hypertensive heart disease with systolic versus diastolic heart failure - previous echo in 2022 shows LVEF 35% - patient does not have any signs of fluid overload at present, no oxygen requirement - continued on home medication lisinopril 40 mg Goals of care discussed with the patient for over 25 minutes. Full code Plan discussed with Dr. Solares Plan discussed with: Patient Dietary Evaluation Review Comments: Advance diet to texture as tolerated when GI is accessible. Avoid alcohol. Encourage pt to be on alcoholic elidia program after D/C. Expected Outcomes/Goals: normalized GI function, normalized life style. Date of Service: May 09, 2024 Billing Provider: HENNY SOLARES MD Common Visit Codes: [id number] INP/OBS CARE(HIGH) VANDANA GREGORY RESIDENT May 09, 2024 17:30 HENNY SOLARES MD May 10, 2024 12:05
[2024-05-09] MEDS: chlordiazePOXIDE HCL 25 MG CAP PO SCH (21:45)
[2024-05-10] VITALS (9 sets, daily range): BP systolic 91–127; BP diastolic 52–77; PULSE 56–74; RESP 17–22; TEMP 97–97.8; O2SAT 94–98
[2024-05-10 05:14] LABS: Basophils # (auto) 0 10 ^3/uL (0-0.2); Basophils % (auto) 0.5 % (0.0-2.0); Eosinophils # (auto) 0.5 10 ^3/uL (0-0.8); Eosinophils % (auto) 6.9 % (0.0-7.0); Hematocrit 38.9 % (41.0-53.0); Hemoglobin 13.2 g/dL (13.5-17.5); Lymphocytes # (auto) 2.4 10 ^3/uL (0.4-5.4); Lymphocytes % (auto) 31.1 % (10.0-50.0); Mean Corpuscular Hemoglobin 29.4 pg (28.0-32.0); Mean Corpuscular Hgb Conc. 33.8 g/dL (32.0-36.0); Mean Corpuscular Volume 86.8 fL (80.0-100.0); Monocytes # (auto) 0.6 10 ^3/uL (0-1.3); Monocytes % (auto) 7.7 % (0.0-12.0); Neutrophils # (auto) 4.1 10 ^3/uL (1.6-8.6); Neutrophils % (auto) 53.8 % (37.0-80.0); Nucleated Red Blood Cells % 0.1 %; Platelet Count (auto) 207 10^3/uL (140-450); Red Blood Cells 4.48 10^6/uL (4.5-5.90); White Blood Cell 7.7 10^3/uL (4.4-10.8)
[2024-05-10 05:27] LABS: Anion Gap 7 (5-15); Carbon Dioxide 22 mmol/L (20-31); Chloride 104 mmol/L (98-107)
[2024-05-10 05:29] LABS: Calcium 8.8 mg/dL (8.7-10.4)
[2024-05-10 05:33] LABS: Glucose 75 mg/dL (74-106); Sodium 133 mmol/L (136-145)
[2024-05-10 05:34] LABS: BUN/Creatinine Ratio 6.4 (10.0-20.0); Blood Urea Nitrogen 6 mg/dL (9-23)
[2024-05-10] MEDS ORDERED: MIDAZOLAM HCL 2MG/2ML 2ml VIAL (1mg/ml) ONE (12:07)
[2024-05-10] MEDS ORDERED: KETAMINE 50mg/ML 1ml syringe ONE (12:07)
[2024-05-10] MEDS ORDERED: GLYCOPYRROLATE 0.2 MG/ML 1ML VIAL ONE (12:08)
[2024-05-10] MEDS ORDERED: PROPOFOL 10 MG/ML 20 ML IV ONE ×2 (12:08→14:20)
[2024-05-10] MEDS ORDERED: ONDANSETRON HCL 4 MG/2 ML VIAL ONE (12:08)
[2024-05-10] MEDS ORDERED: KETOROLAC TROMETH 30 MG/ML 1ML VIAL ONE (12:08)
[2024-05-10] MEDS ORDERED: fentaNYL CITRATE 100 MCG/2 ML VL ONE ×2 (12:53→14:20)
--- NOTE | 2024-05-10 14:44 | DVHOP2 ---
Operative Report DATE OF OPERATION: 05/10/24 PROCEDURE: Upper Endoscopy with biopsy. PREOPERATIVE INDICATION: The patient is a 68 -year-old male undergoing endoscopy for oropharyngeal dysphagia and history of severe esophagitis POSTOPERATIVE DIAGNOSES: 1. Patient had a 4 cm sliding-type hiatal hernia with evidence of Velez's esophagitis and circumferential and linear ulceration extending throughout the length of the esophagus with slight narrowing in the mid esophagus in the area of the extensive ulceration and multiple biopsies were obtained 2. There was evidence of mild candidal esophagitis in the proximal esophagus 3. Mild gastritis otherwise normal examination up to the 2nd and 3rd part of the duodenum PROCEDURE PERFORMED BY: Nolan Mendoza GI NURSE: Reji SCOPE: Olympus videoendoscope. ASA CLASS: 3. PREOPERATIVE MEDICATIONS: Dr. Summer Corey PROCEDURE IN DETAIL: After obtaining an informed consent, the patient was placed on left lateral decubitus position. The patient was then sedated with the above medications. A bite block was placed between his teeth. The endoscope was then passed through the oropharynx, into the esophagus, and through the stomach and pylorus up to the second and third part of the duodenum. The endoscope was then withdrawn. The 2nd and 3rd part of the duodenum and the duodenal bulb were normal. Duodenal biopsies were obtained The pre-pyloric area antrum and body showed mild gastritis with some hyperemia erythema. Gastric biopsies were obtained. On retroflexion and straight on view the patient had normal cardia and fundus. There was a superficial ulceration with submucosal edema in the mid gastric area from which biopsies were obtained The endoscope was then withdrawn into the distal esophagus where the patient had a 4-5 cm sliding-type hiatal hernia. This was contiguous with an area of Velez's esophagitis that was extending almost throughout the entire diet length of the esophagus with extensive ulceration both linear and circumferential more prominent in the mid esophagus with slight narrowing in this area. However at this time no dilation was felt to be safe or required. Multiple biopsies were obtained. In the proximal esophagus there was evidence of some candidal esophagitis from which biopsies were obtained The patient tolerated the procedure well without difficulty. COMPLICATIONS : None SPECIMENS: Duodenal biopsies Gastric biopsies Esophageal biopsies DISPOSITION: Transfer back to the floor Stable PLAN: 1. Await for biopsy result 2. Will place pt on Protonix 40 mg bid IV 3. Carafate suspension 1 g p.o. 4 times a day 4. Nystatin swish and swallow 5 mL p.o. three times a day 5. Start him on a full liquid diet advance slowly to pureed and then soft mechanical as tolerated 6. DC aspirin NSAIDs smoking alcohol and lifestyle modifications for GERD 7. If the patient does not improve we will consider trial of Voquenza a potassium channel blocking agent NOLAN MENDOZA MD May 10, 2024 14:44
--- NOTE | 2024-05-10 16:45 | DVHPNRES ---
Progress Note Date Seen: May 10, 2024 Resident Creating Document: JHAJJVANDANA RESIDENT Medical Necessity Reason Pt with a Central, PICC or Fol: No Subjective Review of Systems Patient seen and examined at the bedside in the morning NPO since morning for upper endoscopy in the afternoon Denies nausea, vomiting, diarrhea, constipation Denies hematemesis or melena Denies shortness of breath, chest pain Objective vital signs Vital Sign Date Time Temp Pulse Resp B/P (MAP) Pulse Ox O2 Delivery O2 Flow Rate FiO2 05/10/24 15:06 62 13 109/67 (81) 95 05/10/24 15:03 Room Air 0 95 05/10/24 14:36 98.3 98.3 Total Intake and Output 05/09/24 05/09/24 05/10/24 15:00 23:00 07:00 Intake Total 1668 ml 0 ml Output Total 1600 ml Balance 1668 ml -1600 ml medications Current Medications Medications Dose Ordered Sig/Arthur Route Start Time Stop Time Status Last Admin Dose Admin Gabapentin 100 mg TID PO 05/07/24 14:00 05/09/24 21:43 100 MG Citalopram Hydrobromide 20 mg DAILY PO 05/08/24 10:00 05/09/24 10:40 20 MG Quetiapine Fumarate 100 mg HS PO 05/07/24 22:00 05/09/24 21:46 100 MG Atenolol 50 mg BID PO 05/07/24 22:00 05/09/24 21:44 50 MG Lisinopril 40 mg DAILY PO 05/08/24 10:00 05/08/24 10:39 40 MG Thiamine HCl 100 mg DAILY PO 05/08/24 10:00 05/09/24 10:39 100 MG Folic Acid 1 mg DAILY PO 05/08/24 10:00 05/09/24 10:40 1 MG Ondansetron HCl 4 mg Q4HP PRN IV 05/07/24 12:15 Acetaminophen 650 mg Q6HP PRN PO 05/07/24 12:15 Nitroglycerin 0.4 mg Q5MINP PRN SL 05/07/24 12:15 Chlordiazepoxide HCl 25 mg QAM PO 05/11/24 07:00 05/11/24 07:01 Pantoprazole Sodium 40 mg BID IV 05/07/24 22:00 05/10/24 10:54 40 MG Sucralfate 1 gm QID PO 05/08/24 12:00 05/09/24 21:43 1 GM Enteral Nutritional Formula 240 ml BIDWM PO 05/08/24 18:00 05/09/24 08:48 240 ML Nystatin 5 ml QID MT 05/10/24 18:00 Examination Constitutional: Patient was alert and oriented to time place and person and appears to be in mild distress being in alcohol withdrawal Gen - no pallor, no icterus, no cyanosis, no clubbing, no LAD, no edema . Skin - Patients skin is warm and dry.. HEENT - normocephalic, atraumatic, moist mucous membranes. Neck - full ROM, no LAD, no JVD Pulmonary - B/L equal air entry, no crackles , no wheezing, no stridor. cardiovascular -variable S1,S2 heard. no murmurs heard. peripheral pulses normal radial 2+, pedal 2+. GI - soft abdomen without tenderness to palpation. no hepatospleenomegaly. Bowel sounds normoactive Neurological - Bilateral upper extremity strength 5/5, bilateral lower extremity strength 5/5, no facial droop, normal speech, no tremor, no sensory deficiets. laboratory and microbiology Laboratory Tests 05/10/24 04:17 Test 05/10/24 04:17 Range/Units Serum Glucose 75 74-106 mg/dL Problem List/Assessment/Plan Problem List/Assessment/Plan # dysphagia likely due to esophageal ulcers with a possible stricture # H/o Barretts esophagus # h/o esophageal ulcers # dyspepsia # H/o gastroduodenitis - patient on clear liquid diet - Protonix 40 mg b.i.d. IV - Carafate 1 g p.o. q.i.d. - esophagus Gastrografin solid showed mild esophageal reflux, no stricture, filling defect or wall irregularity - GI evaluation done - Endoscopy showed 1. Patient had a 4 cm sliding-type hiatal hernia with evidence of Velez's esophagitis and circumferential and linear ulceration extending throughout the length of the esophagus with slight narrowing in the mid esophagus in the area of the extensive ulceration and multiple biopsies were obtained 2. There was evidence of mild candidal esophagitis in the proximal esophagus 3. Mild gastritis otherwise normal examination up to the 2nd and 3rd part of the duodenum - nystatin swish and swallow - started on full liquid diet for dinner - ensure protein # alcohol withdrawal - CIWA score in the morning 10 - patient on chlordiazepoxide - given thiamine, folic acid - on telemetry - continue monitoring # paroxysmal atrial fibrillation - patient on atenolol at home which is continued - Eliquis held - enoxaparin held today as patient was going for EGD tomorrow # hypertensive heart disease with systolic versus diastolic heart failure - previous echo in 2022 shows LVEF 35% - patient does not have any signs of fluid overload at present, no oxygen requirement - continued on home medication lisinopril 40 mg Goals of care discussed with the patient for over 25 minutes. Full code Plan discussed with Dr. Solares Plan discussed with: Patient My Orders My Orders Orders - VANDANA GREGORY Procedure Category Date Status Time Enoxaparin Sodium PHA 05/11/24 In Process (Lovenox) 06:00 Dietary Evaluation Review Comments: Advance diet to texture as tolerated when GI is accessible. Avoid alcohol. Encourage pt to be on alcoholic elidia program after D/C. Expected Outcomes/Goals: normalized GI function, normalized life style. Date of Service: May 10, 2024 Billing Provider: HENNY SOLARES MD Common Visit Codes: [id number] INP/OBS CARE(HIGH) VANDANA GREGORY RESIDENT May 10, 2024 16:45 HENNY SOLARES MD May 11, 2024 20:10
[2024-05-10] MEDS: ENOXAPARIN SOD 120 MG/0.8 ML SYRINGE SC ONE (17:06)
[2024-05-10] MEDS: NYSTATIN (MOUTH-THROAT) 500,000 UNITS/5 ML SUSP MT SCH (17:07)
[2024-05-10] MEDS: ATENOLOL 25 MG TAB PO SCH (21:13)
[2024-05-11] VITALS (7 sets, daily range): BP systolic 97–119; BP diastolic 58–71; PULSE 63–87; RESP 18–20; TEMP 97.5–98; O2SAT 95–99
[2024-05-11] MEDS: ENOXAPARIN SOD 120 MG/0.8 ML SYRINGE SC SCH (05:38)
[2024-05-11 05:55] LABS: Basophils # (auto) 0 10 ^3/uL (0-0.2); Basophils % (auto) 0.8 % (0.0-2.0); Eosinophils # (auto) 0.5 10 ^3/uL (0-0.8); Eosinophils % (auto) 9.1 % (0.0-7.0); Hematocrit 40.8 % (41.0-53.0); Hemoglobin 13.4 g/dL (13.5-17.5); Lymphocytes # (auto) 2.2 10 ^3/uL (0.4-5.4); Mean Corpuscular Hemoglobin 28.6 pg (28.0-32.0); Mean Corpuscular Hgb Conc. 32.9 g/dL (32.0-36.0); Mean Corpuscular Volume 86.8 fL (80.0-100.0); Monocytes # (auto) 0.7 10 ^3/uL (0-1.3); Neutrophils # (auto) 2.5 10 ^3/uL (1.6-8.6); Neutrophils % (auto) 42.1 % (37.0-80.0); Nucleated Red Blood Cells % 0.2 %; Platelet Count (auto) 208 10^3/uL (140-450); Red Cell Distribution Width 17.9 % (11.8-14.3); White Blood Cell 5.9 10^3/uL (4.4-10.8)
[2024-05-11 06:13] LABS: Anion Gap 9 (5-15); Carbon Dioxide 22 mmol/L (20-31); Chloride 106 mmol/L (98-107); Potassium 3.7 mmol/L (3.5-5.1); Sodium 137 mmol/L (136-145)
[2024-05-11 06:15] LABS: Calcium 9.1 mg/dL (8.7-10.4)
[2024-05-11 06:19] LABS: BUN/Creatinine Ratio 6.3 (10.0-20.0); Glucose 84 mg/dL (74-106)
[2024-05-11] MEDS: chlordiazePOXIDE HCL 25 MG CAP PO SCH (06:25)
[2024-05-11 06:29] LABS: Blood Urea Nitrogen 6 mg/dL (9-23)
[2024-05-11] MEDS: clonazePAM 0.5 MG TAB PO ONE (11:52)
[2024-05-11] MEDS ORDERED: NYS5LQ MT (12:11)
[2024-05-11] MEDS ORDERED: SUCR1SUS26 PO (12:11)
[2024-05-11] MEDS ORDERED: PANT40TA2 PO (12:11)
--- NOTE | 2024-05-11 22:30 | DVHDSRES ---
Discharge Summary Date of Admission Resident Creating Document: VANDANA GREGORY RESIDENT May 07, 2024 at 11:46 Date of Discharge: May 11, 2024 Admitting Diagnosis Esophagitis, Enteritis, Possible esophageal stricture, Pulmonary nodules, ETOH dependance, Hypertension, Hyperlipemia, Atrial fibrillation, Rheumatoid arthritis, Anxiety, Peptic ulcer Wounds: none Labs/Diagnostic Data: Laboratory Results Test 05/11/24 04:34 05/08/24 06:28 05/07/24 09:08 05/07/24 08:15 White Blood Count 5.9 10^3/uL (4.4-10.8) Red Blood Count 4.70 10^6/uL (4.5-5.90) Hemoglobin 13.4 g/dL (13.5-17.5) Hematocrit 40.8 % (41.0-53.0) Mean Corpuscular Volume 86.8 fL (80.0-100.0) Mean Corpuscular Hemoglobin 28.6 pg (28.0-32.0) Mean Corpuscular Hemoglobin Concent 32.9 g/dL (32.0-36.0) Red Cell Distribution Width 17.9 % (11.8-14.3) Platelet Count 208 10^3/uL (140-450) Mean Platelet Volume 6.8 fL (6.9-10.8) Neutrophils (%) (Auto) 42.1 % (37.0-80.0) Lymphocytes (%) (Auto) 37.0 % (10.0-50.0) Monocytes (%) (Auto) 11.0 % (0.0-12.0) Eosinophils (%) (Auto) 9.1 % (0.0-7.0) Basophils (%) (Auto) 0.8 % (0.0-2.0) Neutrophils # (Auto) 2.5 10 ^3/uL (1.6-8.6) Lymphocytes # (Auto) 2.2 10 ^3/uL (0.4-5.4) Monocytes # (Auto) 0.7 10 ^3/uL (0-1.3) Eosinophils # (Auto) 0.5 10 ^3/uL (0-0.8) Basophils # (Auto) 0 10 ^3/uL (0-0.2) Nucleated Red Blood Cells 0.2 % Sodium Level 137 mmol/L (136-145) Potassium Level 3.7 mmol/L (3.5-5.1) Chloride Level 106 mmol/L (98-107) Carbon Dioxide Level 22 mmol/L (20-31) Anion Gap 9 (5-15) Blood Urea Nitrogen 6 mg/dL (9-23) Creatinine 0.96 mg/dL (0.700-1.30) Glomerular Filtration Rate Calc 86 mL/min (>90) BUN/Creatinine Ratio 6.3 (10.0-20.0) Serum Glucose 84 mg/dL (74-106) Calcium Level 9.1 mg/dL (8.7-10.4) Prothrombin Time 11.7 sec (9.3-11.8) Prothrombin Time INR 1.12 (0.9-1.15) Activated Partial Thromboplast Time 28.4 SEC (24.5-34.5) Phosphorus Level 4.0 mg/dL (2.4-5.1) Magnesium Level 2.5 mg/dL (1.6-2.6) Total Bilirubin 1.1 mg/dL (0.2-1.0) Aspartate Amino Transferase (AST) 94 U/L (13-40) Alanine Aminotransferase (ALT) 66 U/L (7-40) Alkaline Phosphatase 92 U/L (46-116) Total Protein 6.4 g/dL (5.7-8.2) Albumin 3.7 g/dL (3.2-4.8) Troponin I High Sensitivity 4 ng/L (</=54) B-Type Natriuretic Peptide 40.43 pg/mL (0-100) Other Laboratory Tests 05/11/24 04:34 Brief Hx & Hospital Course: Patient is a 68-year-old male with a past medical history of coronary artery disease status post PCI, hypertension, hyperlipidemia, atrial fibrillation, anxiety, arthritis presented to the ER with a chief complaint of difficulty swallowing for the past 2 weeks. Patient was admitted to the hospital with similar complaint 2 months ago in February following which he underwent EGD which showed 3 cm hiatal hernia with severe grade C esophagitis with underlying Velez's esophagus extending throughout the length of the esophagus, to punched ulcers in the distal esophagus and linear ulcer throughout the length of the esophagus, mild gastroduodenitis with a erosions. Patient was placed on Protonix and Carafate and advised to follow up with the GI outpatient clinic for further management. Patient was a chronic alcoholic and recently has been consuming a pack of 12 beers every day. Patient reported that about 2 weeks ago he again started to have symptoms of difficulty swallowing started with solid foods and progressed to semisolids. Patient reports that the last couple of days he was not able to eat and not able to take his medications following which he called the EMS and was brought to the ED for further evaluation. Patient did not have any episode of hematemesis or melena. Patient denied shortness of breath, chest pain, diarrhea, fever or chills. Patient reports that his last drink was in the morning before he called the EMS. Past medical history: As per HPI Past surgical history: Right leg surgery, EGD Social history: Patient lives alone and reportedly consumes 12 beers a day but denies smoking or other illegal drug use Medications: Eliquis 5 mg b.i.d., atenolol 50 mg b.i.d., escitalopram 10 mg, lisinopril 40 mg, metoprolol succinate 25 mg, quetiapine 100 mg Brief hospital course Patient was presented to the hospital chief complaint of difficulty swallowing. Patient was initially placed on clear liquid diet which she tolerated well. H&H were stable and patient did not have any bleeding, no melena or hematochezia. Patient tolerated food well and GI were consulted for further evaluation. Patient underwent upper endoscopy which showed Velez's esophagitis, mild gastritis and mild paroxysmal esophageal candidal esophagitis. Patient was with a is done Protonix and sucralfate and continued on full liquid diet which he tolerated well. Patient was discharged in stable condition to home. Discharge plan Follow up with the PCP in 1 week Follow up with the GI outpatient clinic in 1-2 weeks. Medications: Protonix 40 mg b.i.d. Sucralfate 1 g p.o. q.i.d. Nystatin 5 mL swish and swallow q.i.d. for 5 days Continued on home medications Diet- Continue on full liquid diet for a week and then advance diet to pureed/mechanical soft as tolerated Consults/Reason for consult GI consultation for difficulty swallowing Operations or Procedures Operative Report DATE OF OPERATION: 05/10/24 PROCEDURE: Upper Endoscopy with biopsy. PREOPERATIVE INDICATION: The patient is a 68 -year-old male undergoing endoscopy for oropharyngeal dysphagia and history of severe esophagitis POSTOPERATIVE DIAGNOSES: 1. Patient had a 4 cm sliding-type hiatal hernia with evidence of Velez's esophagitis and circumferential and linear ulceration extending throughout the length of the esophagus with slight narrowing in the mid esophagus in the area of the extensive ulceration and multiple biopsies were obtained 2. There was evidence of mild candidal esophagitis in the proximal esophagus 3. Mild gastritis otherwise normal examination up to the 2nd and 3rd part of the duodenum PROCEDURE PERFORMED BY: Nolan Mendoza GI NURSE: Reji SCOPE: Olympus videoendoscope. ASA CLASS: 3. PREOPERATIVE MEDICATIONS: Mac Dr. Summer freed PROCEDURE IN DETAIL: After obtaining an informed consent, the patient was placed on left lateral decubitus position. The patient was then sedated with the above medications. A bite block was placed between his teeth. The endoscope was then passed through the oropharynx, into the esophagus, and through the stomach and pylorus up to the second and third part of the duodenum. The endoscope was then withdrawn. The 2nd and 3rd part of the duodenum and the duodenal bulb were normal. Duodenal biopsies were obtained The pre-pyloric area antrum and body showed mild gastritis with some hyperemia erythema. Gastric biopsies were obtained. On retroflexion and straight on view the patient had normal cardia and fundus. There was a superficial ulceration with submucosal edema in the mid gastric area from which biopsies were obtained The endoscope was then withdrawn into the distal esophagus where the patient had a 4-5 cm sliding-type hiatal hernia. This was contiguous with an area of Velez's esophagitis that was extending almost throughout the entire diet length of the esophagus with extensive ulceration both linear and circumferential more prominent in the mid esophagus with slight narrowing in this area. However at this time no dilation was felt to be safe or required. Multiple biopsies were obtained. In the proximal esophagus there was evidence of some candidal esophagitis from which biopsies were obtained The patient tolerated the procedure well without difficulty. COMPLICATIONS : None SPECIMENS: Duodenal biopsies Gastric biopsies Esophageal biopsies DISPOSITION: Transfer back to the floor Stable PLAN: 1. Await for biopsy result 2. Will place pt on Protonix 40 mg bid IV 3. Carafate suspension 1 g p.o. 4 times a day 4. Nystatin swish and swallow 5 mL p.o. three times a day 5. Start him on a full liquid diet advance slowly to pureed and then soft mechanical as tolerated 6. DC aspirin NSAIDs smoking alcohol and lifestyle modifications for GERD 7. If the patient does not improve we will consider trial of Voquenza a potassium channel blocking agent NOLAN MENDOZA MD May 10, 2024 14:44 Condition at Discharge: Good Final Diagnosis/Problems List # dysphagia likely due to esophageal ulcers with a possible stricture # Barretts esophagitis # esophageal ulcers # Mild esopghageal narrowing # mild gastritis # dyspepsia # H/o gastroduodenitis # alcohol withdrawal # paroxysmal atrial fibrillation # hypertensive heart disease with systolic versus diastolic heart failure Discharge Disposition: Home Discharge Instruct/Medications Diet: See Comment Diet comment: continue on full liquid diet for a week followed by prograssing to pureed diet as tolerated and then advance to mechanical soft diet if tolerated Activity: No Restrictions, As Tolerated Follow Up/Referral: Follow up with the PCP in one week Follow up the GI in the outpatient clinic in 2-4 weeks Medications: as per EMR Discharge Statement: "Patient was advised to return to the ER or call 911 if any headaches, dizziness, shortness of breath, chest pain, abdominal pain, bleeding, fevers, or worsening of medical condition. Patient was counseled about treatment plan, medications, possible side effects, patientverbalized understanding. All questions were answered to the best of my ability. This discharge took greater then 30 minutes in planning, reviewing documentation, counseling the patient, and discussing with other team members." ASSESSMENT ASSESSMENT Assessment dysphagia due to esophageal ulcers Date of Service: May 11, 2024 Billing Provider: HENNY SOLARES MD Common Visit Codes: 17699-XXL/OBS DISCH DAY >30min VANDANA GREGORY RESIDENT May 11, 2024 22:30 HENNY SOLARES MD May 13, 2024 10:12
== END 2024-05-11 13:30 | disposition home or self-care (01) | DRG 381 ==
LOC: ER 07:46 → EDBD 07:46 → OVERFLOW 11:46 → ER 11:52 → TELE-WESTW 22:18
PROVIDERS: ADMIT Student in an Organized Health Care Education/Training Program; ATTEND Student in an Organized Health Care Education/Training Program
PROC: 0DB68ZX Excision of Stomach, Via Natural or Artificial Opening Endoscopic, Diagnostic (ICD-10-PCS; 2024-05-10)
PROC: 0DB58ZX Excision of Esophagus, Via Natural or Artificial Opening Endoscopic, Diagnostic (ICD-10-PCS; 2024-05-10)
PROC: 0DB98ZX Excision of Duodenum, Via Natural or Artificial Opening Endoscopic, Diagnostic (ICD-10-PCS; principal; 2024-05-10 14:20)
DX: K22.70 Barrett's esophagus without dysplasia (principal); B37.81 Candidal esophagitis; F10.139 Alcohol abuse with withdrawal, unspecified; I50.40 Unspecified combined systolic (congestive) and diastolic (congestive) heart failure; E87.1 Hypo-osmolality and hyponatremia; K27.9 Peptic ulcer, site unspecified, unspecified as acute or chronic, without hemorrhage or perforation; K52.9 Noninfective gastroenteritis and colitis, unspecified; I48.91 Unspecified atrial fibrillation; E78.5 Hyperlipidemia, unspecified; M06.9 Rheumatoid arthritis, unspecified; F41.9 Anxiety disorder, unspecified; I25.10 Atherosclerotic heart disease of native coronary artery without angina pectoris; I48.0 Paroxysmal atrial fibrillation; K29.70 Gastritis, unspecified, without bleeding; I11.0 Hypertensive heart disease with heart failure; K44.9 Diaphragmatic hernia without obstruction or gangrene; J98.4 Other disorders of lung; Y90.9 Presence of alcohol in blood, level not specified; Z98.61 Coronary angioplasty status; Z79.899 Other long term (current) drug therapy; Z79.2 Long term (current) use of antibiotics
CPT/HCPCS: 36415; 71045; 74220; 80048; 80053; 83735; 83880; 84100; 84484; 85025; 85610; 85730; 96360; G0378; J1885; J2250; J2405; J2470; J2704; J7060